=== PATIENT | female | born 1970 | race Caucasian/White ===

== ENCOUNTER → 2016-10-05 | Outpatient (CLI) | payer MEDICARE ==
[~2016-10-05] MED LIST: ADV500INH INH; ALBU83IN INH; ARIP15TAB PO; ASCO500T PO; CALC1TAB9 PO; CALCD50TA PO; CLON1TAB PO; COMBAER6 INH; DOCU100T8 PO; DRIS50002 PO; ENOX30IN3 SC; FLUV100T2 PO; GABA-279 PO; HYDR-4274 PO; HYDR25TAB PO; IPRASOL4 INH; LABE10TAB PO; LISI40TAB PO; LOVE1INJ2 SC; NEUR100C PO; OXYC-517 PO; OXYC15TA76 PO; OXYC1TAB56 PO; PRED25TA PO; PRED5TA PO; PROA1AER INH; SENN1TAB4 PO; SERT-138 PO; SULF1TAB72 PO; VITA-122 PO
--- NOTE | 2016-10-05 08:44 | REP ---
Chest x-ray: Two views. History: Essential hypertension. . Comparison study: No comparison chest x-ray . Findings: The lungs are well inflated and free of infiltrate. The pleural angles are sharp. The heart size is normal. Pulmonary vasculature is not increased. No significant bony abnormality is seen. There is mild old wedging of one of the lower thoracic vertebrae. Degenerative disc changes are seen in association with this. There are clips in the right upper quadrant of the abdomen. Impression: Old mild wedging of one of the lower thoracic vertebrae, otherwise negative chest x-ray. Signed by Ivan Jacobson MD 10/05/2016 08:36 A
[2016-10-05 13:59] LABS: INR 0.89
[2016-10-05 14:05] LABS: BASO % 0.4 % (0.0-1.0); EOS # 0.2 K/mm3 (0.0-0.50); EOS % 1.6 % (0.0-3.0); LARGE UNSTAINED CELL # 0.1 K/mm3 (0.0-0.4); LYMPH % 18.2 % (24.0-44.0); MEAN CORPUSCULAR HEMOGLOBIN 28.8 pg (27.0-33.0); MEAN CORPUSCULAR HGB CONC 33.8 g/dl (32.0-36.5); MEAN CORPUSCULAR VOLUME 85.2 fl (80.0-96.0); MONO # 0.6 K/mm3 (0.0-0.8); MONO % 5.3 % (0.0-5.0); NEUTROPHILS # 8.2 K/mm3 (1.8-7.7); NEUTROPHILS % 73.5 % (36.0-66.0); PLATELET COUNT, AUTOMATED 334 k/mm3 (150-450); RED CELL DISTRIBUTION WIDTH 15.5 % (11.5-14.5); WHITE BLOOD COUNT 11.2 K/mm3 (4.0-10.0)
[2016-10-05 14:06] LABS: ANION GAP 9 MEQ/L (8-16); BLOOD UREA NITROGEN 13 MG/DL (7-18); CARBON DIOXIDE LEVEL 31 MEQ/L (21-32); CHLORIDE LEVEL 101 MEQ/L (98-107); CREATININE FOR GFR 0.59 MG/DL (0.55-1.02); GLOMERULAR FILTRATION RATE > 60.0 (>58); GLUCOSE, FASTING 110 MG/DL (70-105); POTASSIUM SERUM 3.8 MEQ/L (3.5-5.1); SODIUM LEVEL 141 MEQ/L (136-145)
== END ==
LOC: M ADAMS 08:02
PROVIDERS: ATTEND Nurse Practitioner Family
DX: Z01.818 Encounter for other preprocedural examination (principal); M16.12 Unilateral primary osteoarthritis, left hip; I10 Essential (primary) hypertension; E78.5 Hyperlipidemia, unspecified; E27.9 Disorder of adrenal gland, unspecified; J44.9 Chronic obstructive pulmonary disease, unspecified

== ENCOUNTER 2016-10-26 06:59 | Emergency (ER) | payer MEDICARE ==
[2016-10-26] MEDS ORDERED: HYDROmorphone HCL 1 MG/ML SYRINGE (J1170) As Ordered ONE (07:26)
--- NOTE | 2016-10-26 08:14 | REP ---
Clinical: Status post arthroplasty. Technique: AP and cross-table lateral views. Findings: The patient is status post left hip replacement with normal positioning and appearance to the femoral and acetabular components. There is evidence for prior fixation involving the left ischium and pubic rami due to trauma. Free fracture fragments/dystrophic calcifications are identified superior to the galena proximal femur. AP view demonstrates a screw extending at the 12 o'clock position with its tip through bone into the adjacent soft tissue. Impression: Status post left hip replacement as described above. Signed by Garth Smiley MD 10/26/2016 08:06 A
--- NOTE | 2016-10-26 09:01 | REP ---
Left lower extremity Duplex Doppler venous ultrasound: Real time compression and duplex Doppler interrogation of the left lower extremity deep venous system is performed. The left common femoral, superficial femoral and popliteal veins are fully compressible with transducer pressure and demonstrate normal spontaneous and phasic flow, without evidence of deep venous thrombosis. Impression: No evidence of deep venous thrombosis of the left lower extremity femoral popliteal venous system. Incidental note is made of left inguinal lymph nodes, the largest measuring 2.0 x 2.3 x 0.6 cm. Signed by Antwon Carranza MD 10/26/2016 08:53 A
--- NOTE | 2016-10-26 09:49 | EDDOCDS ---
Physician Documentation [facility] Name: Maricel Yates Age: 46 yrs Sex: Female : 1970 Arrival Date: 10/26/2016 Time: 06:59 Bed I2 / M2 Private MD: Tomasa Chapa D Disposition: 10/26/16 09:39 Discharged to Home/Self Care. Impression: Pain in left hip - post-op. - Condition is Stable. - Discharge Instructions: Hip Pain. - Prescriptions for oxycodone 5 mg Oral Tablet - take 1 tablet by ORAL route every 4 hours As needed MDD: 6 tabs; 20 tablet. - Medication Reconciliation form. - Follow up: Emergency Department; When: Call to arrange an appointment; Reason: Wound/Symptom Recheck, Recheck today's complaints, Worsening of conditions, Continuance of care. Follow up: Private Physician; When: Call to arrange an appointment; Reason: Wound/Symptom Recheck, Recheck today's complaints, Worsening of conditions, Continuance of care. - Problem is an acute exacerbation. - Symptoms have improved. - Notes: Call your surgeon for follow up and precription refill upon discharge. Historical: - Allergies: Strawberries; TETRACYCLINES; Theophylline; - Home Meds: 1. Abilify 15 mg Oral tab 1 tab once daily 2. albuterol sulfate 2.5 mg /3 mL (0.083 %) Inhl nebu 3 mL every 4 hours 3. Combivent 18-103 mcg/actuation Inhl aero 4 puffs twice a day 4. fluvoxamine 100 mg Oral tab 1 tab 2 times per day 5. gabapentin 100 mg Oral cap 1 caps 3 times per day 6. hydrochlorothiazide 25 mg Oral tab once daily 7. hydroxyzine HCl 50 mg Oral tab nightly 8. Klonopin 2 mg Oral tab 3 times per day 9. labetalol 100 mg Oral tab 1 tab 2 times per day 10. Vitamin D Oral 16054 unit daily 11. Zoloft 50 mg Oral tab 2 tabs once daily - PMHx: agorophobia; Anxiety; Asthma; COPD; Depression; Emphysema; Hypertension; OCD; - PSHx: Hysterectomy; Cholecystectomy; Knee surgery- Right; left hip surgery x3; - Social history: Smoking status: Patient uses tobacco products, heavy tobacco smoker. No barriers to communication noted, The patient speaks fluent Belizean, Speaks appropriately for age. - Family history: Not pertinent. - : The pt / caregiver states he / she is not on anticoagulants. Home medication list is obtained from the patient. - Exposure Risk Screening:: None identified. 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 3 in. (160.02 cm); Pain 10/; 08:15 BP 172 / 94; Pulse 108; Resp 16; Pulse Ox 98% on R/A; jmk 09:44 BP 169 / 88; Pulse 88; Resp 16; Temp 96.8; Pulse Ox 98% on R/A; jmk 07:10 Body Mass Index 31.53 (80.74 kg, 160.02 cm) mlb1 MDM: 07:10 Undress patient appropriately for examination ordered. cc10 07:25 Dilaudid - HYDROmorphone 1 mg IM once ordered. cc10 07:25 Hip, (AP/Lat) Ordered. EDMS 07:43 Financial registration complete. lg 08:05 US Lower Extremity R/O DVT Ordered. EDMS 08:51 Hip, (AP/Lat) Reviewed. cc10 09:35 [facility] Payment Agreement was scanned into [employer] and attached to record. lg Administered Medications: 07:30 Drug: Dilaudid - HYDROmorphone 1 mg [hydromorphone 1 mg/mL injection syringe (1 mL)] natan Route: IM; Site: left gluteus; Signatures: Dispatcher [employer] EDMS Johnnie Perez RN RN Casimiro Abebe, Reg Reg lg Ankit Steel RN RN mlb1 Rogerio Dominguez PA-C PA-C cc10 The chart was reviewed and I authenticate all verbal orders and agree with the evaluation and treatment provided.Attachments: 09:35 [facility] Payment Agreement lg MTDD
--- NOTE | 2016-10-26 09:49 | EDDOCDS ---
Nurse's Notes Name: Maricel Yates Age: 46 yrs Sex: Female : 1970 Arrival Date: 10/26/2016 Time: 06:59 Bed I2 / M2 Private MD: Tomasa Chapa D Diagnosis: Pain in left hip-post-op Presentation: 10/26 07:06 Presenting complaint: Patient states: Total left hip replacement 9 days ago, increased mlb1 pain since therapy last evening "I was on Oxy and I'm out I need to be admitted or something for pain". Adult Sepsis Screening: The patient does not have new or worsening altered mentation. Patient's respiratory rate is less than 22. Systolic blood pressure is greater than 100. Patient has a qSOFA score of 0- Negative Sepsis Screen. Suicide/Homicide risk assessment- the patient denies having any suicidal and/or homicidal ideations and does not present with any other emotional, behavioral or mental health complaints. 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 Transition of care: patient was not received from another setting of care. 07:06 Acuity: NICO Level 4 mlb1 07:06 Method Of Arrival: Walkin/Carried/Asstd mlb1 Triage Assessment: 07:10 General: Appears distressed, Behavior is cooperative. Pain: Location: left hip Pain mlb1 currently is 10 out of 10 on a pain scale. HIV screening NA for this visit Offered previously. 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 Abilify 15 mg Oral tab 1 tab once daily 2. albuterol sulfate 2.5 mg /3 mL (0.083 %) Inhl nebu 3 mL every 4 hours 3. Combivent 18-103 mcg/actuation Inhl aero 4 puffs twice a day 4. fluvoxamine 100 mg Oral tab 1 tab 2 times per day 5. gabapentin 100 mg Oral cap 1 caps 3 times per day 6. hydrochlorothiazide 25 mg Oral tab once daily 7. hydroxyzine HCl 50 mg Oral tab nightly 8. Klonopin 2 mg Oral tab 3 times per day 9. labetalol 100 mg Oral tab 1 tab 2 times per day 10. Vitamin D Oral 54455 unit daily 11. Zoloft 50 mg Oral tab 2 tabs once daily - PMHx: agorophobia; Anxiety; Asthma; COPD; Depression; Emphysema; Hypertension; OCD; - PSHx: Hysterectomy; Cholecystectomy; Knee surgery- Right; left hip surgery x3; - Social history: Smoking status: Patient uses tobacco products, heavy tobacco smoker. No barriers to communication noted, The patient speaks fluent Emirati, Speaks appropriately for age. - Family history: Not pertinent. - : The pt / caregiver states he / she is not on anticoagulants. Home medication list is obtained from the patient. - Exposure Risk Screening:: None identified. Screenin:23 Screening information is obtained from the patient. Fall risk: No risks identified. [facility] Assistance ADL's: requires no assistance with activities of daily living. Abuse/DV Screen: The patient / caregiver reports he/she is: not in a situation that causes fear, pain or injury. Nutritional screening: No deficits noted. Advance Directives: Currently, there is no health care proxy. There is no active DNR order. There is no living will. There is no Power of Plastic Finisher. home support is adequate. Assessment: 07:21 General: Appears skin warm and dry color satisfactory. moist pink oral mucosa. teary. k indicates last dose of narcotic this am without effect. reports one attempt to contact surgeon without success. surgical incision is unremarkable. cal intact and edges approximated without increased warmth, redness or drainage.. 08:13 General: Appears x rays completed. initially reports no change in pain, but later in k conversation reports pain has decreased to 8/10 from 10/10. heat applied for comofort.. 09:44 General: Appears reports pain has decreased to 6/10 and is now receptive to discharge.. [facility] Vital Signs: 07:10 BP 169 / 94; Pulse 110; Resp 18; Temp 98.4(TE); Pulse Ox 95% on R/A; Weight 80.74 kg mlb1 (R); Height 5 ft. 3 in. (160.02 cm); Pain 10/10; 08:15 BP 172 / 94; Pulse 108; Resp 16; Pulse Ox 98% on R/A; jmk 09:44 BP 169 / 88; Pulse 88; Resp 16; Temp 96.8; Pulse Ox 98% on R/A; k 07:10 Body Mass Index 31.53 (80.74 kg, 160.02 cm) [facility] Vitals: 07:10 Log In Time: October 26, 2016 at 06:59. mlb1 ED Course: 07:01 Patient visited by Bassem Watson Reg. pm4 07:01 Tomasa Chapa is Private Physician. pm4 07:01 Patient moved to Waiting pm4 07:06 Patient visited by Ankit Steel RN. mlb1 07:07 Triage Initiated mlb1 07:11 Patient visited by Ankit Steel RN. mlb1 07:12 Rogerio Dominguez PA-C is PHCP. cc10 07:12 Philip Macedo MD is Attending Physician. cc10 07:12 Patient moved to I2 / M2 cc10 07:17 Patient visited by Rogerio Dominguez PA-C. cc10 07:17 Patient visited by Rogerio Dominguez PA-C. cc10 07:23 The patient / caregiver is instructed regarding the plan of care and ED course. jmk 08:16 Patient visited by Johnnie Perez RN. jmk 08:17 Patient moved to Ultrasound eg2 08:18 Hip, (AP/Lat) Returned. EDMS 08:38 Patient moved to I2 / M2 jmk 09:32 US Lower Extremity R/O DVT Returned. EDMS 09:35 [facility] Payment Agreement was scanned into [employer] and attached to record. lg 09:44 No IV's were initiated during this patient's visit. No procedures done that require [facility] assistance. Administered Medications: 07:30 Drug: Dilaudid - HYDROmorphone 1 mg [hydromorphone 1 mg/mL injection syringe (1 mL)] [facility] Route: IM; Site: left gluteus; Order Results: Radiology Order: Hip, (AP/Lat) Test: Hip, (AP/Lat) REASON FOR EXAMINATION: post-op; Clinical: Status post arthroplasty.; ; Technique: AP and cross-table lateral views.; ; Findings: The patient is status post left hip replacement with normal; positioning and appearance to the femoral and acetabular components. There is; evidence for prior fixation involving the left ischium and pubic rami due to; trauma. Free fracture fragments/dystrophic calcifications are identified; superior to the eagle proximal femur. AP view demonstrates a screw extending at; the 12 o'clock position with its tip through bone into the adjacent soft tissue.; ; ; Impression:; Status post left hip replacement as described above.; ; ; Signed by; Garth Smiley MD 10/26/2016 08:06 A; Radiology Order: US Lower Extremity R/O DVT Test: US Lower Extremity R/O DVT REASON FOR EXAMINATION: r/o DVT; Left lower extremity Duplex Doppler venous ultrasound:; ; Real time compression and duplex Doppler interrogation of the left lower; extremity deep venous system is performed. The left common femoral, superficial; femoral and popliteal veins are fully compressible with transducer pressure and; demonstrate normal spontaneous and phasic flow, without evidence of deep venous; thrombosis.; ; Impression:; ; No evidence of deep venous thrombosis of the left lower extremity femoral; popliteal venous system. Incidental note is made of left inguinal lymph nodes,; the largest measuring 2.0 x 2.3 x 0.6 cm.; ; ; Signed by; Antwon Carranza MD 10/26/2016 08:53 A; Outcome: 09:39 Discharge ordered by Provider. cc10 09:44 Discharge Assessment: Patient awake, alert and oriented x 3. No cognitive and/or k functional deficits noted. Patient verbalized understanding of disposition instructions. patient administered narcotics - yes. The following High Risk Discharge criteria are identified: None. Discharged to home with crutches. Condition: good. Discharge instructions given to patient. Ultrasound Study completed. Property :Personal belongings accompany Pt. 09:48 Patient left the ED. natan Signatures: Dispatcher [employer] EDMS Johnnie Perez,RN Casimiro Richter, Reg Reg lg Ankit Steel, RN RN mlYvrose Jin eg2 Rogerio Dominguez, PA-C PA-C cc10 Bassem Watson, Reg Reg pm4 MTDD
--- NOTE | 2016-10-28 10:49 | EDDOCDS ---
Physician Documentation [facility] Name: Maricel Yates Age: 46 yrs Sex: Female : 1970 Arrival Date: 10/26/2016 Time: 06:59 Bed I2 / M2 Private MD: Tomasa Clarke D Disposition: 10/26/16 09:39 Discharged to Home/Self Care. Impression: Pain in left hip - post-op. - Condition is Stable. - Discharge Instructions: Hip Pain. - Prescriptions for oxycodone 5 mg Oral Tablet - take 1 tablet by ORAL route every 4 hours As needed MDD: 6 tabs; 20 tablet. - Medication Reconciliation form. - Follow up: Emergency Department; When: Call to arrange an appointment; Reason: Wound/Symptom Recheck, Recheck today's complaints, Worsening of conditions, Continuance of care. Follow up: Private Physician; When: Call to arrange an appointment; Reason: Wound/Symptom Recheck, Recheck today's complaints, Worsening of conditions, Continuance of care. - Problem is an acute exacerbation. - Symptoms have improved. - Notes: Call your surgeon for follow up and precription refill upon discharge. Historical: - Allergies: Strawberries; TETRACYCLINES; Theophylline; - Home Meds: 1. Abilify 15 mg Oral tab 1 tab once daily 2. albuterol sulfate 2.5 mg /3 mL (0.083 %) Inhl nebu 3 mL every 4 hours 3. Combivent 18-103 mcg/actuation Inhl aero 4 puffs twice a day 4. fluvoxamine 100 mg Oral tab 1 tab 2 times per day 5. gabapentin 100 mg Oral cap 1 caps 3 times per day 6. hydrochlorothiazide 25 mg Oral tab once daily 7. hydroxyzine HCl 50 mg Oral tab nightly 8. Klonopin 2 mg Oral tab 3 times per day 9. labetalol 100 mg Oral tab 1 tab 2 times per day 10. Vitamin D Oral 85414 unit daily 11. Zoloft 50 mg Oral tab 2 tabs once daily - PMHx: agorophobia; Anxiety; Asthma; COPD; Depression; Emphysema; Hypertension; OCD; - PSHx: Hysterectomy; Cholecystectomy; Knee surgery- Right; left hip surgery x3; - Social history: Smoking status: Patient uses tobacco products, heavy tobacco smoker. No barriers to communication noted, The patient speaks fluent Lao, Speaks appropriately for age. - Family history: Not pertinent. - : The pt / caregiver states he / she is not on anticoagulants. Home medication list is obtained from the patient. - Exposure Risk Screening:: None identified. 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 3 in. (160.02 cm); Pain 10/10; 08:15 BP 172 / 94; Pulse 108; Resp 16; Pulse Ox 98% on R/A; jmk 09:44 BP 169 / 88; Pulse 88; Resp 16; Temp 96.8; Pulse Ox 98% on R/A; jmk 07:10 Body Mass Index 31.53 (80.74 kg, 160.02 cm) mlb1 MDM: 07:10 Undress patient appropriately for examination ordered. cc10 07:25 Dilaudid - HYDROmorphone 1 mg IM once ordered. cc10 07:25 Hip, (AP/Lat) Ordered. EDMS 07:43 Financial registration complete. lg 08:05 US Lower Extremity R/O DVT Ordered. EDMS 08:51 Hip, (AP/Lat) Reviewed. cc10 09:35 [facility] Payment Agreement was scanned into [employer] and attached to record. lg 12:51 T-Sheet-- Draft Copy was scanned into [employer] and attached to record. klr 12:59 ED course: trisha lcarke faxed formal report of us extermity for fu mlg. ml Administered Medications: 07:30 Drug: Dilaudid - HYDROmorphone 1 mg [hydromorphone 1 mg/mL injection syringe (1 mL)] natan Route: IM; Site: left gluteus; Signatures: Dispatcher [employer] EDDC Mirna Cramer MD MD ml Johnnie Perez,RN RN Casimiro Calvo, Reg Reg lg Ankit Steel RN RN mlb1 Rogerio Dominguez PA-C PA-Dawson cc10 Libby Evans The chart was reviewed and I authenticate all verbal orders and agree with the evaluation and treatment provided.Attachments: 09:35 [facility] Payment Agreement lg 12:51 T-Sheet-- Draft Copy jaswant Chart Complete MTDD
--- NOTE | 2016-10-28 10:49 | EDDOCDS ---
Physician Documentation [facility] Name: Maricel Yates Age: 46 yrs Sex: Female : 1970 Arrival Date: 10/26/2016 Time: 06:59 Bed I2 / M2 Private MD: Tomasa Clarke D Disposition: 10/26/16 09:39 Discharged to Home/Self Care. Impression: Pain in left hip - post-op. - Condition is Stable. - Discharge Instructions: Hip Pain. - Prescriptions for oxycodone 5 mg Oral Tablet - take 1 tablet by ORAL route every 4 hours As needed MDD: 6 tabs; 20 tablet. - Medication Reconciliation form. - Follow up: Emergency Department; When: Call to arrange an appointment; Reason: Wound/Symptom Recheck, Recheck today's complaints, Worsening of conditions, Continuance of care. Follow up: Private Physician; When: Call to arrange an appointment; Reason: Wound/Symptom Recheck, Recheck today's complaints, Worsening of conditions, Continuance of care. - Problem is an acute exacerbation. - Symptoms have improved. - Notes: Call your surgeon for follow up and precription refill upon discharge. Historical: - Allergies: Strawberries; TETRACYCLINES; Theophylline; - Home Meds: 1. Abilify 15 mg Oral tab 1 tab once daily 2. albuterol sulfate 2.5 mg /3 mL (0.083 %) Inhl nebu 3 mL every 4 hours 3. Combivent 18-103 mcg/actuation Inhl aero 4 puffs twice a day 4. fluvoxamine 100 mg Oral tab 1 tab 2 times per day 5. gabapentin 100 mg Oral cap 1 caps 3 times per day 6. hydrochlorothiazide 25 mg Oral tab once daily 7. hydroxyzine HCl 50 mg Oral tab nightly 8. Klonopin 2 mg Oral tab 3 times per day 9. labetalol 100 mg Oral tab 1 tab 2 times per day 10. Vitamin D Oral 89383 unit daily 11. Zoloft 50 mg Oral tab 2 tabs once daily - PMHx: agorophobia; Anxiety; Asthma; COPD; Depression; Emphysema; Hypertension; OCD; - PSHx: Hysterectomy; Cholecystectomy; Knee surgery- Right; left hip surgery x3; - Social history: Smoking status: Patient uses tobacco products, heavy tobacco smoker. No barriers to communication noted, The patient speaks fluent Tristanian, Speaks appropriately for age. - Family history: Not pertinent. - : The pt / caregiver states he / she is not on anticoagulants. Home medication list is obtained from the patient. - Exposure Risk Screening:: None identified. 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 3 in. (160.02 cm); Pain 10/10; 08:15 BP 172 / 94; Pulse 108; Resp 16; Pulse Ox 98% on R/A; jmk 09:44 BP 169 / 88; Pulse 88; Resp 16; Temp 96.8; Pulse Ox 98% on R/A; jmk 07:10 Body Mass Index 31.53 (80.74 kg, 160.02 cm) mlb1 MDM: 07:10 Undress patient appropriately for examination ordered. cc10 07:25 Dilaudid - HYDROmorphone 1 mg IM once ordered. cc10 07:25 Hip, (AP/Lat) Ordered. EDMS 07:43 Financial registration complete. lg 08:05 US Lower Extremity R/O DVT Ordered. EDMS 08:51 Hip, (AP/Lat) Reviewed. cc10 09:35 [facility] Payment Agreement was scanned into [employer] and attached to record. lg 12:51 T-Sheet-- Draft Copy was scanned into [employer] and attached to record. klr 12:59 ED course: trisha clarke faxed formal report of us extermity for fu mlg. ml Administered Medications: 07:30 Drug: Dilaudid - HYDROmorphone 1 mg [hydromorphone 1 mg/mL injection syringe (1 mL)] natan Route: IM; Site: left gluteus; Signatures: Dispatcher [employer] EDOH Mirna Cramer MD MD ml Johnnie Perez,RN RN Casimiro Calvo, Reg Reg lg Ankit Steel RN RN mlb1 Rogerio Dominguez PA-C PA-Dawson cc10 Libby Evans The chart was reviewed and I authenticate all verbal orders and agree with the evaluation and treatment provided.Attachments: 09:35 [facility] Payment Agreement lg 12:51 T-Sheet-- Draft Copy jaswant Chart Complete MTDD
--- NOTE | 2016-10-28 10:49 | EDDOCDS ---
Nurse's Notes [facility] Name: Maricel Yates Age: 46 yrs Sex: Female : 1970 Arrival Date: 10/26/2016 Time: 06:59 Bed I2 / M2 Private MD: Tomasa Chapa D Diagnosis: Pain in left hip-post-op Presentation: 10/26 07:06 Presenting complaint: Patient states: Total left hip replacement 9 days ago, increased mlb1 pain since therapy last evening "I was on Oxy and I'm out I need to be admitted or something for pain". Adult Sepsis Screening: The patient does not have new or worsening altered mentation. Patient's respiratory rate is less than 22. Systolic blood pressure is greater than 100. Patient has a qSOFA score of 0- Negative Sepsis Screen. Suicide/Homicide risk assessment- the patient denies having any suicidal and/or homicidal ideations and does not present with any other emotional, behavioral or mental health complaints. Status: Patient is not a service delivery management consultant or dependent. Transition of care: patient was not received from another setting of care. 07:06 Acuity: NICO Level 4 mlb1 07:06 Method Of Arrival: Walkin/Carried/Asstd mlb1 Triage Assessment: 07:10 General: Appears distressed, Behavior is cooperative. Pain: Location: left hip Pain mlb1 currently is 10 out of 10 on a pain scale. HIV screening NA for this visit Offered previously. 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 Abilify 15 mg Oral tab 1 tab once daily 2. albuterol sulfate 2.5 mg /3 mL (0.083 %) Inhl nebu 3 mL every 4 hours 3. Combivent 18-103 mcg/actuation Inhl aero 4 puffs twice a day 4. fluvoxamine 100 mg Oral tab 1 tab 2 times per day 5. gabapentin 100 mg Oral cap 1 caps 3 times per day 6. hydrochlorothiazide 25 mg Oral tab once daily 7. hydroxyzine HCl 50 mg Oral tab nightly 8. Klonopin 2 mg Oral tab 3 times per day 9. labetalol 100 mg Oral tab 1 tab 2 times per day 10. Vitamin D Oral 85334 unit daily 11. Zoloft 50 mg Oral tab 2 tabs once daily - PMHx: agorophobia; Anxiety; Asthma; COPD; Depression; Emphysema; Hypertension; OCD; - PSHx: Hysterectomy; Cholecystectomy; Knee surgery- Right; left hip surgery x3; - Social history: Smoking status: Patient uses tobacco products, heavy tobacco smoker. No barriers to communication noted, The patient speaks fluent Palestinian, Speaks appropriately for age. - Family history: Not pertinent. - : The pt / caregiver states he / she is not on anticoagulants. Home medication list is obtained from the patient. - Exposure Risk Screening:: None identified. Screenin:23 Screening information is obtained from the patient. Fall risk: No risks identified. [facility] Assistance ADL's: requires no assistance with activities of daily living. Abuse/DV Screen: The patient / caregiver reports he/she is: not in a situation that causes fear, pain or injury. Nutritional screening: No deficits noted. Advance Directives: Currently, there is no health care proxy. There is no active DNR order. There is no living will. There is no Power of Pharmacy Innovation Assistant. home support is adequate. Assessment: 07:21 General: Appears skin warm and dry color satisfactory. moist pink oral mucosa. teary. k indicates last dose of narcotic this am without effect. reports one attempt to contact surgeon without success. surgical incision is unremarkable. cal intact and edges approximated without increased warmth, redness or drainage.. 08:13 General: Appears x rays completed. initially reports no change in pain, but later in k conversation reports pain has decreased to 8/10 from 10/10. heat applied for comofort.. 09:44 General: Appears reports pain has decreased to 6/10 and is now receptive to discharge.. [facility] Vital Signs: 07:10 BP 169 / 94; Pulse 110; Resp 18; Temp 98.4(TE); Pulse Ox 95% on R/A; Weight 80.74 kg mlb1 (R); Height 5 ft. 3 in. (160.02 cm); Pain 10/10; 08:15 BP 172 / 94; Pulse 108; Resp 16; Pulse Ox 98% on R/A; jmk 09:44 BP 169 / 88; Pulse 88; Resp 16; Temp 96.8; Pulse Ox 98% on R/A; k 07:10 Body Mass Index 31.53 (80.74 kg, 160.02 cm) [facility] Vitals: 07:10 Log In Time: October 26, 2016 at 06:59. mlb1 ED Course: 07:01 Patient visited by Bassem Watson Reg. pm4 07:01 Tomasa Chapa is Private Physician. pm4 07:01 Patient moved to Waiting pm4 07:06 Patient visited by Ankit Steel RN. mlb1 07:07 Triage Initiated mlb1 07:11 Patient visited by Ankit Steel RN. mlb1 07:12 Rogerio Dominguez PA-C is PHCP. cc10 07:12 Philip Macedo MD is Attending Physician. cc10 07:12 Patient moved to I2 / M2 cc10 07:17 Patient visited by Rogerio Dominguez PA-C. cc10 07:17 Patient visited by Rogerio Dominguez PA-C. cc10 07:23 The patient / caregiver is instructed regarding the plan of care and ED course. jmk 08:16 Patient visited by Johnnie Perez RN. jmk 08:17 Patient moved to Ultrasound eg2 08:18 Hip, (AP/Lat) Returned. EDMS 08:38 Patient moved to I2 / M2 jmk 09:32 US Lower Extremity R/O DVT Returned. EDMS 09:35 [facility] Payment Agreement was scanned into [employer] and attached to record. lg 09:44 No IV's were initiated during this patient's visit. No procedures done that require k assistance. 12:51 T-Sheet-- Draft Copy was scanned into [employer] and attached to record. klr Administered Medications: 07:30 Drug: Dilaudid - HYDROmorphone 1 mg [hydromorphone 1 mg/mL injection syringe (1 mL)] [facility] Route: IM; Site: left gluteus; Order Results: Radiology Order: Hip, (AP/Lat) Test: Hip, (AP/Lat) REASON FOR EXAMINATION: post-op; Clinical: Status post arthroplasty.; ; Technique: AP and cross-table lateral views.; ; Findings: The patient is status post left hip replacement with normal; positioning and appearance to the femoral and acetabular components. There is; evidence for prior fixation involving the left ischium and pubic rami due to; trauma. Free fracture fragments/dystrophic calcifications are identified; superior to the [place] proximal femur. AP view demonstrates a screw extending at; the 12 o'clock position with its tip through bone into the adjacent soft tissue.; ; ; Impression:; Status post left hip replacement as described above.; ; ; Signed by; Garth Smiley MD 10/26/2016 08:06 A; Radiology Order: US Lower Extremity R/O DVT Test: US Lower Extremity R/O DVT REASON FOR EXAMINATION: r/o DVT; Left lower extremity Duplex Doppler venous ultrasound:; ; Real time compression and duplex Doppler interrogation of the left lower; extremity deep venous system is performed. The left common femoral, superficial; femoral and popliteal veins are fully compressible with transducer pressure and; demonstrate normal spontaneous and phasic flow, without evidence of deep venous; thrombosis.; ; Impression:; ; No evidence of deep venous thrombosis of the left lower extremity femoral; popliteal venous system. Incidental note is made of left inguinal lymph nodes,; the largest measuring 2.0 x 2.3 x 0.6 cm.; ; ; Signed by; Antwon Carranza MD 10/26/2016 08:53 A; Outcome: 09:39 Discharge ordered by Provider. cc10 09:44 Discharge Assessment: Patient awake, alert and oriented x 3. No cognitive and/or k functional deficits noted. Patient verbalized understanding of disposition instructions. patient administered narcotics - yes. The following High Risk Discharge criteria are identified: None. Discharged to home with crutches. Condition: good. Discharge instructions given to patient. Ultrasound Study completed. Property :Personal belongings accompany Pt. 09:48 Patient left the ED. [facility] Signatures: Dispatcher [employer] EDMS Johnnie Perez,RN RN Casimiro Calvo, Reg Reg lg Ankit Steel RN RN Yvrose Seals eg2 Rogerio Dominguez PAFlynnC PA-C cc10 Libby Evans Paul, Reg Reg pm4 Chart Complete MTDD
--- NOTE | 2016-11-03 14:08 | EDDOCDS ---
Nurse's Notes [facility] Name: Maricel Yates Age: 46 yrs Sex: Female : 1970 Arrival Date: 10/26/2016 Time: 06:59 Bed I2 / M2 Private MD: Tomasa Chapa D Diagnosis: Pain in left hip-post-op Presentation: 10/26 07:06 Presenting complaint: Patient states: Total left hip replacement 9 days ago, increased mlb1 pain since therapy last evening "I was on Oxy and I'm out I need to be admitted or something for pain". Adult Sepsis Screening: The patient does not have new or worsening altered mentation. Patient's respiratory rate is less than 22. Systolic blood pressure is greater than 100. Patient has a qSOFA score of 0- Negative Sepsis Screen. Suicide/Homicide risk assessment- the patient denies having any suicidal and/or homicidal ideations and does not present with any other emotional, behavioral or mental health complaints. Status: Patient is not a enrollment services dean or dependent. Transition of care: patient was not received from another setting of care. 07:06 Acuity: NICO Level 4 mlb1 07:06 Method Of Arrival: Walkin/Carried/Asstd mlb1 Triage Assessment: 07:10 General: Appears distressed, Behavior is cooperative. Pain: Location: left hip Pain mlb1 currently is 10 out of 10 on a pain scale. HIV screening NA for this visit Offered previously. 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 Abilify 15 mg Oral tab 1 tab once daily 2. albuterol sulfate 2.5 mg /3 mL (0.083 %) Inhl nebu 3 mL every 4 hours 3. Combivent 18-103 mcg/actuation Inhl aero 4 puffs twice a day 4. fluvoxamine 100 mg Oral tab 1 tab 2 times per day 5. gabapentin 100 mg Oral cap 1 caps 3 times per day 6. hydrochlorothiazide 25 mg Oral tab once daily 7. hydroxyzine HCl 50 mg Oral tab nightly 8. Klonopin 2 mg Oral tab 3 times per day 9. labetalol 100 mg Oral tab 1 tab 2 times per day 10. Vitamin D Oral 93484 unit daily 11. Zoloft 50 mg Oral tab 2 tabs once daily - PMHx: agorophobia; Anxiety; Asthma; COPD; Depression; Emphysema; Hypertension; OCD; - PSHx: Hysterectomy; Cholecystectomy; Knee surgery- Right; left hip surgery x3; - Social history: Smoking status: Patient uses tobacco products, heavy tobacco smoker. No barriers to communication noted, The patient speaks fluent Armenian, Speaks appropriately for age. - Family history: Not pertinent. - : The pt / caregiver states he / she is not on anticoagulants. Home medication list is obtained from the patient. - Exposure Risk Screening:: None identified. Screenin:23 Screening information is obtained from the patient. Fall risk: No risks identified. [facility] Assistance ADL's: requires no assistance with activities of daily living. Abuse/DV Screen: The patient / caregiver reports he/she is: not in a situation that causes fear, pain or injury. Nutritional screening: No deficits noted. Advance Directives: Currently, there is no health care proxy. There is no active DNR order. There is no living will. There is no Power of Cuprous Chloride Operator. home support is adequate. Assessment: 07:21 General: Appears skin warm and dry color satisfactory. moist pink oral mucosa. teary. k indicates last dose of narcotic this am without effect. reports one attempt to contact surgeon without success. surgical incision is unremarkable. cal intact and edges approximated without increased warmth, redness or drainage.. 08:13 General: Appears x rays completed. initially reports no change in pain, but later in k conversation reports pain has decreased to 8/10 from 10/10. heat applied for comofort.. 09:44 General: Appears reports pain has decreased to 6/10 and is now receptive to discharge.. [facility] Vital Signs: 07:10 BP 169 / 94; Pulse 110; Resp 18; Temp 98.4(TE); Pulse Ox 95% on R/A; Weight 80.74 kg mlb1 (R); Height 5 ft. 3 in. (160.02 cm); Pain 10/10; 08:15 BP 172 / 94; Pulse 108; Resp 16; Pulse Ox 98% on R/A; jmk 09:44 BP 169 / 88; Pulse 88; Resp 16; Temp 96.8; Pulse Ox 98% on R/A; k 07:10 Body Mass Index 31.53 (80.74 kg, 160.02 cm) [facility] [place] Vitals: 07:10 Log In Time: October 26, 2016 at 06:59. mlb1 ED Course: 07:01 Patient visited by Bassem Watson Reg. pm4 07:01 Tomasa Chapa is Private Physician. pm4 07:01 Patient moved to Waiting pm4 07:06 Patient visited by Ankit Steel RN. mlb1 07:07 Triage Initiated mlb1 07:11 Patient visited by Ankit Steel RN. mlb1 07:12 Rogerio Dominguez PA-C is PHCP. cc10 07:12 Philip Macedo MD is Attending Physician. cc10 07:12 Patient moved to I2 / M2 cc10 07:17 Patient visited by Rogerio Dominguez PA-C. cc10 07:17 Patient visited by Rogerio Dominguez PA-C. cc10 07:23 The patient / caregiver is instructed regarding the plan of care and ED course. jmk 08:16 Patient visited by Johnnie Perez RN. jmk 08:17 Patient moved to Ultrasound eg2 08:18 Hip, (AP/Lat) Returned. EDMS 08:38 Patient moved to I2 / M2 jmk 09:32 US Lower Extremity R/O DVT Returned. EDMS 09:35 [facility] Payment Agreement was scanned into [employer] and attached to record. lg 09:44 No IV's were initiated during this patient's visit. No procedures done that require k assistance. 12:51 T-Sheet-- Draft Copy was scanned into [employer] and attached to record. klr Administered Medications: 07:30 Drug: Dilaudid - HYDROmorphone 1 mg [hydromorphone 1 mg/mL injection syringe (1 mL)] [facility] Route: IM; Site: left gluteus; Order Results: Radiology Order: Hip, (AP/Lat) Test: Hip, (AP/Lat) REASON FOR EXAMINATION: post-op; Clinical: Status post arthroplasty.; ; Technique: AP and cross-table lateral views.; ; Findings: The patient is status post left hip replacement with normal; positioning and appearance to the femoral and acetabular components. There is; evidence for prior fixation involving the left ischium and pubic rami due to; trauma. Free fracture fragments/dystrophic calcifications are identified; superior to the [place] proximal femur. AP view demonstrates a screw extending at; the 12 o'clock position with its tip through bone into the adjacent soft tissue.; ; ; Impression:; Status post left hip replacement as described above.; ; ; Signed by; Garth Smiley MD 10/26/2016 08:06 A; Radiology Order: US Lower Extremity R/O DVT Test: US Lower Extremity R/O DVT REASON FOR EXAMINATION: r/o DVT; Left lower extremity Duplex Doppler venous ultrasound:; ; Real time compression and duplex Doppler interrogation of the left lower; extremity deep venous system is performed. The left common femoral, superficial; femoral and popliteal veins are fully compressible with transducer pressure and; demonstrate normal spontaneous and phasic flow, without evidence of deep venous; thrombosis.; ; Impression:; ; No evidence of deep venous thrombosis of the left lower extremity femoral; popliteal venous system. Incidental note is made of left inguinal lymph nodes,; the largest measuring 2.0 x 2.3 x 0.6 cm.; ; ; Signed by; Antwon Carranza MD 10/26/2016 08:53 A; Outcome: 09:39 Discharge ordered by Provider. cc10 09:44 Discharge Assessment: Patient awake, alert and oriented x 3. No cognitive and/or k functional deficits noted. Patient verbalized understanding of disposition instructions. patient administered narcotics - yes. The following High Risk Discharge criteria are identified: None. Discharged to home with crutches. Condition: good. Discharge instructions given to patient. Ultrasound Study completed. Property :Personal belongings accompany Pt. 09:48 Patient left the ED. natan Addendum: 11/03/2016 14:06 Narrative: patient called back after receiving certified letter - given results of U/S kcs and instructed to f/u with PMD. Signatures: Dispatcher [employer] EDMS Sandra Weems RN Johnnie Jaramillo RN RN jmk Ganter, LoriLee, Reg Reg lg Ankit Steel RN RN mlb1 Yvrose Arroyo eg2 Rogerio Dominguez, PA-C PA-C cc10 Libby Evans Paul, Reg Reg pm4 MTDD
--- NOTE | 2016-11-03 14:08 | EDDOCDS ---
Physician Documentation [facility] Name: Maricel Yates Age: 46 yrs Sex: Female : 1970 Arrival Date: 10/26/2016 Time: 06:59 Bed I2 / M2 Private MD: Tomasa Clarke D Disposition: 10/26/16 09:39 Discharged to Home/Self Care. Impression: Pain in left hip - post-op. - Condition is Stable. - Discharge Instructions: Hip Pain. - Prescriptions for oxycodone 5 mg Oral Tablet - take 1 tablet by ORAL route every 4 hours As needed MDD: 6 tabs; 20 tablet. - Medication Reconciliation form. - Follow up: Emergency Department; When: Call to arrange an appointment; Reason: Wound/Symptom Recheck, Recheck today's complaints, Worsening of conditions, Continuance of care. Follow up: Private Physician; When: Call to arrange an appointment; Reason: Wound/Symptom Recheck, Recheck today's complaints, Worsening of conditions, Continuance of care. - Problem is an acute exacerbation. - Symptoms have improved. - Notes: Call your surgeon for follow up and precription refill upon discharge. Historical: - Allergies: Strawberries; TETRACYCLINES; Theophylline; - Home Meds: 1. Abilify 15 mg Oral tab 1 tab once daily 2. albuterol sulfate 2.5 mg /3 mL (0.083 %) Inhl nebu 3 mL every 4 hours 3. Combivent 18-103 mcg/actuation Inhl aero 4 puffs twice a day 4. fluvoxamine 100 mg Oral tab 1 tab 2 times per day 5. gabapentin 100 mg Oral cap 1 caps 3 times per day 6. hydrochlorothiazide 25 mg Oral tab once daily 7. hydroxyzine HCl 50 mg Oral tab nightly 8. Klonopin 2 mg Oral tab 3 times per day 9. labetalol 100 mg Oral tab 1 tab 2 times per day 10. Vitamin D Oral 86825 unit daily 11. Zoloft 50 mg Oral tab 2 tabs once daily - PMHx: agorophobia; Anxiety; Asthma; COPD; Depression; Emphysema; Hypertension; OCD; - PSHx: Hysterectomy; Cholecystectomy; Knee surgery- Right; left hip surgery x3; - Social history: Smoking status: Patient uses tobacco products, heavy tobacco smoker. No barriers to communication noted, The patient speaks fluent Welsh, Speaks appropriately for age. - Family history: Not pertinent. - : The pt / caregiver states he / she is not on anticoagulants. Home medication list is obtained from the patient. - Exposure Risk Screening:: None identified. 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 3 in. (160.02 cm); Pain 10/10; 08:15 BP 172 / 94; Pulse 108; Resp 16; Pulse Ox 98% on R/A; jmk 09:44 BP 169 / 88; Pulse 88; Resp 16; Temp 96.8; Pulse Ox 98% on R/A; jmk 07:10 Body Mass Index 31.53 (80.74 kg, 160.02 cm) mlb1 MDM: 07:10 Undress patient appropriately for examination ordered. cc10 07:25 Dilaudid - HYDROmorphone 1 mg IM once ordered. cc10 07:25 Hip, (AP/Lat) Ordered. EDMS 07:43 Financial registration complete. lg 08:05 US Lower Extremity R/O DVT Ordered. EDMS 08:51 Hip, (AP/Lat) Reviewed. cc10 09:35 [facility] Payment Agreement was scanned into [employer] and attached to record. lg 12:51 T-Sheet-- Draft Copy was scanned into [employer] and attached to record. klr 12:59 ED course: trisha clarke faxed formal report of us extermity for fu mlg. ml Administered Medications: 07:30 Drug: Dilaudid - HYDROmorphone 1 mg [hydromorphone 1 mg/mL injection syringe (1 mL)] natan Route: IM; Site: left gluteus; Signatures: Dispatcher [employer] EDMD Mirna Cramer MD MD ml Johnnie Perez,RN RN Casimiro Calvo, Reg Reg lg Ankit Steel RN RN mlb1 Rogerio Dominguez PA-C PA-Dawson cc10 Libby Evans The chart was reviewed and I authenticate all verbal orders and agree with the evaluation and treatment provided.Attachments: 09:35 [facility] Payment Agreement lg 12:51 T-Sheet-- Draft Copy jaswant MTDD
--- NOTE | 2016-11-03 14:08 | EDDOCDS ---
Physician Documentation [facility] Name: Maricel Yates Age: 46 yrs Sex: Female : 1970 Arrival Date: 10/26/2016 Time: 06:59 Bed I2 / M2 Private MD: Tomasa Clarke D Disposition: 10/26/16 09:39 Discharged to Home/Self Care. Impression: Pain in left hip - post-op. - Condition is Stable. - Discharge Instructions: Hip Pain. - Prescriptions for oxycodone 5 mg Oral Tablet - take 1 tablet by ORAL route every 4 hours As needed MDD: 6 tabs; 20 tablet. - Medication Reconciliation form. - Follow up: Emergency Department; When: Call to arrange an appointment; Reason: Wound/Symptom Recheck, Recheck today's complaints, Worsening of conditions, Continuance of care. Follow up: Private Physician; When: Call to arrange an appointment; Reason: Wound/Symptom Recheck, Recheck today's complaints, Worsening of conditions, Continuance of care. - Problem is an acute exacerbation. - Symptoms have improved. - Notes: Call your surgeon for follow up and precription refill upon discharge. Historical: - Allergies: Strawberries; TETRACYCLINES; Theophylline; - Home Meds: 1. Abilify 15 mg Oral tab 1 tab once daily 2. albuterol sulfate 2.5 mg /3 mL (0.083 %) Inhl nebu 3 mL every 4 hours 3. Combivent 18-103 mcg/actuation Inhl aero 4 puffs twice a day 4. fluvoxamine 100 mg Oral tab 1 tab 2 times per day 5. gabapentin 100 mg Oral cap 1 caps 3 times per day 6. hydrochlorothiazide 25 mg Oral tab once daily 7. hydroxyzine HCl 50 mg Oral tab nightly 8. Klonopin 2 mg Oral tab 3 times per day 9. labetalol 100 mg Oral tab 1 tab 2 times per day 10. Vitamin D Oral 35965 unit daily 11. Zoloft 50 mg Oral tab 2 tabs once daily - PMHx: agorophobia; Anxiety; Asthma; COPD; Depression; Emphysema; Hypertension; OCD; - PSHx: Hysterectomy; Cholecystectomy; Knee surgery- Right; left hip surgery x3; - Social history: Smoking status: Patient uses tobacco products, heavy tobacco smoker. No barriers to communication noted, The patient speaks fluent Argentine, Speaks appropriately for age. - Family history: Not pertinent. - : The pt / caregiver states he / she is not on anticoagulants. Home medication list is obtained from the patient. - Exposure Risk Screening:: None identified. 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 3 in. (160.02 cm); Pain 10/10; 08:15 BP 172 / 94; Pulse 108; Resp 16; Pulse Ox 98% on R/A; jmk 09:44 BP 169 / 88; Pulse 88; Resp 16; Temp 96.8; Pulse Ox 98% on R/A; jmk 07:10 Body Mass Index 31.53 (80.74 kg, 160.02 cm) mlb1 MDM: 07:10 Undress patient appropriately for examination ordered. cc10 07:25 Dilaudid - HYDROmorphone 1 mg IM once ordered. cc10 07:25 Hip, (AP/Lat) Ordered. EDMS 07:43 Financial registration complete. lg 08:05 US Lower Extremity R/O DVT Ordered. EDMS 08:51 Hip, (AP/Lat) Reviewed. cc10 09:35 [facility] Payment Agreement was scanned into [employer] and attached to record. lg 12:51 T-Sheet-- Draft Copy was scanned into [employer] and attached to record. klr 12:59 ED course: trisha clarke faxed formal report of us extermity for fu mlg. ml Administered Medications: 07:30 Drug: Dilaudid - HYDROmorphone 1 mg [hydromorphone 1 mg/mL injection syringe (1 mL)] natan Route: IM; Site: left gluteus; Signatures: Dispatcher [employer] EDNJ Mirna Cramer MD MD ml Johnnie Perez,RN RN Casimiro Calvo, Reg Reg lg Ankit Steel RN RN mlb1 Rogerio Dominguez PA-C PA-Dawson cc10 Libby Evans The chart was reviewed and I authenticate all verbal orders and agree with the evaluation and treatment provided.Attachments: 09:35 [facility] Payment Agreement lg 12:51 T-Sheet-- Draft Copy jaswant MTDD
--- NOTE | 2016-11-03 14:09 | EDDOCDS ---
Physician Documentation [facility] Name: Maricel Yates Age: 46 yrs Sex: Female : 1970 Arrival Date: 10/26/2016 Time: 06:59 Bed I2 / M2 Private MD: Tomasa Clarke D Disposition: 10/26/16 09:39 Discharged to Home/Self Care. Impression: Pain in left hip - post-op. - Condition is Stable. - Discharge Instructions: Hip Pain. - Prescriptions for oxycodone 5 mg Oral Tablet - take 1 tablet by ORAL route every 4 hours As needed MDD: 6 tabs; 20 tablet. - Medication Reconciliation form. - Follow up: Emergency Department; When: Call to arrange an appointment; Reason: Wound/Symptom Recheck, Recheck today's complaints, Worsening of conditions, Continuance of care. Follow up: Private Physician; When: Call to arrange an appointment; Reason: Wound/Symptom Recheck, Recheck today's complaints, Worsening of conditions, Continuance of care. - Problem is an acute exacerbation. - Symptoms have improved. - Notes: Call your surgeon for follow up and precription refill upon discharge. Historical: - Allergies: Strawberries; TETRACYCLINES; Theophylline; - Home Meds: 1. Abilify 15 mg Oral tab 1 tab once daily 2. albuterol sulfate 2.5 mg /3 mL (0.083 %) Inhl nebu 3 mL every 4 hours 3. Combivent 18-103 mcg/actuation Inhl aero 4 puffs twice a day 4. fluvoxamine 100 mg Oral tab 1 tab 2 times per day 5. gabapentin 100 mg Oral cap 1 caps 3 times per day 6. hydrochlorothiazide 25 mg Oral tab once daily 7. hydroxyzine HCl 50 mg Oral tab nightly 8. Klonopin 2 mg Oral tab 3 times per day 9. labetalol 100 mg Oral tab 1 tab 2 times per day 10. Vitamin D Oral 24073 unit daily 11. Zoloft 50 mg Oral tab 2 tabs once daily - PMHx: agorophobia; Anxiety; Asthma; COPD; Depression; Emphysema; Hypertension; OCD; - PSHx: Hysterectomy; Cholecystectomy; Knee surgery- Right; left hip surgery x3; - Social history: Smoking status: Patient uses tobacco products, heavy tobacco smoker. No barriers to communication noted, The patient speaks fluent Hong Konger, Speaks appropriately for age. - Family history: Not pertinent. - : The pt / caregiver states he / she is not on anticoagulants. Home medication list is obtained from the patient. - Exposure Risk Screening:: None identified. 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 3 in. (160.02 cm); Pain 10/10; 08:15 BP 172 / 94; Pulse 108; Resp 16; Pulse Ox 98% on R/A; jmk 09:44 BP 169 / 88; Pulse 88; Resp 16; Temp 96.8; Pulse Ox 98% on R/A; jmk 07:10 Body Mass Index 31.53 (80.74 kg, 160.02 cm) mlb1 MDM: 07:10 Undress patient appropriately for examination ordered. cc10 07:25 Dilaudid - HYDROmorphone 1 mg IM once ordered. cc10 07:25 Hip, (AP/Lat) Ordered. EDMS 07:43 Financial registration complete. lg 08:05 US Lower Extremity R/O DVT Ordered. EDMS 08:51 Hip, (AP/Lat) Reviewed. cc10 09:35 [facility] Payment Agreement was scanned into [employer] and attached to record. lg 12:51 T-Sheet-- Draft Copy was scanned into [employer] and attached to record. klr 12:59 ED course: trisha clarke faxed formal report of us extermity for fu mlg. ml Administered Medications: 07:30 Drug: Dilaudid - HYDROmorphone 1 mg [hydromorphone 1 mg/mL injection syringe (1 mL)] natan Route: IM; Site: left gluteus; Signatures: Dispatcher [employer] EDAL Mirna Cramer MD MD ml Johnnie Perez,RN RN Casimiro Calvo, Reg Reg lg Ankit Steel RN RN mlb1 Rogerio Dominguez PA-C PA-Dawson cc10 Libby Evans The chart was reviewed and I authenticate all verbal orders and agree with the evaluation and treatment provided.Attachments: 09:35 [facility] Payment Agreement lg 12:51 T-Sheet-- Draft Copy jaswant Chart Complete MTDD
--- NOTE | 2016-11-03 14:09 | EDDOCDS ---
Nurse's Notes [facility] Name: Maricel Yates Age: 46 yrs Sex: Female : 1970 Arrival Date: 10/26/2016 Time: 06:59 Bed I2 / M2 Private MD: Tomasa Chapa D Diagnosis: Pain in left hip-post-op Presentation: 10/26 07:06 Presenting complaint: Patient states: Total left hip replacement 9 days ago, increased mlb1 pain since therapy last evening "I was on Oxy and I'm out I need to be admitted or something for pain". Adult Sepsis Screening: The patient does not have new or worsening altered mentation. Patient's respiratory rate is less than 22. Systolic blood pressure is greater than 100. Patient has a qSOFA score of 0- Negative Sepsis Screen. Suicide/Homicide risk assessment- the patient denies having any suicidal and/or homicidal ideations and does not present with any other emotional, behavioral or mental health complaints. Status: Patient is not a service superintendent or dependent. Transition of care: patient was not received from another setting of care. 07:06 Acuity: NICO Level 4 mlb1 07:06 Method Of Arrival: Walkin/Carried/Asstd mlb1 Triage Assessment: 07:10 General: Appears distressed, Behavior is cooperative. Pain: Location: left hip Pain mlb1 currently is 10 out of 10 on a pain scale. HIV screening NA for this visit Offered previously. 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 Abilify 15 mg Oral tab 1 tab once daily 2. albuterol sulfate 2.5 mg /3 mL (0.083 %) Inhl nebu 3 mL every 4 hours 3. Combivent 18-103 mcg/actuation Inhl aero 4 puffs twice a day 4. fluvoxamine 100 mg Oral tab 1 tab 2 times per day 5. gabapentin 100 mg Oral cap 1 caps 3 times per day 6. hydrochlorothiazide 25 mg Oral tab once daily 7. hydroxyzine HCl 50 mg Oral tab nightly 8. Klonopin 2 mg Oral tab 3 times per day 9. labetalol 100 mg Oral tab 1 tab 2 times per day 10. Vitamin D Oral 22842 unit daily 11. Zoloft 50 mg Oral tab 2 tabs once daily - PMHx: agorophobia; Anxiety; Asthma; COPD; Depression; Emphysema; Hypertension; OCD; - PSHx: Hysterectomy; Cholecystectomy; Knee surgery- Right; left hip surgery x3; - Social history: Smoking status: Patient uses tobacco products, heavy tobacco smoker. No barriers to communication noted, The patient speaks fluent Uzbek, Speaks appropriately for age. - Family history: Not pertinent. - : The pt / caregiver states he / she is not on anticoagulants. Home medication list is obtained from the patient. - Exposure Risk Screening:: None identified. Screenin:23 Screening information is obtained from the patient. Fall risk: No risks identified. [facility] Assistance ADL's: requires no assistance with activities of daily living. Abuse/DV Screen: The patient / caregiver reports he/she is: not in a situation that causes fear, pain or injury. Nutritional screening: No deficits noted. Advance Directives: Currently, there is no health care proxy. There is no active DNR order. There is no living will. There is no Power of Bagging Machine Operator. home support is adequate. Assessment: 07:21 General: Appears skin warm and dry color satisfactory. moist pink oral mucosa. teary. k indicates last dose of narcotic this am without effect. reports one attempt to contact surgeon without success. surgical incision is unremarkable. cal intact and edges approximated without increased warmth, redness or drainage.. 08:13 General: Appears x rays completed. initially reports no change in pain, but later in k conversation reports pain has decreased to 8/10 from 10/10. heat applied for comofort.. 09:44 General: Appears reports pain has decreased to 6/10 and is now receptive to discharge.. [facility] Vital Signs: 07:10 BP 169 / 94; Pulse 110; Resp 18; Temp 98.4(TE); Pulse Ox 95% on R/A; Weight 80.74 kg mlb1 (R); Height 5 ft. 3 in. (160.02 cm); Pain 10/10; 08:15 BP 172 / 94; Pulse 108; Resp 16; Pulse Ox 98% on R/A; jmk 09:44 BP 169 / 88; Pulse 88; Resp 16; Temp 96.8; Pulse Ox 98% on R/A; k 07:10 Body Mass Index 31.53 (80.74 kg, 160.02 cm) [facility] Vitals: 07:10 Log In Time: October 26, 2016 at 06:59. mlb1 ED Course: 07:01 Patient visited by Bassem Watson Reg. pm4 07:01 Tomasa Chapa is Private Physician. pm4 07:01 Patient moved to Waiting pm4 07:06 Patient visited by Ankit Steel RN. mlb1 07:07 Triage Initiated mlb1 07:11 Patient visited by Ankit Steel RN. mlb1 07:12 Rogerio Dominguez PA-C is PHCP. cc10 07:12 Philip Macedo MD is Attending Physician. cc10 07:12 Patient moved to I2 / M2 cc10 07:17 Patient visited by Rogerio Dominguez PA-C. cc10 07:17 Patient visited by Rogerio Dominguez PA-C. cc10 07:23 The patient / caregiver is instructed regarding the plan of care and ED course. jmk 08:16 Patient visited by Johnnie Perez RN. jmk 08:17 Patient moved to Ultrasound eg2 08:18 Hip, (AP/Lat) Returned. EDMS 08:38 Patient moved to I2 / M2 jmk 09:32 US Lower Extremity R/O DVT Returned. EDMS 09:35 [facility] Payment Agreement was scanned into [employer] and attached to record. lg 09:44 No IV's were initiated during this patient's visit. No procedures done that require k assistance. 12:51 T-Sheet-- Draft Copy was scanned into [employer] and attached to record. klr Administered Medications: 07:30 Drug: Dilaudid - HYDROmorphone 1 mg [hydromorphone 1 mg/mL injection syringe (1 mL)] [facility] Route: IM; Site: left gluteus; Order Results: Radiology Order: Hip, (AP/Lat) Test: Hip, (AP/Lat) REASON FOR EXAMINATION: post-op; Clinical: Status post arthroplasty.; ; Technique: AP and cross-table lateral views.; ; Findings: The patient is status post left hip replacement with normal; positioning and appearance to the femoral and acetabular components. There is; evidence for prior fixation involving the left ischium and pubic rami due to; trauma. Free fracture fragments/dystrophic calcifications are identified; superior to the [place] proximal femur. AP view demonstrates a screw extending at; the 12 o'clock position with its tip through bone into the adjacent soft tissue.; ; ; Impression:; Status post left hip replacement as described above.; ; ; Signed by; Garth Smiley MD 10/26/2016 08:06 A; Radiology Order: US Lower Extremity R/O DVT Test: US Lower Extremity R/O DVT REASON FOR EXAMINATION: r/o DVT; Left lower extremity Duplex Doppler venous ultrasound:; ; Real time compression and duplex Doppler interrogation of the left lower; extremity deep venous system is performed. The left common femoral, superficial; femoral and popliteal veins are fully compressible with transducer pressure and; demonstrate normal spontaneous and phasic flow, without evidence of deep venous; thrombosis.; ; Impression:; ; No evidence of deep venous thrombosis of the left lower extremity femoral; popliteal venous system. Incidental note is made of left inguinal lymph nodes,; the largest measuring 2.0 x 2.3 x 0.6 cm.; ; ; Signed by; Antwon Carranza MD 10/26/2016 08:53 A; Outcome: 09:39 Discharge ordered by Provider. cc10 09:44 Discharge Assessment: Patient awake, alert and oriented x 3. No cognitive and/or k functional deficits noted. Patient verbalized understanding of disposition instructions. patient administered narcotics - yes. The following High Risk Discharge criteria are identified: None. Discharged to home with crutches. Condition: good. Discharge instructions given to patient. Ultrasound Study completed. Property :Personal belongings accompany Pt. 09:48 Patient left the ED. natan Addendum: 11/03/2016 14:06 Narrative: patient called back after receiving certified letter - given results of U/S kcs and instructed to f/u with PMD. Signatures: Dispatcher [employer] EDMS Sandra Weems RN Johnnie Jaramillo RN RN jmk Ganter, LoriLee, Reg Reg lg Ankit Steel RN RN mlb1 Yvrose Arroyo eg2 Rogerio Dominguez, PA-C PA-C cc10 Libby Evans Paul, Reg Reg pm4 Chart Complete MTDD
--- NOTE | 2016-11-03 14:09 | EDDOCDS ---
Physician Documentation [facility] Name: Maricel Yates Age: 46 yrs Sex: Female : 1970 Arrival Date: 10/26/2016 Time: 06:59 Bed I2 / M2 Private MD: Tomasa Clarke D Disposition: 10/26/16 09:39 Discharged to Home/Self Care. Impression: Pain in left hip - post-op. - Condition is Stable. - Discharge Instructions: Hip Pain. - Prescriptions for oxycodone 5 mg Oral Tablet - take 1 tablet by ORAL route every 4 hours As needed MDD: 6 tabs; 20 tablet. - Medication Reconciliation form. - Follow up: Emergency Department; When: Call to arrange an appointment; Reason: Wound/Symptom Recheck, Recheck today's complaints, Worsening of conditions, Continuance of care. Follow up: Private Physician; When: Call to arrange an appointment; Reason: Wound/Symptom Recheck, Recheck today's complaints, Worsening of conditions, Continuance of care. - Problem is an acute exacerbation. - Symptoms have improved. - Notes: Call your surgeon for follow up and precription refill upon discharge. Historical: - Allergies: Strawberries; TETRACYCLINES; Theophylline; - Home Meds: 1. Abilify 15 mg Oral tab 1 tab once daily 2. albuterol sulfate 2.5 mg /3 mL (0.083 %) Inhl nebu 3 mL every 4 hours 3. Combivent 18-103 mcg/actuation Inhl aero 4 puffs twice a day 4. fluvoxamine 100 mg Oral tab 1 tab 2 times per day 5. gabapentin 100 mg Oral cap 1 caps 3 times per day 6. hydrochlorothiazide 25 mg Oral tab once daily 7. hydroxyzine HCl 50 mg Oral tab nightly 8. Klonopin 2 mg Oral tab 3 times per day 9. labetalol 100 mg Oral tab 1 tab 2 times per day 10. Vitamin D Oral 60464 unit daily 11. Zoloft 50 mg Oral tab 2 tabs once daily - PMHx: agorophobia; Anxiety; Asthma; COPD; Depression; Emphysema; Hypertension; OCD; - PSHx: Hysterectomy; Cholecystectomy; Knee surgery- Right; left hip surgery x3; - Social history: Smoking status: Patient uses tobacco products, heavy tobacco smoker. No barriers to communication noted, The patient speaks fluent Tristanian, Speaks appropriately for age. - Family history: Not pertinent. - : The pt / caregiver states he / she is not on anticoagulants. Home medication list is obtained from the patient. - Exposure Risk Screening:: None identified. 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 3 in. (160.02 cm); Pain 10/10; 08:15 BP 172 / 94; Pulse 108; Resp 16; Pulse Ox 98% on R/A; jmk 09:44 BP 169 / 88; Pulse 88; Resp 16; Temp 96.8; Pulse Ox 98% on R/A; jmk 07:10 Body Mass Index 31.53 (80.74 kg, 160.02 cm) mlb1 MDM: 07:10 Undress patient appropriately for examination ordered. cc10 07:25 Dilaudid - HYDROmorphone 1 mg IM once ordered. cc10 07:25 Hip, (AP/Lat) Ordered. EDMS 07:43 Financial registration complete. lg 08:05 US Lower Extremity R/O DVT Ordered. EDMS 08:51 Hip, (AP/Lat) Reviewed. cc10 09:35 [facility] Payment Agreement was scanned into [employer] and attached to record. lg 12:51 T-Sheet-- Draft Copy was scanned into [employer] and attached to record. klr 12:59 ED course: trisha clarke faxed formal report of us extermity for fu mlg. ml Administered Medications: 07:30 Drug: Dilaudid - HYDROmorphone 1 mg [hydromorphone 1 mg/mL injection syringe (1 mL)] natan Route: IM; Site: left gluteus; Signatures: Dispatcher [employer] EDTX Mirna Cramer MD MD ml Johnnie Perez,RN RN Casimiro Calvo, Reg Reg lg Ankit Steel RN RN mlb1 Rogerio Dominguez PA-C PA-Dawson cc10 Libby Evans The chart was reviewed and I authenticate all verbal orders and agree with the evaluation and treatment provided.Attachments: 09:35 [facility] Payment Agreement lg 12:51 T-Sheet-- Draft Copy jaswant Chart Complete MTDD
--- NOTE | 2016-11-03 14:10 | EDDOCDS ---
Physician Documentation [facility] Name: Maricel Yates Age: 46 yrs Sex: Female : 1970 Arrival Date: 10/26/2016 Time: 06:59 Bed I2 / M2 Private MD: Tomasa Clarke D Disposition: 10/26/16 09:39 Discharged to Home/Self Care. Impression: Pain in left hip - post-op. - Condition is Stable. - Discharge Instructions: Hip Pain. - Prescriptions for oxycodone 5 mg Oral Tablet - take 1 tablet by ORAL route every 4 hours As needed MDD: 6 tabs; 20 tablet. - Medication Reconciliation form. - Follow up: Emergency Department; When: Call to arrange an appointment; Reason: Wound/Symptom Recheck, Recheck today's complaints, Worsening of conditions, Continuance of care. Follow up: Private Physician; When: Call to arrange an appointment; Reason: Wound/Symptom Recheck, Recheck today's complaints, Worsening of conditions, Continuance of care. - Problem is an acute exacerbation. - Symptoms have improved. - Notes: Call your surgeon for follow up and precription refill upon discharge. Historical: - Allergies: Strawberries; TETRACYCLINES; Theophylline; - Home Meds: 1. Abilify 15 mg Oral tab 1 tab once daily 2. albuterol sulfate 2.5 mg /3 mL (0.083 %) Inhl nebu 3 mL every 4 hours 3. Combivent 18-103 mcg/actuation Inhl aero 4 puffs twice a day 4. fluvoxamine 100 mg Oral tab 1 tab 2 times per day 5. gabapentin 100 mg Oral cap 1 caps 3 times per day 6. hydrochlorothiazide 25 mg Oral tab once daily 7. hydroxyzine HCl 50 mg Oral tab nightly 8. Klonopin 2 mg Oral tab 3 times per day 9. labetalol 100 mg Oral tab 1 tab 2 times per day 10. Vitamin D Oral 53401 unit daily 11. Zoloft 50 mg Oral tab 2 tabs once daily - PMHx: agorophobia; Anxiety; Asthma; COPD; Depression; Emphysema; Hypertension; OCD; - PSHx: Hysterectomy; Cholecystectomy; Knee surgery- Right; left hip surgery x3; - Social history: Smoking status: Patient uses tobacco products, heavy tobacco smoker. No barriers to communication noted, The patient speaks fluent Equ[place] Guinean, Speaks appropriately for age. - Family history: Not pertinent. - : The pt / caregiver states he / she is not on anticoagulants. Home medication list is obtained from the patient. - Exposure Risk Screening:: None identified. 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 3 in. (160.02 cm); Pain 10/10; 08:15 BP 172 / 94; Pulse 108; Resp 16; Pulse Ox 98% on R/A; jmk 09:44 BP 169 / 88; Pulse 88; Resp 16; Temp 96.8; Pulse Ox 98% on R/A; jmk 07:10 Body Mass Index 31.53 (80.74 kg, 160.02 cm) mlb1 MDM: 07:10 Undress patient appropriately for examination ordered. cc10 07:25 Dilaudid - HYDROmorphone 1 mg IM once ordered. cc10 07:25 Hip, (AP/Lat) Ordered. EDMS 07:43 Financial registration complete. lg 08:05 US Lower Extremity R/O DVT Ordered. EDMS 08:51 Hip, (AP/Lat) Reviewed. cc10 09:35 [facility] Payment Agreement was scanned into [employer] and attached to record. lg 12:51 T-Sheet-- Draft Copy was scanned into [employer] and attached to record. klr 12:59 ED course: trisha clarke faxed formal report of us extermity for fu mlg. ml Administered Medications: 07:30 Drug: Dilaudid - HYDROmorphone 1 mg [hydromorphone 1 mg/mL injection syringe (1 mL)] natan Route: IM; Site: left gluteus; Signatures: Dispatcher [employer] EDMI Mirna Cramer MD MD ml Johnnie Perez,RN RN Casimiro Calvo, Reg Reg lg Ankit Steel RN RN mlb1 Rogerio Dominguez PA-C PA-Dawson cc10 Libby Evans The chart was reviewed and I authenticate all verbal orders and agree with the evaluation and treatment provided.Attachments: 09:35 [facility] Payment Agreement lg 12:51 T-Sheet-- Draft Copy jaswant Chart Complete MTDD
--- NOTE | 2016-11-03 14:10 | EDDOCDS ---
Nurse's Notes [facility] Name: Maricel Yates Age: 46 yrs Sex: Female : 1970 Arrival Date: 10/26/2016 Time: 06:59 Bed I2 / M2 Private MD: Tomasa Chapa D Diagnosis: Pain in left hip-post-op Presentation: 10/26 07:06 Presenting complaint: Patient states: Total left hip replacement 9 days ago, increased mlb1 pain since therapy last evening "I was on Oxy and I'm out I need to be admitted or something for pain". Adult Sepsis Screening: The patient does not have new or worsening altered mentation. Patient's respiratory rate is less than 22. Systolic blood pressure is greater than 100. Patient has a qSOFA score of 0- Negative Sepsis Screen. Suicide/Homicide risk assessment- the patient denies having any suicidal and/or homicidal ideations and does not present with any other emotional, behavioral or mental health complaints. 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 Transition of care: patient was not received from another setting of care. 07:06 Acuity: NICO Level 4 mlb1 07:06 Method Of Arrival: Walkin/Carried/Asstd mlb1 Triage Assessment: 07:10 General: Appears distressed, Behavior is cooperative. Pain: Location: left hip Pain mlb1 currently is 10 out of 10 on a pain scale. HIV screening NA for this visit Offered previously. 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 Abilify 15 mg Oral tab 1 tab once daily 2. albuterol sulfate 2.5 mg /3 mL (0.083 %) Inhl nebu 3 mL every 4 hours 3. Combivent 18-103 mcg/actuation Inhl aero 4 puffs twice a day 4. fluvoxamine 100 mg Oral tab 1 tab 2 times per day 5. gabapentin 100 mg Oral cap 1 caps 3 times per day 6. hydrochlorothiazide 25 mg Oral tab once daily 7. hydroxyzine HCl 50 mg Oral tab nightly 8. Klonopin 2 mg Oral tab 3 times per day 9. labetalol 100 mg Oral tab 1 tab 2 times per day 10. Vitamin D Oral 35908 unit daily 11. Zoloft 50 mg Oral tab 2 tabs once daily - PMHx: agorophobia; Anxiety; Asthma; COPD; Depression; Emphysema; Hypertension; OCD; - PSHx: Hysterectomy; Cholecystectomy; Knee surgery- Right; left hip surgery x3; - Social history: Smoking status: Patient uses tobacco products, heavy tobacco smoker. No barriers to communication noted, The patient speaks fluent Panamanian, Speaks appropriately for age. - Family history: Not pertinent. - : The pt / caregiver states he / she is not on anticoagulants. Home medication list is obtained from the patient. - Exposure Risk Screening:: None identified. Screenin:23 Screening information is obtained from the patient. Fall risk: No risks identified. [facility] Assistance ADL's: requires no assistance with activities of daily living. Abuse/DV Screen: The patient / caregiver reports he/she is: not in a situation that causes fear, pain or injury. Nutritional screening: No deficits noted. Advance Directives: Currently, there is no health care proxy. There is no active DNR order. There is no living will. There is no Power of Ripening Room Hand. home support is adequate. Assessment: 07:21 General: Appears skin warm and dry color satisfactory. moist pink oral mucosa. teary. k indicates last dose of narcotic this am without effect. reports one attempt to contact surgeon without success. surgical incision is unremarkable. cal intact and edges approximated without increased warmth, redness or drainage.. 08:13 General: Appears x rays completed. initially reports no change in pain, but later in k conversation reports pain has decreased to 8/10 from 10/10. heat applied for comofort.. 09:44 General: Appears reports pain has decreased to 6/10 and is now receptive to discharge.. [facility] Vital Signs: 07:10 BP 169 / 94; Pulse 110; Resp 18; Temp 98.4(TE); Pulse Ox 95% on R/A; Weight 80.74 kg mlb1 (R); Height 5 ft. 3 in. (160.02 cm); Pain 10/10; 08:15 BP 172 / 94; Pulse 108; Resp 16; Pulse Ox 98% on R/A; jmk 09:44 BP 169 / 88; Pulse 88; Resp 16; Temp 96.8; Pulse Ox 98% on R/A; k 07:10 Body Mass Index 31.53 (80.74 kg, 160.02 cm) [facility] Vitals: 07:10 Log In Time: October 26, 2016 at 06:59. mlb1 ED Course: 07:01 Patient visited by Bassem Watson Reg. pm4 07:01 Tomasa Chapa is Private Physician. pm4 07:01 Patient moved to Waiting pm4 07:06 Patient visited by Ankit Steel RN. mlb1 07:07 Triage Initiated mlb1 07:11 Patient visited by Ankit Steel RN. mlb1 07:12 Rogerio Dominguez PA-C is PHCP. cc10 07:12 Philip Macedo MD is Attending Physician. cc10 07:12 Patient moved to I2 / M2 cc10 07:17 Patient visited by Rogerio Dominguez PA-C. cc10 07:17 Patient visited by Rogerio Dominguez PA-C. cc10 07:23 The patient / caregiver is instructed regarding the plan of care and ED course. jmk 08:16 Patient visited by Johnnie Perez RN. jmk 08:17 Patient moved to Ultrasound eg2 08:18 Hip, (AP/Lat) Returned. EDMS 08:38 Patient moved to I2 / M2 jmk 09:32 US Lower Extremity R/O DVT Returned. EDMS 09:35 [facility] Payment Agreement was scanned into [employer] and attached to record. lg 09:44 No IV's were initiated during this patient's visit. No procedures done that require k assistance. 12:51 T-Sheet-- Draft Copy was scanned into [employer] and attached to record. klr Administered Medications: 07:30 Drug: Dilaudid - HYDROmorphone 1 mg [hydromorphone 1 mg/mL injection syringe (1 mL)] [facility] Route: IM; Site: left gluteus; Order Results: Radiology Order: Hip, (AP/Lat) Test: Hip, (AP/Lat) REASON FOR EXAMINATION: post-op; Clinical: Status post arthroplasty.; ; Technique: AP and cross-table lateral views.; ; Findings: The patient is status post left hip replacement with normal; positioning and appearance to the femoral and acetabular components. There is; evidence for prior fixation involving the left ischium and pubic rami due to; trauma. Free fracture fragments/dystrophic calcifications are identified; superior to the [place] proximal femur. AP view demonstrates a screw extending at; the 12 o'clock position with its tip through bone into the adjacent soft tissue.; ; ; Impression:; Status post left hip replacement as described above.; ; ; Signed by; Garth Smiley MD 10/26/2016 08:06 A; Radiology Order: US Lower Extremity R/O DVT Test: US Lower Extremity R/O DVT REASON FOR EXAMINATION: r/o DVT; Left lower extremity Duplex Doppler venous ultrasound:; ; Real time compression and duplex Doppler interrogation of the left lower; extremity deep venous system is performed. The left common femoral, superficial; femoral and popliteal veins are fully compressible with transducer pressure and; demonstrate normal spontaneous and phasic flow, without evidence of deep venous; thrombosis.; ; Impression:; ; No evidence of deep venous thrombosis of the left lower extremity femoral; popliteal venous system. Incidental note is made of left inguinal lymph nodes,; the largest measuring 2.0 x 2.3 x 0.6 cm.; ; ; Signed by; Antwon Carranza MD 10/26/2016 08:53 A; Outcome: 09:39 Discharge ordered by Provider. cc10 09:44 Discharge Assessment: Patient awake, alert and oriented x 3. No cognitive and/or k functional deficits noted. Patient verbalized understanding of disposition instructions. patient administered narcotics - yes. The following High Risk Discharge criteria are identified: None. Discharged to home with crutches. Condition: good. Discharge instructions given to patient. Ultrasound Study completed. Property :Personal belongings accompany Pt. 09:48 Patient left the ED. natan Addendum: 11/03/2016 14:06 Narrative: patient called back after receiving certified letter - given results of U/S kcs and instructed to f/u with PMD. Signatures: Dispatcher [employer] EDMS Sandra Weems RN Johnnie Jaramillo RN RN jmk Ganter, LoriLee, Reg Reg lg Ankit Steel RN RN mlb1 Yvrose Arroyo eg2 Rogerio Dominguez, PA-C PA-C cc10 Libby Evans Paul, Reg Reg pm4 Chart Complete MTDD
--- NOTE | 2016-11-03 14:10 | EDDOCDS ---
Physician Documentation [facility] Name: Maricel Yates Age: 46 yrs Sex: Female : 1970 Arrival Date: 10/26/2016 Time: 06:59 Bed I2 / M2 Private MD: Tomasa Clarke D Disposition: 10/26/16 09:39 Discharged to Home/Self Care. Impression: Pain in left hip - post-op. - Condition is Stable. - Discharge Instructions: Hip Pain. - Prescriptions for oxycodone 5 mg Oral Tablet - take 1 tablet by ORAL route every 4 hours As needed MDD: 6 tabs; 20 tablet. - Medication Reconciliation form. - Follow up: Emergency Department; When: Call to arrange an appointment; Reason: Wound/Symptom Recheck, Recheck today's complaints, Worsening of conditions, Continuance of care. Follow up: Private Physician; When: Call to arrange an appointment; Reason: Wound/Symptom Recheck, Recheck today's complaints, Worsening of conditions, Continuance of care. - Problem is an acute exacerbation. - Symptoms have improved. - Notes: Call your surgeon for follow up and precription refill upon discharge. Historical: - Allergies: Strawberries; TETRACYCLINES; Theophylline; - Home Meds: 1. Abilify 15 mg Oral tab 1 tab once daily 2. albuterol sulfate 2.5 mg /3 mL (0.083 %) Inhl nebu 3 mL every 4 hours 3. Combivent 18-103 mcg/actuation Inhl aero 4 puffs twice a day 4. fluvoxamine 100 mg Oral tab 1 tab 2 times per day 5. gabapentin 100 mg Oral cap 1 caps 3 times per day 6. hydrochlorothiazide 25 mg Oral tab once daily 7. hydroxyzine HCl 50 mg Oral tab nightly 8. Klonopin 2 mg Oral tab 3 times per day 9. labetalol 100 mg Oral tab 1 tab 2 times per day 10. Vitamin D Oral 17040 unit daily 11. Zoloft 50 mg Oral tab 2 tabs once daily - PMHx: agorophobia; Anxiety; Asthma; COPD; Depression; Emphysema; Hypertension; OCD; - PSHx: Hysterectomy; Cholecystectomy; Knee surgery- Right; left hip surgery x3; - Social history: Smoking status: Patient uses tobacco products, heavy tobacco smoker. No barriers to communication noted, The patient speaks fluent [place], Speaks appropriately for age. - Family history: Not pertinent. - : The pt / caregiver states he / she is not on anticoagulants. Home medication list is obtained from the patient. - Exposure Risk Screening:: None identified. PECAN HULLER: 10/26 07:10 LMP N/A - Hysterectomy mlb1 Vital Signs: 07:10 BP 169 / 94; Pulse 110; Resp 18; Temp 98.4(TE); Pulse Ox 95% on R/A; Weight 80.74 kg / mlb1 178 lbs (R); Height 5 ft. 3 in. (160.02 cm); Pain 10/10; 08:15 BP 172 / 94; Pulse 108; Resp 16; Pulse Ox 98% on R/A; jmk 09:44 BP 169 / 88; Pulse 88; Resp 16; Temp 96.8; Pulse Ox 98% on R/A; jmk 07:10 Body Mass Index 31.53 (80.74 kg, 160.02 cm) mlb1 MDM: 07:10 Undress patient appropriately for examination ordered. cc10 07:25 Dilaudid - HYDROmorphone 1 mg IM once ordered. cc10 07:25 Hip, (AP/Lat) Ordered. EDMS 07:43 Financial registration complete. lg 08:05 US Lower Extremity R/O DVT Ordered. EDMS 08:51 Hip, (AP/Lat) Reviewed. cc10 09:35 [facility] Payment Agreement was scanned into [employer] and attached to record. lg 12:51 T-Sheet-- Draft Copy was scanned into [employer] and attached to record. klr 12:59 ED course: trisha clarke faxed formal report of us extermity for fu mlg. ml Administered Medications: 07:30 Drug: Dilaudid - HYDROmorphone 1 mg [hydromorphone 1 mg/mL injection syringe (1 mL)] natan Route: IM; Site: left gluteus; Signatures: Dispatcher [employer] EDRI Mirna Cramer MD MD ml Johnnie Perez,RN RN Casimiro Calvo, Reg Reg lg Ankit Steel RN RN mlb1 Rogerio Dominguez PA-C PA-Dawson cc10 Libby Evans The chart was reviewed and I authenticate all verbal orders and agree with the evaluation and treatment provided.Attachments: 09:35 [facility] Payment Agreement lg 12:51 T-Sheet-- Draft Copy jaswant Chart Complete MTDD
== END 2016-10-26 09:48 | disposition home or self-care (01) ==
LOC: M ED 06:59
DX: G89.18 Other acute postprocedural pain (principal); M25.552 Pain in left hip; F41.9 Anxiety disorder, unspecified; J45.909 Unspecified asthma, uncomplicated; J44.9 Chronic obstructive pulmonary disease, unspecified; F32.9 Major depressive disorder, single episode, unspecified; I10 Essential (primary) hypertension; F42.9 Obsessive-compulsive disorder, unspecified; F40.00 Agoraphobia, unspecified; Z72.0 Tobacco use; Z79.899 Other long term (current) drug therapy; Z91.018 Allergy to other foods; Z88.1 Allergy status to other antibiotic agents; Z88.8 Allergy status to other drugs, medicaments and biological substances
CPT/HCPCS: 73502; 93971; 96372; 99284; J1170

== ENCOUNTER 2016-10-29 18:13 | Emergency (ER) | payer MEDICARE ==
[2016-10-29] MEDS ORDERED: MORPHINE 4 MG/ML 1ML SYRINGE As Ordered ONE ×2 (19:41→20:42)
[2016-10-29] MEDS ORDERED: ONDANSETRON 4MG/2ML VIAL (J2405) As Ordered ONE (19:41)
--- NOTE | 2016-10-29 20:38 | REP ---
Clinical: Trauma. Technique: AP and frog lateral views of the left hip. Comparison: 10/26/2016. Findings: Status post hip replacement and underlying pelvic fracture repair. Orthopedic hardware, osseous structures, and dystrophic calcifications in the adjacent soft tissue appears stable. Impression: Stable examination compared to 10/26/2016. Signed by Garth Smiley MD 10/29/2016 08:29 P
--- NOTE | 2016-10-29 22:19 | EDDOCDS ---
Nurse's Notes [facility] Name: Maricel Yates Age: 46 yrs Sex: Female : 1970 Arrival Date: 10/29/2016 Time: 18:13 Bed 12 Private MD: Tomasa Chapa D Diagnosis: Pain in left hip Presentation: 10/29 18:18 Presenting complaint: Patient states: felt a pop while sat up in bed to left hip. right srm hip replacement 2 weeks ago. Adult Sepsis Screening: The patient does not have new or worsening altered mentation. Patient's respiratory rate is less than 22. Systolic blood pressure is greater than 100. Patient has a qSOFA score of 0- Negative Sepsis Screen. Suicide/Homicide risk assessment- the patient denies having any suicidal and/or homicidal ideations and does not present with any other emotional, behavioral or mental health complaints. 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 Transition of care: patient was not received from another setting of care. 18:18 Acuity: NICO Level 4 srm 18:18 Method Of Arrival: Wheelchair srm 19:01 Acuity level changed due to complexity of care. srm 19:01 Acuity: NICO Level 3 srm Triage Assessment: 18:22 General: Appears uncomfortable, Behavior is appropriate for age, cooperative. Pain: srm Pain currently is 8 out of 10 on a pain scale. HIV screening NA for this visit Offered previously. 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 Abilify 15 mg Oral tab 1 tab once daily 2. albuterol sulfate 2.5 mg /3 mL (0.083 %) Inhl nebu 3 mL every 4 hours 3. Combivent 18-103 mcg/actuation Inhl aero 4 puffs twice a day 4. gabapentin 100 mg Oral cap 1 caps 3 times per day 5. fluvoxamine 100 mg Oral tab 1 tab 2 times per day 6. hydrochlorothiazide 25 mg Oral tab once daily 7. hydroxyzine HCl 50 mg Oral tab nightly 8. Klonopin 2 mg Oral tab 3 times per day 9. labetalol 100 mg Oral tab 1 tab 2 times per day 10. Zoloft 50 mg Oral tab 1 tab once daily 11. OxyContin 5 mg Oral 2 tabs q4 hrs prn MDD 8/24 hr 1pill at 530 (Last dose: 10/29/2016 17:30) - PMHx: agorophobia; Anxiety; Asthma; COPD; Depression; Emphysema; Hypertension; OCD; - PSHx: Hysterectomy; Cholecystectomy; Knee surgery- Right; left hip surgery x3; - Social history: Smoking status: Patient uses tobacco products, current every day smoker. No barriers to communication noted, The patient speaks fluent Tajik, Speaks appropriately for age. - Family history: Not pertinent. - : The pt / caregiver states he / she is not on anticoagulants. Home medication list is obtained from the patient. - Exposure Risk Screening:: None identified. Screenin:08 Screening information is obtained from the patient. Fall risk: At risk due to injury. mlc Assistance ADL's: requires no assistance with activities of daily living. Abuse/DV Screen: The patient / caregiver reports he/she is: not in a situation that causes fear, pain or injury. Nutritional screening: No deficits noted. Advance Directives: Currently, there is no health care proxy. There is no Power of Special Services Agent. home support is adequate. Assessment: 19:06 General: Appears uncomfortable, Behavior is appropriate for age, cooperative, pedal srm pulses palpable to left foot. left leg slightly swollen. cal to left hip[ surgical site clean without redness or drainage. . moves toes well. 19:08 General: Appears uncomfortable, Behavior is cooperative. Pain: Location: left hip Pain mlc currently is 10 out of 10 on a pain scale. Neurological: Level of Consciousness is awake, alert, obeys commands, Oriented to person, place, time. Cardiovascular: Capillary refill < 3 seconds in bilateral toes Pulses are all present. Respiratory: Airway is patent Respiratory effort is even, unlabored, Respiratory pattern is regular. Derm: Skin 31 cal counted to left hip, incision well approximated, no drainage noted. Skin is normal. 19:53 Reassessment: Patient states symptoms have not improved. pt medicated per order. mlc 20:41 Reassessment: Patient appears in no apparent distress at this time. pain decreased to mlc 6/10. 20:47 Reassessment: pt medicated per order. mlc 21:07 General: pt able to ambulate to bathroom with staff using crutches. . mlc 21:26 Reassessment: Patient appears in no apparent distress at this time. Patient states mlc feeling better. Patient states symptoms have improved. pain decreased to 2/10. pt sitting at bedside. resp easy/unlabored. . 22:17 General: Appears in no apparent distress, comfortable, Behavior is cooperative. Pain: mlc Pain currently is 2 out of 10 on a pain scale. 22:17 Neurological: Level of Consciousness is awake, alert, Oriented to person, place, time. mlc Respiratory: Airway is patent Respiratory effort is even, unlabored, Respiratory pattern is regular. Vital Signs: 18:15 BP 198 / 106; Pulse 109; Resp 18 S; Temp 99.6(O); Pulse Ox 100% on R/A; Weight 85.73 kg gr2 (R); Height 5 ft. 3 in. (160.02 cm) (R); Pain 8/10; 18:41 Pulse 68 MON; mlc 19:47 BP 178 / 85 (auto/); mlc 19:50 Pulse Ox 96% ; mlc 20:40 BP 181 / 88; Pulse 104; Pulse Ox 96% ; Pain 6/10; mlc 21:25 Pain 2/10; mlc 22:17 BP 183 / 88; Pulse 109; Resp 20; Temp 98.3; Pulse Ox 96% ; Pain 2/10; mlc 18:15 Body Mass Index 33.48 (85.73 kg, 160.02 cm) 2 Vitals: 18:15 Log In Time: October 29, 2016 at 18:15. gr2 ED Course: 18:15 Patient visited by Henry Suarez. gr2 18:15 Tomasa Chapa is Private Physician. gr2 18:15 Patient moved to Waiting gr2 18:17 Patient visited by Henry Suarez. gr2 18:18 Patient moved to Pre RCE gr2 18:19 Triage Initiated srm 19:01 Greg Patel, RN is Primary Nurse. srm 19:01 Kathleen Obrien,TATIANA is Primary Nurse. srm 19:01 Patient moved to 12 srm 19:06 The patient / caregiver is instructed regarding the plan of care and ED course. srm Accompanied by Family Member, Patient has correct armband on for positive identification. 19:06 Inserted saline lock: 20 gauge in right antecubital area. srm 19:08 Patient visited by Marie Perales RN. srm 19:10 Patient visited by Kathleen Obrien RN. mlc 19:24 Greg Shelley DO is Attending Physician. mm11 19:24 Patient visited by Greg Shelley DO. mm11 19:29 Primary Nurse role handed off by Greg Patel RN justyna 19:54 Patient visited by Kathleen Obrien RN. mlc 20:41 Patient visited by Kathleen Obrien RN. mlc 20:47 Patient visited by Kathleen Obrien RN. mlc 20:52 Patient visited by Greg Shelley DO. mm11 21:06 Hip, (AP/Lat) Returned. EDMS 21:08 Patient visited by Kathleen Obrien RN. mlc 21:17 [facility] Payment Agreement was scanned into [email or web address] and attached to record. gb 21:26 Patient visited by Kathleen Obrien RN. mlc 21:59 Patient visited by Greg Shelley DO. mm11 21:59 Tomasa Chapa is Referral Physician. mm11 22:17 Discontinued IV lock intact, bleeding controlled, pressure dressing applied, No mlc redness/swelling at site. No procedures done that require assistance. Administered Medications: 19:49 Drug: Ondansetron 4 mg [ondansetron HCl 2 mg/mL intravenous solution (2 mL)] Route: mlc IVP; Site: right antecubital; 20:40 Follow up: Response: Nausea is decreased mlc 19:50 Drug: morphine 4 mg [morphine 4 mg/mL intravenous cartridge (1 mL)] Route: IVP; Site: mlc right antecubital; 20:40 Follow up: BP 181 / 88; Pulse 104 bpm; Pulse Ox 96% ; Pain 6/10 Adult; Response: Pain mlc is decreased 20:46 Drug: morphine 4 mg [morphine 4 mg/mL intravenous cartridge (1 mL)] Route: IVP; Site: mlc right antecubital; 21:25 Follow up: Pain 2/10 Adult; Response: Pain is decreased mlc Order Results: Radiology Order: Hip, (AP/Lat) Test: Hip, (AP/Lat) REASON FOR EXAMINATION: recent hip replacement felt a pop; Clinical: Trauma.; ; Technique: AP and frog lateral views of the left hip.; ; Comparison: 10/26/2016.; ; Findings:; Status post hip replacement and underlying pelvic fracture repair. Orthopedic; hardware, osseous structures, and dystrophic calcifications in the adjacent soft; tissue appears stable.; ; Impression:; Stable examination compared to 10/26/2016.; ; ; Signed by; Garth Smiley MD 10/29/2016 08:29 P; Outcome: 22:00 Discharge ordered by Provider. mm11 22:17 Discharge Assessment: Patient awake, alert and oriented x 3. No cognitive and/or mlc functional deficits noted. Patient verbalized understanding of disposition instructions. patient administered narcotics - yes. Pt provided with safe discharge. The following High Risk Discharge criteria are identified: None. Discharged to home ambulatory, with crutches. Condition: good Condition: stable Condition: improved. Discharge instructions given to patient, Instructed on discharge instructions, follow up and referral plans. Demonstrated understanding of instructions, Pt was receptive of discharge instructions/ teaching. No special radiology studies were completed. Property sent home with patient. 22:18 [place] the [place] [facility] [place] Signatures: Dispatcher [employer] EDMS Marie Perales, RN RN [facility] Yulisa Aleman, Reg Reg Greg Shelley, DO mm11 Christine Mendiola, MASH GRINDER MASH GRINDER Henry Olvera gr2 Kathleen Obrien RN RN mlc MTDD
--- NOTE | 2016-10-29 22:19 | EDDOCDS ---
Physician Documentation [facility] Name: Maricel Yates Age: 46 yrs Sex: Female : 1970 Arrival Date: 10/29/2016 Time: 18:13 Bed 12 Private MD: Tomasa Chapa D Disposition: 10/29/16 22:00 Discharged to Home/Self Care. Impression: Pain in left hip. - Condition is Stable. - Discharge Instructions: Musculoskeletal Pain, Pain Without a Known Cause, Hip Pain. - Medication Reconciliation, Local Pharmacy Hours form. - Follow up: Tomasa Chapa; When: Call to arrange an appointment; Reason: Continuance of care. Follow up: Private Physician; When: As previously arranged; Reason: Continuance of care. - Problem is an acute exacerbation. - Symptoms have improved. - Notes: YOUR XRAYS SHOW THAT YOUR HIP REPLACEMENT IS IN GOOD POSITION WITHOUT FRACTURE. FOLLOW UP WITH YOUR PRIMARY CARE PROVIDER AND YOUR ORTHOPEDIC SURGEON PREVIOUSLY ARRANGED. Historical: - Allergies: Strawberries; TETRACYCLINES; Theophylline; - Home Meds: 1. Abilify 15 mg Oral tab 1 tab once daily 2. albuterol sulfate 2.5 mg /3 mL (0.083 %) Inhl nebu 3 mL every 4 hours 3. Combivent 18-103 mcg/actuation Inhl aero 4 puffs twice a day 4. gabapentin 100 mg Oral cap 1 caps 3 times per day 5. fluvoxamine 100 mg Oral tab 1 tab 2 times per day 6. hydrochlorothiazide 25 mg Oral tab once daily 7. hydroxyzine HCl 50 mg Oral tab nightly 8. Klonopin 2 mg Oral tab 3 times per day 9. labetalol 100 mg Oral tab 1 tab 2 times per day 10. Zoloft 50 mg Oral tab 1 tab once daily 11. OxyContin 5 mg Oral 2 tabs q4 hrs prn MDD 8/24 hr 1pill at 530 (Last dose: 10/29/2016 17:30) - PMHx: agorophobia; Anxiety; Asthma; COPD; Depression; Emphysema; Hypertension; OCD; - PSHx: Hysterectomy; Cholecystectomy; Knee surgery- Right; left hip surgery x3; - Social history: Smoking status: Patient uses tobacco products, current every day smoker. No barriers to communication noted, The patient speaks fluent Macedonian, Speaks appropriately for age. - Family history: Not pertinent. - : The pt / caregiver states he / she is not on anticoagulants. Home medication list is obtained from the patient. - Exposure Risk Screening:: None identified. 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 3 in. (160.02 cm) (R); Pain 8/10; 18:41 Pulse 68 MON; mlc 19:47 BP 178 / 85 (auto/); mlc 19:50 Pulse Ox 96% ; mlc 20:40 BP 181 / 88; Pulse 104; Pulse Ox 96% ; Pain 6/10; mlc 21:25 Pain 2/10; mlc 22:17 BP 183 / 88; Pulse 109; Resp 20; Temp 98.3; Pulse Ox 96% ; Pain 2/10; mlc 18:15 Body Mass Index 33.48 (85.73 kg, 160.02 cm) gr2 MDM: 18:25 Hip, (AP/Lat) Ordered. EDMS 19:40 IV Saline Lock ordered. mm11 19:40 morphine 4 mg IVP every 30 minutes; Document pain score/vitals after each dose (Hold if mm11 SBP < 90mmHg) x2 ordered. 19:40 Ondansetron 4 mg IVP once ordered. mm11 20:52 Ambulate patient to assess pain tolerance ordered. mm11 21:03 Financial registration complete. gb 21:17 [facility] Payment Agreement was scanned into [employer] and attached to record. gb Administered Medications: 19:49 Drug: Ondansetron 4 mg [ondansetron HCl 2 mg/mL intravenous solution (2 mL)] Route: mlc IVP; Site: right antecubital; 20:40 Follow up: Response: Nausea is decreased mlc 19:50 Drug: morphine 4 mg [morphine 4 mg/mL intravenous cartridge (1 mL)] Route: IVP; Site: mlc right antecubital; 20:40 Follow up: BP 181 / 88; Pulse 104 bpm; Pulse Ox 96% ; Pain 6/10 Adult; Response: Pain mlc is decreased 20:46 Drug: morphine 4 mg [morphine 4 mg/mL intravenous cartridge (1 mL)] Route: IVP; Site: mlc right antecubital; 21:25 Follow up: Pain 2/10 Adult; Response: Pain is decreased mlc Signatures: Dispatcher [employer] Marie Rae RN RN [facility] Yulisa, Reg Reg gb Greg Shelley, DO mm11 Kathleen Obrien RN RN mlc The chart was reviewed and I authenticate all verbal orders and agree with the evaluation and treatment provided.Attachments: 21:17 [facility] Payment Agreement gb MTDD
--- NOTE | 2016-10-31 23:19 | EDDOCDS ---
Physician Documentation [facility] Name: Maricel Yates Age: 46 yrs Sex: Female : 1970 Arrival Date: 10/29/2016 Time: 18:13 Bed 12 Private MD: Tomasa Chapa D Disposition: 10/29/16 22:00 Discharged to Home/Self Care. Impression: Pain in left hip. - Condition is Stable. - Discharge Instructions: Musculoskeletal Pain, Pain Without a Known Cause, Hip Pain. - Medication Reconciliation, Local Pharmacy Hours form. - Follow up: Tomasa Chapa; When: Call to arrange an appointment; Reason: Continuance of care. Follow up: Private Physician; When: As previously arranged; Reason: Continuance of care. - Problem is an acute exacerbation. - Symptoms have improved. - Notes: YOUR XRAYS SHOW THAT YOUR HIP REPLACEMENT IS IN GOOD POSITION WITHOUT FRACTURE. FOLLOW UP WITH YOUR PRIMARY CARE PROVIDER AND YOUR ORTHOPEDIC SURGEON PREVIOUSLY ARRANGED. Historical: - Allergies: Strawberries; TETRACYCLINES; Theophylline; - Home Meds: 1. Abilify 15 mg Oral tab 1 tab once daily 2. albuterol sulfate 2.5 mg /3 mL (0.083 %) Inhl nebu 3 mL every 4 hours 3. Combivent 18-103 mcg/actuation Inhl aero 4 puffs twice a day 4. gabapentin 100 mg Oral cap 1 caps 3 times per day 5. fluvoxamine 100 mg Oral tab 1 tab 2 times per day 6. hydrochlorothiazide 25 mg Oral tab once daily 7. hydroxyzine HCl 50 mg Oral tab nightly 8. Klonopin 2 mg Oral tab 3 times per day 9. labetalol 100 mg Oral tab 1 tab 2 times per day 10. Zoloft 50 mg Oral tab 1 tab once daily 11. OxyContin 5 mg Oral 2 tabs q4 hrs prn MDD 8/24 hr 1pill at 530 (Last dose: 10/29/2016 17:30) - PMHx: agorophobia; Anxiety; Asthma; COPD; Depression; Emphysema; Hypertension; OCD; - PSHx: Hysterectomy; Cholecystectomy; Knee surgery- Right; left hip surgery x3; - Social history: Smoking status: Patient uses tobacco products, current every day smoker. No barriers to communication noted, The patient speaks fluent Belarusian, Speaks appropriately for age. - Family history: Not pertinent. - : The pt / caregiver states he / she is not on anticoagulants. Home medication list is obtained from the patient. - Exposure Risk Screening:: None identified. 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 3 in. (160.02 cm) (R); Pain 8/10; 18:41 Pulse 68 MON; mlc 19:47 BP 178 / 85 (auto/); mlc 19:50 Pulse Ox 96% ; mlc 20:40 BP 181 / 88; Pulse 104; Pulse Ox 96% ; Pain 6/10; mlc 21:25 Pain 2/10; mlc 22:17 BP 183 / 88; Pulse 109; Resp 20; Temp 98.3; Pulse Ox 96% ; Pain 2/10; mlc 18:15 Body Mass Index 33.48 (85.73 kg, 160.02 cm) gr2 MDM: 18:25 Hip, (AP/Lat) Ordered. EDMS 19:40 IV Saline Lock ordered. mm11 19:40 morphine 4 mg IVP every 30 minutes; Document pain score/vitals after each dose (Hold if mm11 SBP < 90mmHg) x2 ordered. 19:40 Ondansetron 4 mg IVP once ordered. mm11 20:52 Ambulate patient to assess pain tolerance ordered. mm11 21:03 Financial registration complete. gb 21:17 [facility] Payment Agreement was scanned into [email or web address] and attached to record. gb 10/30 09:47 T-Sheet-- Draft Copy was scanned into [email or web address] and attached to record. jp5 Administered Medications: 10/29 19:49 Drug: Ondansetron 4 mg [ondansetron HCl 2 mg/mL intravenous solution (2 mL)] Route: mlc IVP; Site: right antecubital; 20:40 Follow up: Response: Nausea is decreased [facility] [place] 19:50 Drug: morphine 4 mg [morphine 4 mg/mL intravenous cartridge (1 mL)] Route: IVP; Site: mlc right antecubital; 20:40 Follow up: BP 181 / 88; Pulse 104 bpm; Pulse Ox 96% ; Pain 6/10 Adult; Response: Pain mlc is decreased 20:46 Drug: morphine 4 mg [morphine 4 mg/mL intravenous cartridge (1 mL)] Route: IVP; Site: mlc right antecubital; 21:25 Follow up: Pain 2/10 Adult; Response: Pain is decreased mlc Signatures: Dispatcher [employer] EDMarie Chapin RN RN [facility] Yulisa Aleman, Reg Reg Greg Shelley, DO mm11 Kathleen Obrien RN RN [facility] [place] Aranza Tran jp5 The chart was reviewed and I authenticate all verbal orders and agree with the evaluation and treatment provided.Attachments: 21:17 [facility] Payment Agreement gb 10/30 09:47 T-Sheet-- Draft Copy jp5 Chart Complete MTDD
--- NOTE | 2016-10-31 23:19 | EDDOCDS ---
Nurse's Notes [facility] Name: Maricel Yates Age: 46 yrs Sex: Female : 1970 Arrival Date: 10/29/2016 Time: 18:13 Bed 12 Private MD: Tomasa Chapa D Diagnosis: Pain in left hip Presentation: 10/29 18:18 Presenting complaint: Patient states: felt a pop while sat up in bed to left hip. right srm hip replacement 2 weeks ago. Adult Sepsis Screening: The patient does not have new or worsening altered mentation. Patient's respiratory rate is less than 22. Systolic blood pressure is greater than 100. Patient has a qSOFA score of 0- Negative Sepsis Screen. Suicide/Homicide risk assessment- the patient denies having any suicidal and/or homicidal ideations and does not present with any other emotional, behavioral or mental health complaints. 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 Transition of care: patient was not received from another setting of care. 18:18 Acuity: NICO Level 4 srm 18:18 Method Of Arrival: Wheelchair srm 19:01 Acuity level changed due to complexity of care. srm 19:01 Acuity: NICO Level 3 srm Triage Assessment: 18:22 General: Appears uncomfortable, Behavior is appropriate for age, cooperative. Pain: srm Pain currently is 8 out of 10 on a pain scale. HIV screening NA for this visit Offered previously. 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 Abilify 15 mg Oral tab 1 tab once daily 2. albuterol sulfate 2.5 mg /3 mL (0.083 %) Inhl nebu 3 mL every 4 hours 3. Combivent 18-103 mcg/actuation Inhl aero 4 puffs twice a day 4. gabapentin 100 mg Oral cap 1 caps 3 times per day 5. fluvoxamine 100 mg Oral tab 1 tab 2 times per day 6. hydrochlorothiazide 25 mg Oral tab once daily 7. hydroxyzine HCl 50 mg Oral tab nightly 8. Klonopin 2 mg Oral tab 3 times per day 9. labetalol 100 mg Oral tab 1 tab 2 times per day 10. Zoloft 50 mg Oral tab 1 tab once daily 11. OxyContin 5 mg Oral 2 tabs q4 hrs prn MDD 8/24 hr 1pill at 530 (Last dose: 10/29/2016 17:30) - PMHx: agorophobia; Anxiety; Asthma; COPD; Depression; Emphysema; Hypertension; OCD; - PSHx: Hysterectomy; Cholecystectomy; Knee surgery- Right; left hip surgery x3; - Social history: Smoking status: Patient uses tobacco products, current every day smoker. No barriers to communication noted, The patient speaks fluent [place], Speaks appropriately for age. - Family history: Not pertinent. - : The pt / caregiver states he / she is not on anticoagulants. Home medication list is obtained from the patient. - Exposure Risk Screening:: None identified. Screenin:08 Screening information is obtained from the patient. Fall risk: At risk due to injury. mlc Assistance ADL's: requires no assistance with activities of daily living. Abuse/DV Screen: The patient / caregiver reports he/she is: not in a situation that causes fear, pain or injury. Nutritional screening: No deficits noted. Advance Directives: Currently, there is no health care proxy. There is no Power of Engineer Specialist. home support is adequate. Assessment: 19:06 General: Appears uncomfortable, Behavior is appropriate for age, cooperative, pedal srm pulses palpable to left foot. left leg slightly swollen. cal to left hip[ surgical site clean without redness or drainage. . moves toes well. 19:08 General: Appears uncomfortable, Behavior is cooperative. Pain: Location: left hip Pain mlc currently is 10 out of 10 on a pain scale. Neurological: Level of Consciousness is awake, alert, obeys commands, Oriented to person, place, time. Cardiovascular: Capillary refill < 3 seconds in bilateral toes Pulses are all present. Respiratory: Airway is patent Respiratory effort is even, unlabored, Respiratory pattern is regular. Derm: Skin 31 cal counted to left hip, incision well approximated, no drainage noted. Skin is normal. 19:53 Reassessment: Patient states symptoms have not improved. pt medicated per order. mlc 20:41 Reassessment: Patient appears in no apparent distress at this time. pain decreased to mlc 6/10. 20:47 Reassessment: pt medicated per order. mlc 21:07 General: pt able to ambulate to bathroom with staff using crutches. . mlc 21:26 Reassessment: Patient appears in no apparent distress at this time. Patient states mlc feeling better. Patient states symptoms have improved. pain decreased to 2/10. pt sitting at bedside. resp easy/unlabored. . 22:17 General: Appears in no apparent distress, comfortable, Behavior is cooperative. Pain: mlc Pain currently is 2 out of 10 on a pain scale. 22:17 Neurological: Level of Consciousness is awake, alert, Oriented to person, place, time. mlc Respiratory: Airway is patent Respiratory effort is even, unlabored, Respiratory pattern is regular. Vital Signs: 18:15 BP 198 / 106; Pulse 109; Resp 18 S; Temp 99.6(O); Pulse Ox 100% on R/A; Weight 85.73 kg gr2 (R); Height 5 ft. 3 in. (160.02 cm) (R); Pain 8/10; 18:41 Pulse 68 MON; mlc 19:47 BP 178 / 85 (auto/); mlc 19:50 Pulse Ox 96% ; mlc 20:40 BP 181 / 88; Pulse 104; Pulse Ox 96% ; Pain 6/10; mlc 21:25 Pain 2/10; mlc 22:17 BP 183 / 88; Pulse 109; Resp 20; Temp 98.3; Pulse Ox 96% ; Pain 2/10; mlc 18:15 Body Mass Index 33.48 (85.73 kg, 160.02 cm) 2 Vitals: 18:15 Log In Time: October 29, 2016 at 18:15. gr2 ED Course: 18:15 Patient visited by Henry Suarez. gr2 18:15 Tomasa Chapa is Private Physician. gr2 18:15 Patient moved to Waiting gr2 18:17 Patient visited by Henry Suarez. gr2 18:18 Patient moved to Pre RCE gr2 18:19 Triage Initiated srm 19:01 Greg Patel, RN is Primary Nurse. srm 19:01 Kathleen Obrien,ATTIANA is Primary Nurse. srm 19:01 Patient moved to 12 srm 19:06 The patient / caregiver is instructed regarding the plan of care and ED course. srm Accompanied by Family Member, Patient has correct armband on for positive identification. 19:06 Inserted saline lock: 20 gauge in right antecubital area. srm 19:08 Patient visited by Marie Perales RN. srm 19:10 Patient visited by Kathleen Obrien RN. mlc 19:24 Greg Shelley DO is Attending Physician. mm11 19:24 Patient visited by Greg Shelley DO. mm11 19:29 Primary Nurse role handed off by Greg Patel RN justyna 19:54 Patient visited by Kathleen Obrien RN. mlc 20:41 Patient visited by Kathleen Obrien RN. mlc 20:47 Patient visited by Kathleen Obrien RN. mlc 20:52 Patient visited by Greg Shelley DO. mm11 21:06 Hip, (AP/Lat) Returned. EDMS 21:08 Patient visited by Kathleen Obrien RN. mlc 21:17 [facility] Payment Agreement was scanned into [employer] and attached to record. gb 21:26 Patient visited by Kathleen Obrien RN. mlc 21:59 Patient visited by Greg Shelley DO. mm11 21:59 Tomasa Chapa is Referral Physician. mm11 22:17 Discontinued IV lock intact, bleeding controlled, pressure dressing applied, No mlc redness/swelling at site. No procedures done that require assistance. 10/30 09:47 T-Sheet-- Draft Copy was scanned into [employer] and attached to record. jp5 Administered Medications: 10/29 19:49 Drug: Ondansetron 4 mg [ondansetron HCl 2 mg/mL intravenous solution (2 mL)] Route: mlc IVP; Site: right antecubital; 20:40 Follow up: Response: Nausea is decreased mlc 19:50 Drug: morphine 4 mg [morphine 4 mg/mL intravenous cartridge (1 mL)] Route: IVP; Site: mlc right antecubital; 20:40 Follow up: BP 181 / 88; Pulse 104 bpm; Pulse Ox 96% ; Pain 6/10 Adult; Response: Pain mlc is decreased 20:46 Drug: morphine 4 mg [morphine 4 mg/mL intravenous cartridge (1 mL)] Route: IVP; Site: mlc right antecubital; 21:25 Follow up: Pain 2/10 Adult; Response: Pain is decreased mlc Order Results: Radiology Order: Hip, (AP/Lat) Test: Hip, (AP/Lat) REASON FOR EXAMINATION: recent hip replacement felt a pop; Clinical: Trauma.; ; Technique: AP and frog lateral views of the left hip.; ; Comparison: 10/26/2016.; ; Findings:; Status post hip replacement and underlying pelvic fracture repair. Orthopedic; hardware, osseous structures, and dystrophic calcifications in the adjacent soft; tissue appears stable.; ; Impression:; Stable examination compared to 10/26/2016.; ; ; Signed by; Garth Smiley MD 10/29/2016 08:29 P; Outcome: 22:00 Discharge ordered by Provider. mm11 22:17 Discharge Assessment: Patient awake, alert and oriented x 3. No cognitive and/or mlc functional deficits noted. Patient verbalized understanding of disposition instructions. patient administered narcotics - yes. Pt provided with safe discharge. The following High Risk Discharge criteria are identified: None. Discharged to home ambulatory, with crutches. Condition: good Condition: stable Condition: improved. Discharge instructions given to patient, Instructed on discharge instructions, follow up and referral plans. Demonstrated understanding of instructions, Pt was receptive of discharge instructions/ teaching. No special radiology studies were completed. Property sent home with patient. 22:18 Patient left the ED. mlc Signatures: Dispatcher [employer] EDMS Marie Perales, RN RN [facility] Yulisa Aleman, Reg Reg gb Greg Shelley, DO mm11 Christine Mendiola, MAUDE EXPANDED DUTY DENTAL ASSISTANT Henry Olvera gr2 Kathleen ObrienRN RN Aranza Jean 5 Chart Complete MTDD
--- NOTE | 2016-10-31 23:19 | EDDOCDS ---
Physician Documentation [facility] Name: Maricel Yates Age: 46 yrs Sex: Female : 1970 Arrival Date: 10/29/2016 Time: 18:13 Bed 12 Private MD: Tomasa Chapa D Disposition: 10/29/16 22:00 Discharged to Home/Self Care. Impression: Pain in left hip. - Condition is Stable. - Discharge Instructions: Musculoskeletal Pain, Pain Without a Known Cause, Hip Pain. - Medication Reconciliation, Local Pharmacy Hours form. - Follow up: Tomasa Chapa; When: Call to arrange an appointment; Reason: Continuance of care. Follow up: Private Physician; When: As previously arranged; Reason: Continuance of care. - Problem is an acute exacerbation. - Symptoms have improved. - Notes: YOUR XRAYS SHOW THAT YOUR HIP REPLACEMENT IS IN GOOD POSITION WITHOUT FRACTURE. FOLLOW UP WITH YOUR PRIMARY CARE PROVIDER AND YOUR ORTHOPEDIC SURGEON PREVIOUSLY ARRANGED. Historical: - Allergies: Strawberries; TETRACYCLINES; Theophylline; - Home Meds: 1. Abilify 15 mg Oral tab 1 tab once daily 2. albuterol sulfate 2.5 mg /3 mL (0.083 %) Inhl nebu 3 mL every 4 hours 3. Combivent 18-103 mcg/actuation Inhl aero 4 puffs twice a day 4. gabapentin 100 mg Oral cap 1 caps 3 times per day 5. fluvoxamine 100 mg Oral tab 1 tab 2 times per day 6. hydrochlorothiazide 25 mg Oral tab once daily 7. hydroxyzine HCl 50 mg Oral tab nightly 8. Klonopin 2 mg Oral tab 3 times per day 9. labetalol 100 mg Oral tab 1 tab 2 times per day 10. Zoloft 50 mg Oral tab 1 tab once daily 11. OxyContin 5 mg Oral 2 tabs q4 hrs prn MDD 8/24 hr 1pill at 530 (Last dose: 10/29/2016 17:30) - PMHx: agorophobia; Anxiety; Asthma; COPD; Depression; Emphysema; Hypertension; OCD; - PSHx: Hysterectomy; Cholecystectomy; Knee surgery- Right; left hip surgery x3; - Social history: Smoking status: Patient uses tobacco products, current every day smoker. No barriers to communication noted, The patient speaks fluent Maltese, Speaks appropriately for age. - Family history: Not pertinent. - : The pt / caregiver states he / she is not on anticoagulants. Home medication list is obtained from the patient. - Exposure Risk Screening:: None identified. 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 3 in. (160.02 cm) (R); Pain 8/10; 18:41 Pulse 68 MON; mlc 19:47 BP 178 / 85 (auto/); mlc 19:50 Pulse Ox 96% ; mlc 20:40 BP 181 / 88; Pulse 104; Pulse Ox 96% ; Pain 6/10; mlc 21:25 Pain 2/10; mlc 22:17 BP 183 / 88; Pulse 109; Resp 20; Temp 98.3; Pulse Ox 96% ; Pain 2/10; mlc 18:15 Body Mass Index 33.48 (85.73 kg, 160.02 cm) gr2 MDM: 18:25 Hip, (AP/Lat) Ordered. EDMS 19:40 IV Saline Lock ordered. mm11 19:40 morphine 4 mg IVP every 30 minutes; Document pain score/vitals after each dose (Hold if mm11 SBP < 90mmHg) x2 ordered. 19:40 Ondansetron 4 mg IVP once ordered. mm11 20:52 Ambulate patient to assess pain tolerance ordered. mm11 21:03 Financial registration complete. gb 21:17 [facility] Payment Agreement was scanned into [employer] and attached to record. gb 10/30 09:47 T-Sheet-- Draft Copy was scanned into [employer] and attached to record. jp5 Administered Medications: 10/29 19:49 Drug: Ondansetron 4 mg [ondansetron HCl 2 mg/mL intravenous solution (2 mL)] Route: mlc IVP; Site: right antecubital; 20:40 Follow up: Response: Nausea is decreased [facility] 19:50 Drug: morphine 4 mg [morphine 4 mg/mL intravenous cartridge (1 mL)] Route: IVP; Site: mlc right antecubital; 20:40 Follow up: BP 181 / 88; Pulse 104 bpm; Pulse Ox 96% ; Pain 6/10 Adult; Response: Pain mlc is decreased 20:46 Drug: morphine 4 mg [morphine 4 mg/mL intravenous cartridge (1 mL)] Route: IVP; Site: mlc right antecubital; 21:25 Follow up: Pain 2/10 Adult; Response: Pain is decreased mlc Signatures: Dispatcher [employer] EDMarie Chapin RN RN [facility] Yulisa Aleman, Reg Reg Greg Shelley, DO mm11 Kathleen Obrien RN RN [facility] Aranza Tran jp5 The chart was reviewed and I authenticate all verbal orders and agree with the evaluation and treatment provided.Attachments: 21:17 [facility] Payment Agreement gb 10/30 09:47 T-Sheet-- Draft Copy jp5 Chart Complete MTDD
== END 2016-10-29 22:18 | disposition home or self-care (01) ==
LOC: M ED 18:13
DX: M25.552 Pain in left hip (principal); Z98.890 Other specified postprocedural states; I10 Essential (primary) hypertension; J44.9 Chronic obstructive pulmonary disease, unspecified; J45.909 Unspecified asthma, uncomplicated; F41.9 Anxiety disorder, unspecified; F32.9 Major depressive disorder, single episode, unspecified; F42.9 Obsessive-compulsive disorder, unspecified; F40.00 Agoraphobia, unspecified; Z79.899 Other long term (current) drug therapy; Z88.1 Allergy status to other antibiotic agents; Z88.8 Allergy status to other drugs, medicaments and biological substances; Z91.018 Allergy to other foods; F17.210 Nicotine dependence, cigarettes, uncomplicated
CPT/HCPCS: 73502; 96374; 96375; 96376; 99284; J2405

== ENCOUNTER → 2016-12-12 | Outpatient (CLI) | payer MEDICARE ==
--- NOTE | 2016-12-19 16:21 | REP ---
MRI ABDOMEN WITHOUT AND WITH CONTRAST: 12/12/2016: Comparison: CT abdomen pelvis with contrast 06/06/[address] [place] [address]. Clinical history: Nodule is for follow-up. See noncontrast CT. Use dedicated adrenal protocol. Technique: True fist, axial and out of phase, T1, fat suppressed T1 and T2 sequences, coronal P1 and T2 sequences and following infusion of 15 ml as of ProHance, fat suppressed T1 axial and coronal sequences were performed. Findings: Liver and spleen on these image sets show no focal lesion. There is no biliary dilatation. Neither organ is completely imaged in the field of view for the study. The segments visualized were intact. No biliary dilatation. Visualized pancreas shows no mass, ductal dilatation or inflammatory change in the adjacent fat. No pseudocyst. Kidneys are without mass, hydronephrosis or cyst. No perinephric fluid adjacent. Aorta unremarkable. There is a 2.2 cm nodule the left adrenal gland and a 1.1 cm nodule in the medial limb of the right adrenal gland. Is there both noted to V isointense to the surrounding adrenal on the in phase and out of phase show significant signal drop off which is definitive evidence for a benign adrenal adenoma. After contrast administration, there is no abnormal enhancing mass in the liver, spleen, pancreas, visualized portions of the kidneys nor in either adrenal gland. The nodule enhances less than the remainder of the adrenal gland on each side. Impression: 1. The in and out of phase images confirm significant signal drop off for both adrenal nodules, larger on the left and smaller on the right. This is evidence for adrenal adenoma. There is no other significant finding. No follow-up is necessary with this scan providing definitive evidence for benign adenoma. Signed by Ciaran Tejeda MD 12/19/2016 05:24 P
== END ==
LOC: M RAD 12:10
PROVIDERS: ATTEND Nurse Practitioner Family
DX: E27.9 Disorder of adrenal gland, unspecified (principal)
CPT/HCPCS: 74183; A9576

== ENCOUNTER → 2017-04-20 | Outpatient (CLI) | payer MEDICARE, MEDICAID ==
[~2017-04-20] MED LIST changes: +BYST20TA2 PO; +CHLO100T9 PO; +COPA1INJ SC; -HYDR-4274 PO; +HYDR50TA70 PO; +OXYC-404 PO; -OXYC1TAB56 PO; -PROA1AER INH; +PROAAER10 INH; +SENN18TA PO; -SENN1TAB4 PO; +VALS1TAB49 PO
--- NOTE | 2017-04-20 10:53 | REP ---
MRI BRAIN WITHOUT CONTRAST: HISTORY: Rule out demyelination. CONTRAST: ProHance 15 mL. Several areas of increased signal intensity on T2-weighted images are present in the periventricular and subcortical white matter. An additional area of increased signal intensity is present in the corpus callosum. There are no areas of abnormal signal intensity in the brain stem or cerebellum. There is no intraparenchymal hemorrhage, infarct, mass or midline shift. There is no abnormal enhancement. The ventricular system is normal in appearance. There is no extracerebral collection. The sinuses are clear. IMPRESSION: There are several areas of increased signal intensity in the periventricular and subcortical white matter and corpus callosum. This is suspicious for demyelinating disease. Signed by Misha Vargas MD 04/20/2017 11:07 A
== END ==
LOC: M RAD 09:41
PROVIDERS: ATTEND Nurse Practitioner Family
DX: R93.7 Abnormal findings on diagnostic imaging of other parts of musculoskeletal system (principal)
CPT/HCPCS: 70553; A9576

== ENCOUNTER 2017-05-04 13:02 | Outpatient (CLI) | payer MEDICARE, MEDICAID ==
[~2017-05-04 13:02] MED LIST changes: -BYST20TA2 PO; -CHLO100T9 PO; -COPA1INJ SC; -VALS1TAB49 PO
[2017-05-04 13:25] VITALS: BP 178/108
[2017-05-04] MEDS ORDERED: CHLO100T9 PO (13:44)
[2017-05-04] MEDS ORDERED: VALS1TAB49 PO (13:44)
[2017-05-04] MEDS ORDERED: BYST20TA2 PO (13:44)
[2017-05-04] MEDS ORDERED: COPA1INJ SC (13:45)
[2017-05-04] MEDS ORDERED: methylPREDNISolone 1,000 MG, VIAL MATE ADAPTER 1 EACH in D5W 250 ML IV ONE (14:00)
== END 2017-05-04 15:35 | disposition home or self-care (01) ==
LOC: M OPCLIPED 13:02 → M PED 13:05 → M OPCLIPED 15:35
PROVIDERS: ATTEND Psychiatry & Neurology Neurology
DX: G35 Multiple sclerosis (principal)
CPT/HCPCS: 96365; J2930

== ENCOUNTER 2017-05-05 11:59 | Outpatient (CLI) | payer MEDICARE, MEDICAID ==
[~2017-05-05] VITALS: Ht 160 cm; Wt 83.6 kg
[~2017-05-05 11:59] MED LIST changes: +BYST20TA2 PO; +CHLO100T9 PO; +COPA1INJ SC; +VALS1TAB49 PO
[2017-05-05] MEDS ORDERED: methylPREDNISolone 1,000 MG, VIAL MATE ADAPTER 1 EACH in D5W 250 ML IV ONE (12:45)
== END 2017-05-05 14:00 | disposition home or self-care (01) ==
LOC: M INFU 11:59
PROVIDERS: ATTEND Psychiatry & Neurology Neurology
DX: G35 Multiple sclerosis (principal); Z79.899 Other long term (current) drug therapy; Z91.018 Allergy to other foods
CPT/HCPCS: 96365; J2930

== ENCOUNTER 2017-05-06 10:47 | Outpatient (CLI) | payer MEDICARE, MEDICAID ==
[~2017-05-06] VITALS: Ht 157.5 cm; Wt 82.7 kg
[2017-05-06 11:05] VITALS: BP 168/98
[2017-05-06] MEDS ORDERED: methylPREDNISolone 1,000 MG, VIAL MATE ADAPTER 1 EACH in D5W 250 ML IV ONE (11:30)
== END 2017-05-06 12:45 | disposition home or self-care (01) ==
LOC: M OPCLI4PR 10:47 → M PED 10:49 → M OPCLI4PR 12:45
PROVIDERS: ATTEND Psychiatry & Neurology Neurology
DX: G35 Multiple sclerosis (principal); Z79.899 Other long term (current) drug therapy; Z91.018 Allergy to other foods
CPT/HCPCS: 96365; J2930

== ENCOUNTER 2017-05-07 08:48 | Outpatient (CLI) | payer MEDICARE, MEDICAID ==
[~2017-05-07] VITALS: Ht 160 cm; Wt 83.8 kg
[2017-05-07 09:50] VITALS: BP 210/100
[2017-05-07 10:00] LABS: BASO % 0.2 % (0.0-1.0); EOS % 0.1 % (0.0-3.0); LARGE UNSTAINED CELL # 0.1 K/mm3 (0.0-0.4); LARGE UNSTAINED CELL % 0.5 % (0.0-4.0); LYMPH # 1.3 K/mm3 (1.5-4.5); LYMPH % 8.9 % (24.0-44.0); MEAN CORPUSCULAR HEMOGLOBIN 30.9 pg (27.0-33.0); MEAN CORPUSCULAR HGB CONC 33.1 g/dl (32.0-36.5); MEAN CORPUSCULAR VOLUME 93.6 fl (80.0-96.0); MONO # 0.8 K/mm3 (0.0-0.8); MONO % 5.6 % (0.0-5.0); NEUTROPHILS # 11.5 K/mm3 (1.8-7.7); NEUTROPHILS % 84.8 % (36.0-66.0); PLATELET COUNT, AUTOMATED 349 k/mm3 (150-450); RED CELL DISTRIBUTION WIDTH 13.8 % (11.5-14.5); WHITE BLOOD COUNT 13.5 K/mm3 (4.0-10.0)
[2017-05-07] MEDS ORDERED: methylPREDNISolone 1,000 MG, VIAL MATE ADAPTER 1 EACH in D5W 250 ML IV ONE (10:00)
[2017-05-07 10:22] LABS: ERYTHROCYTE SEDIMENTATION RATE 5 mm/hr (0-20)
[2017-05-07 10:33] LABS: ALBUMIN 3.5 GM/DL (3.2-5.2); ALKALINE PHOSPHATASE 83 U/L (45-117); ALT/SGPT 23 U/L (12-78); ANION GAP 11 MEQ/L (8-16); AST/SGOT 10 U/L (15-37); BILIRUBIN,TOTAL 0.6 MG/DL (0.2-1.0); BLOOD UREA NITROGEN 19 MG/DL (7-18); CALCIUM LEVEL 8.6 MG/DL (8.5-10.1); CARBON DIOXIDE LEVEL 26 MEQ/L (21-32); CHLORIDE LEVEL 105 MEQ/L (98-107); CREATININE FOR GFR 0.68 MG/DL (0.55-1.02); GLOMERULAR FILTRATION RATE > 60.0 (>58); GLUCOSE, FASTING 157 MG/DL (70-105); POTASSIUM SERUM 3.9 MEQ/L (3.5-5.1); SODIUM LEVEL 142 MEQ/L (136-145)
[2017-05-07] MEDS ORDERED: LISINOPRIL 10 MG TAB PO ONE (11:00)
[2017-05-07 11:13] VITALS: BP 186/102
[2017-05-07 11:46] VITALS: BP 178/96
[2017-05-07 13:28] VITALS: BP 172/92
[2017-05-08 10:05] LABS: T UPTAKE 37 % (30-39); THYROXINE (T4) 7.3 UG/DL (4.5-12.0)
[2017-05-08 13:03] LABS: FOLATE 16.1 NG/ML; THYROID PEROXIDASE ANTIBODY 32.1 U/ML (<60.0); VITAMIN B12 LEVEL 359 PG/ML
[2017-05-12 00:07] LABS: Lyme Disease IgG/IgM Antibodie <0.91 ISR (0.00-0.90); Lyme Disease IgM Ab Quantitati <0.80 index (0.00-0.79); SJOGREN'S ANTI SS-A <0.2 AI (0.0-0.9); SJOGREN'S ANTI SS-B <0.2 AI (0.0-0.9); VITAMIN E LEVEL 9.7 mg/L (5.3-16.8)
== END 2017-05-07 13:29 | disposition home or self-care (01) ==
LOC: M MSPAV 08:48 → M LAB 08:48 → M OPCLI4PV 13:29
PROVIDERS: ATTEND Psychiatry & Neurology Neurology
DX: G35 Multiple sclerosis (principal); Z79.899 Other long term (current) drug therapy; Z91.018 Allergy to other foods
CPT/HCPCS: 36415; 80053; 82164; 82306; 82607; 82746; 83036; 83520; 84207; 84425; 84436; 84443; 84446; 84479; 85025; 85652; 86038; 86225; 86235; 86255; 86376; 86431; 86617; 96374; J2930

== ENCOUNTER 2017-05-08 09:24 | Outpatient (CLI) | payer MEDICARE, MEDICAID ==
[~2017-05-08] VITALS: Ht 160 cm; Wt 83.6 kg
[2017-05-08] MEDS ORDERED: methylPREDNISolone 1,000 MG, VIAL MATE ADAPTER 1 EACH in D5W 250 ML IV ONE (10:00)
== END 2017-05-08 11:25 | disposition home or self-care (01) ==
LOC: M INFU 09:24
PROVIDERS: ATTEND Psychiatry & Neurology Neurology
DX: G35 Multiple sclerosis (principal); Z79.899 Other long term (current) drug therapy; Z91.018 Allergy to other foods

== ENCOUNTER 2017-05-08 17:17 | Emergency (ER) | payer MEDICARE, MEDICAID ==
[~2017-05-08] VITALS: Ht 160 cm; Wt 77.2 kg
[2017-05-08 19:22] LABS: BASO % 0.4 % (0.0-1.0); EOS % 0.4 % (0.0-3.0); LARGE UNSTAINED CELL % 0.3 % (0.0-4.0); LYMPH # 0.6 K/mm3 (1.5-4.5); LYMPH % 5.2 % (24.0-44.0); MEAN CORPUSCULAR HEMOGLOBIN 31.5 pg (27.0-33.0); MEAN CORPUSCULAR HGB CONC 34.1 g/dl (32.0-36.5); MEAN CORPUSCULAR VOLUME 92.3 fl (80.0-96.0); MONO # 0.2 K/mm3 (0.0-0.8); MONO % 1.9 % (0.0-5.0); NEUTROPHILS % 91.8 % (36.0-66.0); PLATELET COUNT, AUTOMATED 370 k/mm3 (150-450); RED CELL DISTRIBUTION WIDTH 13.5 % (11.5-14.5); WHITE BLOOD COUNT 10.9 K/mm3 (4.0-10.0)
--- NOTE | 2017-05-08 19:27 | REP ---
Portable chest x-ray: Single view: History: Chest pain. Comparison study: 07/08/2016. Findings: EKG electrodes are seen. Cardiomediastinal silhouette is unremarkable. Pulmonary vasculature is not increased. The pleural angles are sharp. Lung murphy are well inflated and clear. Impression: Negative portable chest x-ray. Signed by Ivan Jacobson MD 05/08/2017 08:04 P
[2017-05-08 19:29] LABS: ALBUMIN 3.8 GM/DL (3.2-5.2); ALBUMIN/GLOBULIN RATIO 1.03 (1.00-1.93); ALKALINE PHOSPHATASE 92 U/L (45-117); ALT/SGPT 32 U/L (12-78); ANION GAP 13 MEQ/L (8-16); AST/SGOT 15 U/L (15-37); BILIRUBIN,DIRECT 0.2 MG/DL (0.0-0.2); BILIRUBIN,TOTAL 1.1 MG/DL (0.2-1.0); BLOOD UREA NITROGEN 28 MG/DL (7-18); CALCIUM LEVEL 9.2 MG/DL (8.5-10.1); CARBON DIOXIDE LEVEL 27 MEQ/L (21-32); CHLORIDE LEVEL 98 MEQ/L (98-107); CREATININE FOR GFR 1.39 MG/DL (0.55-1.02); FREE T4 0.83 NG/DL (0.76-1.46); GLOMERULAR FILTRATION RATE 43.5 (>58); GLUCOSE, FASTING 278 MG/DL (70-105); POTASSIUM SERUM 3.8 MEQ/L (3.5-5.1); SODIUM LEVEL 138 MEQ/L (136-145); TOTAL PROTEIN 7.5 GM/DL (6.4-8.2)
[2017-05-08] MEDS ORDERED: cloNIDine 0.2 MG TAB PO ONE ×2 (20:00→21:00)
[2017-05-08 20:23] VITALS: BP 197/103
[2017-05-08 22:43] VITALS: BP 144/74
--- NOTE | 2017-05-09 09:42 | ECGEPIP ---
Stationary ECG Study [facility] - ED Test Date: 2017-05-08 Pat Name: GUILLERMO BEARDEN Department: Room: - Gender: F Smog Technician: shaneka : 1970 Requested By: Mirna Cramer Order Number: [id number] Reading MD: Emely Scherer Measurements Intervals [place] Rate: 99 P: 74 KS: 143 QRS: 58 QRSD: 90 T: 50 QT: 358 QTc: 459 Interpretive Statements SINUS RHYTHM LEFT ATRIAL ENLARGEMENT MINIMAL ST DEPRESSION Electronically Signed On 05-09-2017 9:41:54 EDT by Emely Scherer
== END 2017-05-08 22:51 | disposition left against medical advice (07) ==
LOC: M ED 17:17
DX: I10 Essential (primary) hypertension (principal); J42 Unspecified chronic bronchitis; R06.2 Wheezing; G35 Multiple sclerosis; Z72.0 Tobacco use; Z79.899 Other long term (current) drug therapy; Z91.018 Allergy to other foods
CPT/HCPCS: 71010; 80048; 80076; 82550; 82553; 83880; 84439; 84443; 84484; 85025; 93005; 93041; 94760; 96365; 99285; J2930

== ENCOUNTER → 2017-06-15 | Outpatient (REF) | payer MEDICARE, MEDICAID ==
[2017-06-15 18:35] LABS: BLOOD UREA NITROGEN 13 MG/DL (7-18); CREATININE FOR GFR 0.57 MG/DL (0.55-1.02); GLOMERULAR FILTRATION RATE > 60.0 (>58)
[2017-06-15 18:46] LABS: BASO # 0.1 10^3/uL (0.0-0.2); BASO % 0.5 % (0.0-1.0); EOS # 0.2 10^3/uL (0.0-0.50); EOS % 1.7 % (0.0-3.0); IMMATURE GRANULOCYTE % 0.4 % (0-0); LYMPH # 2.2 10^3/uL (1.5-4.5); LYMPH % 20.7 % (24.0-44.0); MEAN CORPUSCULAR HEMOGLOBIN 30.8 pg (27.0-33.0); MEAN CORPUSCULAR HGB CONC 33.5 g/dl (32.0-36.5); MEAN CORPUSCULAR VOLUME 91.9 fl (80.0-96.0); MONO # 0.6 10^3/uL (0.0-0.8); MONO % 5.8 % (0.0-5.0); NEUTROPHILS # 7.4 10^3/uL (1.8-7.7); NEUTROPHILS % 70.9 % (36.0-66.0); PLATELET COUNT, AUTOMATED 290 10^3/uL (150-450); RED CELL DISTRIBUTION WIDTH 13.5 % (11.5-14.5); WHITE BLOOD COUNT 10.5 10^3/uL (4.0-10.0)
[2017-06-15 18:51] LABS: CALCIUM OXALATE CRYSTALS LARGE
[2017-06-15 18:53] LABS: ADD MORPHOLOGY? NO
== END ==
LOC: M LABNEURO 15:22
PROVIDERS: ATTEND Psychiatry & Neurology Neurology
DX: N39.0 Urinary tract infection, site not specified (principal); I10 Essential (primary) hypertension

== ENCOUNTER → 2017-12-11 | Outpatient (REF) | payer MEDICARE, MEDICAID ==
[2017-12-11 13:09] LABS: BASO # 0.1 10^3/uL (0.0-0.2); BASO % 0.7 % (0.0-1.0); EOS # 0.3 10^3/uL (0.0-0.50); EOS % 2.5 % (0.0-3.0); HEMATOCRIT 48.8 % (36.0-47.0); HEMOGLOBIN 16.1 g/dl (12.0-15.5); IMMATURE GRANULOCYTE % 0.3 % (0-3.0); LYMPH # 2.5 10^3/uL (1.5-4.5); LYMPH % 23.3 % (24.0-44.0); MEAN CORPUSCULAR HEMOGLOBIN 30.8 pg (27.0-33.0); MEAN CORPUSCULAR VOLUME 93.3 fl (80.0-96.0); MONO # 0.7 10^3/uL (0.0-0.8); MONO % 6.2 % (0.0-5.0); NEUTROPHILS # 7.2 10^3/uL (1.8-7.7); PLATELET COUNT, AUTOMATED 337 10^3/uL (150-450); RED BLOOD COUNT 5.23 10^6/uL (4.00-5.40); RED CELL DISTRIBUTION WIDTH 13.6 % (11.5-14.5); WHITE BLOOD COUNT 10.7 10^3/uL (4.0-10.0)
[2017-12-11 13:32] LABS: ALBUMIN 3.9 GM/DL (3.2-5.2); ALBUMIN/GLOBULIN RATIO 1.08 (1.00-1.93); ALKALINE PHOSPHATASE 96 U/L (45-117); ALT/SGPT 32 U/L (12-78); ANION GAP 4 MEQ/L (8-16); AST/SGOT 15 U/L (7-37); BILIRUBIN,TOTAL 0.6 MG/DL (0.2-1.0); BLOOD UREA NITROGEN 10 MG/DL (7-18); CALCIUM LEVEL 9.4 MG/DL (8.5-10.1); CARBON DIOXIDE LEVEL 31 MEQ/L (21-32); CHLORIDE LEVEL 105 MEQ/L (98-107); CHOLESTEROL LEVEL 236 MG/DL (<200); CHOLESTEROL RISK RATIO 5.244 (<5); CREATININE FOR GFR 0.55 MG/DL (0.55-1.30); FREE T4 0.96 NG/DL (0.76-1.46); GLOMERULAR FILTRATION RATE > 60.0 (>58); GLUCOSE, FASTING 109 MG/DL (70-100); HDL CHOLESTEROL 45 MG/DL (>40); LDL CHOLESTEROL 160.8 MG/DL (<100); NON-HDL-C 191 MG/DL; POTASSIUM SERUM 4.7 MEQ/L (3.5-5.1); SODIUM LEVEL 140 MEQ/L (136-145); THYROID STIMULATING HORMONE 0.966 uIU/ML (0.358-3.740); TOTAL PROTEIN 7.5 GM/DL (6.4-8.2); TRIGLYCERIDES LEVEL 151 MG/DL (<150)
[2017-12-11 13:33] LABS: ESTIMATED AVERAGE GLUCOSE 137 MG/DL (60-110); HEMOGLOBIN A1c 6.4 %
== END ==
LOC: M LABDRWAD 12:28
DX: I10 Essential (primary) hypertension (principal); R73.9 Hyperglycemia, unspecified; M54.9 Dorsalgia, unspecified
CPT/HCPCS: 84443

== ENCOUNTER → 2018-02-13 | Outpatient (REF) | payer MEDICARE, MEDICAID ==
[2018-02-13 14:29] LABS: BASO % 0.3 % (0.0-1.0); EOS % 0.3 % (0.0-3.0); HEMATOCRIT 44.7 % (36.0-47.0); HEMOGLOBIN 15.2 g/dl (12.0-15.5); IMMATURE GRANULOCYTE % 0.6 % (0-3.0); LYMPH # 1.1 10^3/uL (1.5-4.5); LYMPH % 7.3 % (24.0-44.0); MEAN CORPUSCULAR HEMOGLOBIN 30.9 pg (27.0-33.0); MEAN CORPUSCULAR VOLUME 90.9 fl (80.0-96.0); MONO # 0.5 10^3/uL (0.0-0.8); MONO % 3.4 % (0.0-5.0); NEUTROPHILS # 13.7 10^3/uL (1.8-7.7); NEUTROPHILS % 88.1 % (36.0-66.0); PLATELET COUNT, AUTOMATED 328 10^3/uL (150-450); RED BLOOD COUNT 4.92 10^6/uL (4.00-5.40); RED CELL DISTRIBUTION WIDTH 13.1 % (11.5-14.5); WHITE BLOOD COUNT 15.6 10^3/uL (4.0-10.0)
[2018-02-13 14:32] LABS: APPEARANCE, URINE CLEAR (CLEAR); BACTERIA, URINE AUTO NEGATIVE (NEGATIVE); BILIRUBIN, URINE AUTO NEGATIVE (NEGATIVE); BLOOD, URINE BLOOD NEGATIVE (NEGATIVE); COLOR, URINE YELLOW (YELLOW); GLUCOSE, URINE (UA) AUTO NEGATIVE (NEGATIVE); KETONE, URINE AUTO NEGATIVE (NEGATIVE); LEUKOCYTE ESTERASE, URINE AUTO NEGATIVE (NEGATIVE); NITRITE, URINE AUTO NEGATIVE (NEGATIVE); PROTEIN, URINE AUTO NEGATIVE (NEGATIVE); RBC, URINE AUTO 4 /HPF (0-3); SPECIFIC GRAVITY URINE AUTO 1.021 (1.002-1.035); SQUAMOUS EPITHELIAL CELL UR AU 0 /HPF (0-6); UROBILINOGEN, URINE AUTO 0.2 mg/dL (0.0-2.0); WBC, URINE AUTO 0 /HPF (0-3)
[2018-02-13 14:58] LABS: ALBUMIN 3.8 GM/DL (3.2-5.2); ALBUMIN/GLOBULIN RATIO 1.03 (1.00-1.93); ALKALINE PHOSPHATASE 99 U/L (45-117); ALT/SGPT 46 U/L (12-78); ANION GAP 8 MEQ/L (8-16); AST/SGOT 26 U/L (7-37); BILIRUBIN,TOTAL 0.6 MG/DL (0.2-1.0); BLOOD UREA NITROGEN 12 MG/DL (7-18); CALCIUM LEVEL 8.7 MG/DL (8.5-10.1); CARBON DIOXIDE LEVEL 28 MEQ/L (21-32); CHLORIDE LEVEL 104 MEQ/L (98-107); CREATININE FOR GFR 0.69 MG/DL (0.55-1.30); FERRITIN 106 NG/ML (8-252); FREE T4 1.01 NG/DL (0.76-1.46); GLOMERULAR FILTRATION RATE > 60.0 (>58); GLUCOSE, FASTING 122 MG/DL (70-100); IRON (FE) 83 UG/DL (50-170); PERCENT SATURATION 24.3 % (13.2-45.0); SODIUM LEVEL 140 MEQ/L (136-145); THYROID STIMULATING HORMONE 0.466 uIU/ML (0.358-3.740); TOTAL IRON BINDING CAPACITY 341 UG/DL (250-450); TOTAL PROTEIN 7.5 GM/DL (6.4-8.2)
[2018-02-13 15:05] LABS: FOLATE 13.8 NG/ML; VITAMIN B12 LEVEL 300 PG/ML
[2018-02-13 15:47] LABS: TOTAL 25(OH) VITAMIN D 7.2 NG/ML (30.0-100.0)
[2018-02-16 10:19] LABS: VITAMIN B1 LEVEL WHOLE BLOOD 171.1 nmol/L (66.5-200.0); VITAMIN B6,PYRIDOXAL PHOSPHATE 3.9 ug/L (2.0-32.8)
[2018-02-16 14:16] LABS: VITAMIN E(ALPHA TOCOPHEROL) 11.9 mg/L (7.0-25.1); VITAMIN E(GAMMA TOCOPHEROL) 1.7 mg/L (0.5-5.5)
== END ==
LOC: M LABNEURO 13:15
DX: G35 Multiple sclerosis (principal); E07.9 Disorder of thyroid, unspecified; D50.9 Iron deficiency anemia, unspecified
CPT/HCPCS: 82746

== ENCOUNTER 2018-03-11 04:03 | Emergency (ER) | payer MEDICARE, MEDICAID ==
[2018-03-11] MEDS: IPRATROPIUM 0.5MG/ALBUTEROL 2.5MG INH SOL UD 3ML (DUONEB)(J7620) NEB ×3 (06:26→06:27)
[2018-03-11] MEDS: dexameTHASONE 20 MG/5 ML VIAL (J1100) IV (06:38)
[2018-03-11] MEDS: MORPHINE 4 MG/ML 1ML VIAL/SYRINGE (J2270) IV (06:38)
== END 2018-03-11 07:31 | disposition home or self-care (01) ==
LOC: M ED 04:03
DX: S22.32XA Fracture of one rib, left side, initial encounter for closed fracture (principal); W18.2XXA Fall in (into) shower or empty bathtub, initial encounter; Y92.002 Bathroom of unspecified non-institutional (private) residence as the place of occurrence of the external cause; R07.1 Chest pain on breathing; J44.9 Chronic obstructive pulmonary disease, unspecified; R06.02 Shortness of breath; F32.9 Major depressive disorder, single episode, unspecified; K21.9 Gastro-esophageal reflux disease without esophagitis; Z87.891 Personal history of nicotine dependence; Z91.030 Bee allergy status; Z91.018 Allergy to other foods; Z96.642 Presence of left artificial hip joint; Z79.899 Other long term (current) drug therapy; Z79.51 Long term (current) use of inhaled steroids
CPT/HCPCS: J2270

== ENCOUNTER 2018-08-01 10:53 | Outpatient (CLI) | payer MEDICARE, MEDICAID ==
[2018-08-01] MEDS: methylPREDNISolone 1,000 MG, VIAL MATE ADAPTER 1 EACH in D5W 250 ML IV (12:34)
[2018-08-01] MEDS: **hydrALAZINE** 10 MG TAB PO (15:00)
== END 2018-08-01 17:01 | disposition home or self-care (01) ==
LOC: M OPCLI4PV 10:53 → M MSPAV 11:05 → M OPCLI4PV 17:01
DX: G35 Multiple sclerosis (principal)
CPT/HCPCS: J2930

== ENCOUNTER 2018-08-02 10:10 | Outpatient (CLI) | payer MEDICARE, MEDICAID ==
[2018-08-02] MEDS: methylPREDNISolone 1,000 MG, VIAL MATE ADAPTER 1 EACH in D5W 250 ML IV (12:01)
== END 2018-08-02 14:03 | disposition home or self-care (01) ==
LOC: M OPCLI4PV 10:10 → M MSPAV 10:29 → M OPCLI4PV 14:03
DX: G35 Multiple sclerosis (principal)
CPT/HCPCS: J2930

== ENCOUNTER 2018-08-03 09:15 | Outpatient (CLI) | payer MEDICARE, MEDICAID ==
[2018-08-03] MEDS: methylPREDNISolone 1,000 MG, VIAL MATE ADAPTER 1 EACH in D5W 250 ML IV (10:02)
== END 2018-08-03 11:35 | disposition home or self-care (01) ==
LOC: M OPCLI4PV 09:15 → M PED 09:30 → M OPCLI4PV 11:35
DX: G35 Multiple sclerosis (principal)
CPT/HCPCS: J2930

== ENCOUNTER 2018-08-04 09:32 | Outpatient (CLI) | payer MEDICARE, MEDICAID ==
[2018-08-04] MEDS: methylPREDNISolone 1,000 MG, VIAL MATE ADAPTER 1 EACH in D5W 250 ML IV (11:02)
== END 2018-08-04 12:20 | disposition home or self-care (01) ==
LOC: M OPCLI4PV 09:32 → M PED 09:50 → M OPCLI4PV 12:20
DX: G35 Multiple sclerosis (principal)
CPT/HCPCS: J2930

== ENCOUNTER 2018-08-05 09:03 | Outpatient (CLI) | payer MEDICARE, MEDICAID ==
[2018-08-05] MEDS: methylPREDNISolone 1,000 MG, VIAL MATE ADAPTER 1 EACH in D5W 250 ML IV (10:12)
== END 2018-08-05 11:15 | disposition home or self-care (01) ==
LOC: M OPCLI4PV 09:03 → M PED 09:22 → M OPCLI4PV 11:15
DX: G35 Multiple sclerosis (principal)
CPT/HCPCS: J2930

== ENCOUNTER 2019-05-02 12:25 | Emergency (ER) | payer MEDICAID, MEDICARE ==
[~2019-05-02] VITALS: Ht 160 cm; Wt 90.9 kg
[~2019-05-02 12:25] MED LIST changes: -ARIP15TAB PO; +ARIP1TAB10 PO; -CLON1TAB PO; +CLON1TAB8 PO; -DRIS50002 PO; +DRIS50003 PO; +GABA-1171 PO; -GABA-279 PO; +HYDR-2541 PO; +IPRA0.00 INH; -IPRASOL4 INH; +KETO10TAB PO; +LISI40TA52 PO; -LISI40TAB PO; +PRED20TA PO
[2019-05-02] MEDS ORDERED: BACL1TAB9 PO (12:36)
[2019-05-02] MEDS ORDERED: GLAT1INJ SC (12:36)
[2019-05-02 13:27] LABS: BASO % 0.4 % (0.0-1.0); EOS # 0.2 10^3/uL (0.0-0.50); EOS % 2.5 % (0.0-3.0); HEMATOCRIT 49.2 % (36.0-47.0); HEMOGLOBIN 16.8 g/dl (12.0-15.5); LYMPH # 2.1 10^3/uL (1.5-4.5); LYMPH % 23.1 % (24.0-44.0); MEAN CORPUSCULAR HEMOGLOBIN 31.8 pg (27.0-33.0); MEAN CORPUSCULAR HGB CONC 34.1 g/dl (32.0-36.5); MONO # 0.7 10^3/uL (0.0-0.8); MONO % 7.8 % (0.0-5.0); NEUTROPHILS # 5.9 10^3/uL (1.8-7.7); NEUTROPHILS % 65.9 % (36.0-66.0); PLATELET COUNT, AUTOMATED 315 10^3/uL (150-450); RED BLOOD COUNT 5.29 10^6/uL (4.00-5.40); WHITE BLOOD COUNT 8.9 10^3/uL (4.0-10.0)
[2019-05-02 13:44] LABS: BLOOD UREA NITROGEN 11 MG/DL (7-18); CALCIUM LEVEL 9.1 MG/DL (8.5-10.1); CARBON DIOXIDE LEVEL 28 MEQ/L (21-32); CHLORIDE LEVEL 106 MEQ/L (98-107); GLOMERULAR FILTRATION RATE > 60.0 (>58); GLUCOSE, FASTING 107 MG/DL (70-100); POTASSIUM SERUM 3.9 MEQ/L (3.5-5.1); SODIUM LEVEL 139 MEQ/L (136-145)
--- NOTE | 2019-05-02 14:09 | REP ---
PA and lateral chest: Comparison is 08/13/2015. The lung murphy are clear. The cardiac size is normal. The ba, mediastinum, and skeletal structures are unremarkable. Impression: Negative PA and lateral chest. There is no interval change. Electronically Signed by Antwon Armendariz MD 05/02/2019 02:01 P
[2019-05-02] MEDS ORDERED: VALSARTAN 40MG TABLET (DIOVAN) PO ONE (14:15)
[2019-05-02] MEDS ORDERED: CHLORTHALIDONE 25 MG TAB PO ONE ×2 (14:15→14:45)
[2019-05-02] MEDS ORDERED: methylPREDNISolone 1,000 MG, VIAL MATE ADAPTER 1 EACH in D5W 250 ML IV ONE (14:15)
[2019-05-02] MEDS ORDERED: IRBE300T10 PO (14:44)
[2019-05-02] MEDS ORDERED: CHLO125TA PO (14:44)
[2019-05-02] MEDS ORDERED: ALBU83IN INH (14:44)
[2019-05-02] MEDS ORDERED: INCR1INH INH (14:44)
[2019-05-02] MEDS ORDERED: NEBIVOLOL 5 MG TAB (BYSTOLIC) PO ONE (14:45)
[2019-05-02] MEDS ORDERED: IRBESARTAN 150 MG TAB PO ONE (14:45)
[2019-05-02] MEDS ORDERED: BYST10TA2 PO (14:46)
[2019-05-02] MEDS ORDERED: NIFEdipine 10 MG CAP PO ONE (16:30)
[2019-05-02 16:34] VITALS: BP 206/119
[2019-05-02 17:09] VITALS: BP 144/80
== END 2019-05-02 17:34 | disposition home or self-care (01) ==
LOC: M ED 12:25
DX: I10 Essential (primary) hypertension (principal); G35 Multiple sclerosis; F33.9 Major depressive disorder, recurrent, unspecified; F40.00 Agoraphobia, unspecified; Z79.899 Other long term (current) drug therapy; Z91.018 Allergy to other foods; Z91.030 Bee allergy status; F17.210 Nicotine dependence, cigarettes, uncomplicated
CPT/HCPCS: 71046; 80048; 81001; 82306; 85025; 96365; 99284; J2930

== ENCOUNTER 2019-05-03 15:29 | Outpatient (CLI) | payer MEDICARE, MEDICAID ==
[~2019-05-03] VITALS: Ht 160 cm; Wt 86.3 kg
[2019-05-03] MEDS ORDERED: methylPREDNISolone 1,000 MG, VIAL MATE ADAPTER 1 EACH in D5W 250 ML IV ONE (16:00)
[2019-05-03 16:10] VITALS: BP 164/92
[2019-05-03 18:00] VITALS: BP 198/100
== END 2019-05-03 18:00 | disposition home or self-care (01) ==
LOC: M INFU 15:29
PROVIDERS: ATTEND Psychiatry & Neurology Neurology
DX: G35 Multiple sclerosis (principal); G25.81 Restless legs syndrome; I10 Essential (primary) hypertension; J44.9 Chronic obstructive pulmonary disease, unspecified; F32.1 Major depressive disorder, single episode, moderate; E78.5 Hyperlipidemia, unspecified
CPT/HCPCS: 36415; 80053; 83735; 84439; 84443; 85025; 96365; J2930

== ENCOUNTER → 2019-05-03 | Outpatient (CLI) | payer MEDICARE ==
[~2019-05-03] MED LIST changes: +BACL1TAB9 PO; +BYST10TA2 PO; +CHLO125TA PO; +GLAT1INJ SC; +INCR1INH INH; +IRBE300T10 PO
[2019-05-03 17:00] LABS: BASO % 0.1 % (0.0-1.0); HEMATOCRIT 47.4 % (36.0-47.0); HEMOGLOBIN 16.3 g/dl (12.0-15.5); LYMPH % 4.3 % (24.0-44.0); MEAN CORPUSCULAR HEMOGLOBIN 31.9 pg (27.0-33.0); MEAN CORPUSCULAR HGB CONC 34.4 g/dl (32.0-36.5); MEAN CORPUSCULAR VOLUME 92.8 fl (80.0-96.0); MONO # 1.3 10^3/uL (0.0-0.8); MONO % 5.6 % (0.0-5.0); NEUTROPHILS # 21.1 10^3/uL (1.8-7.7); NEUTROPHILS % 89.3 % (36.0-66.0); PLATELET COUNT, AUTOMATED 354 10^3/uL (150-450); RED BLOOD COUNT 5.11 10^6/uL (4.00-5.40); WHITE BLOOD COUNT 23.7 10^3/uL (4.0-10.0)
[2019-05-03 18:08] LABS: ALBUMIN 3.9 GM/DL (3.2-5.2); ALT/SGPT 30 U/L (12-78); BILIRUBIN,TOTAL 0.6 MG/DL (0.2-1.0); BLOOD UREA NITROGEN 22 MG/DL (7-18); CALCIUM LEVEL 9.8 MG/DL (8.5-10.1); CARBON DIOXIDE LEVEL 30 MEQ/L (21-32); CHLORIDE LEVEL 101 MEQ/L (98-107); FREE T4 0.97 NG/DL (0.76-1.46); GLOMERULAR FILTRATION RATE > 60.0 (>58); GLUCOSE, FASTING 126 MG/DL (70-100); MAGNESIUM LEVEL 2.1 MG/DL (1.8-2.4); POTASSIUM SERUM 3.8 MEQ/L (3.5-5.1); SODIUM LEVEL 139 MEQ/L (136-145); THYROID STIMULATING HORMONE 0.161 uIU/ML (0.358-3.740); TOTAL PROTEIN 7.5 GM/DL (6.4-8.2)
== END ==
LOC: M LAB 15:39
PROVIDERS: ATTEND Nurse Practitioner Family
DX: G25.81 Restless legs syndrome (principal); G35 Multiple sclerosis; I10 Essential (primary) hypertension; J44.9 Chronic obstructive pulmonary disease, unspecified; F32.1 Major depressive disorder, single episode, moderate; E78.5 Hyperlipidemia, unspecified

== ENCOUNTER 2019-05-04 09:40 | Outpatient (CLI) | payer MEDICARE ==
[~2019-05-04] VITALS: Ht 160 cm; Wt 85.0 kg
[2019-05-04 09:56] VITALS: BP 194/91
[2019-05-04] MEDS ORDERED: methylPREDNISolone 1,000 MG, VIAL MATE ADAPTER 1 EACH in D5W 250 ML IV ONE (11:00)
[2019-05-04 12:05] VITALS: BP 184/87
== END 2019-05-04 12:10 | disposition home or self-care (01) ==
LOC: M OPCLIPED 09:40 → M PED 09:55 → M OPCLIPED 12:10
PROVIDERS: ATTEND Psychiatry & Neurology Neurology
DX: G35 Multiple sclerosis (principal)
CPT/HCPCS: 96374; J2930

== ENCOUNTER 2019-05-05 10:30 | Outpatient (CLI) | payer MEDICARE ==
[~2019-05-05] VITALS: Ht 160 cm; Wt 85.0 kg
[~2019-05-05 10:30] MED LIST changes: -SULF1TAB72 PO; +SULF400T14 PO; -VALS1TAB49 PO; +VALS40TA9 PO
[2019-05-05 10:46] VITALS: BP 141/101
[2019-05-05] MEDS ORDERED: methylPREDNISolone 1,000 MG, VIAL MATE ADAPTER 1 EACH in D5W 250 ML IV ONE (11:00)
[2019-05-05 12:34] VITALS: BP 190/100
[2019-05-05 13:20] VITALS: BP 182/100
[2019-05-05 14:15] VITALS: BP 162/88
== END 2019-05-05 14:20 | disposition home or self-care (01) ==
LOC: M OPCLI4PV 10:30 → M MSPAV 10:32 → M OPCLI4PV 14:20
PROVIDERS: ATTEND Psychiatry & Neurology Neurology
DX: G35 Multiple sclerosis (principal)
CPT/HCPCS: 96374; J2930

== ENCOUNTER 2019-05-06 15:24 | Outpatient (CLI) | payer MEDICARE ==
[~2019-05-06] VITALS: Ht 160 cm; Wt 83.6 kg
[~2019-05-06 15:24] MED LIST changes: +SULF1TAB72 PO; -SULF400T14 PO; +VALS1TAB49 PO; -VALS40TA9 PO
[2019-05-06 15:40] VITALS: BP 170/102
[2019-05-06] MEDS ORDERED: methylPREDNISolone 1,000 MG, VIAL MATE ADAPTER 1 EACH in D5W 250 ML IV ONE (16:30)
[2019-05-06 17:30] VITALS: BP 170/98
== END 2019-05-06 17:40 | disposition home or self-care (01) ==
LOC: M INFU 15:24
PROVIDERS: ATTEND Psychiatry & Neurology Neurology
DX: G35 Multiple sclerosis (principal)
CPT/HCPCS: 96365; J2930

== ENCOUNTER → 2019-06-20 | Outpatient (REF) | payer MEDICARE ==
[2019-06-20 13:33] LABS: BLOOD UREA NITROGEN 18 MG/DL (7-18); CALCIUM LEVEL 9.5 MG/DL (8.5-10.1); CARBON DIOXIDE LEVEL 34 MEQ/L (21-32); CHLORIDE LEVEL 103 MEQ/L (98-107); CREATININE FOR GFR 0.81 MG/DL (0.55-1.30); GLOMERULAR FILTRATION RATE > 60.0 (>58); GLUCOSE, FASTING 114 MG/DL (70-100); POTASSIUM SERUM 4.4 MEQ/L (3.5-5.1); SODIUM LEVEL 142 MEQ/L (136-145)
== END ==
LOC: M LABDRWAD 12:42
PROVIDERS: ATTEND Physician Assistant
DX: I10 Essential (primary) hypertension (principal)

== ENCOUNTER → 2019-07-09 | Outpatient (CLI) | payer MEDICARE ==
[2019-07-09 09:29] LABS: BLOOD UREA NITROGEN 21 MG/DL (7-18); CALCIUM LEVEL 9.1 MG/DL (8.5-10.1); CARBON DIOXIDE LEVEL 30 MEQ/L (21-32); CHLORIDE LEVEL 105 MEQ/L (98-107); CREATININE FOR GFR 0.69 MG/DL (0.55-1.30); GLOMERULAR FILTRATION RATE > 60.0 (>58); GLUCOSE, FASTING 129 MG/DL (70-100); POTASSIUM SERUM 4.2 MEQ/L (3.5-5.1); SODIUM LEVEL 140 MEQ/L (136-145)
== END ==
LOC: M LAB 08:34
PROVIDERS: ATTEND Orthopaedic Surgery Hand Surgery
DX: Z51.81 Encounter for therapeutic drug level monitoring (principal); Z79.899 Other long term (current) drug therapy

== ENCOUNTER → 2019-09-20 | Outpatient (CLI) | payer MEDICARE ==
[~2019-09-20] MED LIST changes: -IRBE300T10 PO; +IRBE300T7 PO; -SULF1TAB72 PO; +SULF400T14 PO; -VALS1TAB49 PO; +VALS40TA9 PO
--- NOTE | 2019-09-20 14:23 | REP ---
CHEST, TWO VIEWS: COMPARISON: 05/02/2019 There is no evidence of acute infiltrate. No pleural effusion is seen. The heart is normal in size. The mediastinal silhouette is unremarkable. The visualized osseous structures are intact. There are mild degenerative changes of the spine with a stable, mild compression deformity of L1. IMPRESSION: No acute pulmonary disease. Electronically Signed by Antwon Carranza MD 09/21/2019 03:21 P
== END ==
LOC: M CLY 11:12
PROVIDERS: ATTEND Nurse Practitioner Family
DX: J40 Bronchitis, not specified as acute or chronic (principal)
CPT/HCPCS: 71046; 94640; G0463

== ENCOUNTER → 2020-04-01 | Outpatient (REF) | payer MEDICARE ==
[~2020-04-01] MED LIST changes: +OXYC-1 PO; -OXYC15TA76 PO
[2020-04-01 19:35] LABS: BLOOD UREA NITROGEN 19 MG/DL (7-18); CREATININE FOR GFR 0.88 MG/DL (0.55-1.30); GLOMERULAR FILTRATION RATE > 60.0 (>58)
== END ==
LOC: M LABDRWAD 17:06
PROVIDERS: ATTEND Psychiatry & Neurology Neurology
DX: I10 Essential (primary) hypertension (principal)

== ENCOUNTER → 2020-07-01 | Outpatient (CLI) | payer SELFPAY | LOC: M LABSMTC 11:09 | PROVIDERS: ATTEND Pediatrics | DX: Z20.828 Contact with and (suspected) exposure to other viral communicable diseases (principal) ==

== ENCOUNTER → 2021-01-12 | Outpatient (REF) | payer MEDICARE, MEDICAID ==
[~2021-01-12] MED LIST changes: +HYDR-3490 PO; -HYDR25TAB PO; +LABE100T4 PO; -LABE10TAB PO
[2021-01-12 13:43] LABS: BASO # 0.1 10^3/uL (0.0-0.2); BASO % 0.5 % (0.0-1.0); EOS # 0.3 10^3/uL (0.0-0.5); EOS % 2.6 % (0.0-3.0); HEMATOCRIT 49.3 % (36.0-47.0); HEMOGLOBIN 16.4 g/dl (12.0-15.5); LYMPH # 2.3 10^3/uL (1.5-5.0); LYMPH % 18.6 % (24.0-44.0); MEAN CORPUSCULAR HEMOGLOBIN 31.5 pg (27.0-33.0); MEAN CORPUSCULAR HGB CONC 33.3 g/dl (32.0-36.5); MEAN CORPUSCULAR VOLUME 94.6 fl (80.0-96.0); MONO # 0.8 10^3/uL (0.0-0.8); MONO % 6.2 % (2.0-8.0); NEUTROPHILS # 8.7 10^3/uL (1.5-8.5); NEUTROPHILS % 71.7 % (36.0-66.0); PLATELET COUNT, AUTOMATED 320 10^3/uL (150-450); RED BLOOD COUNT 5.21 10^6/uL (4.00-5.40); WHITE BLOOD COUNT 12.2 10^3/uL (4.0-10.0)
[2021-01-12 14:31] LABS: ALT/SGPT 26 U/L (12-78); BILIRUBIN,TOTAL 1.2 MG/DL (0.2-1.0); BLOOD UREA NITROGEN 14 MG/DL (7-18); CARBON DIOXIDE LEVEL 34 MEQ/L (21-32); CHLORIDE LEVEL 103 MEQ/L (98-107); CHOLESTEROL LEVEL 249 MG/DL (<200); CHOLESTEROL RISK RATIO 4.882 (<5); CREATININE FOR GFR 0.53 MG/DL (0.55-1.30); GLOMERULAR FILTRATION RATE > 60.0 (>51); GLUCOSE, FASTING 128 MG/DL (70-100); HDL CHOLESTEROL 51 MG/DL (>40); LDL CHOLESTEROL 154 MG/DL (<100); NON-HDL-C 198 MG/DL; POTASSIUM SERUM 4.4 MEQ/L (3.5-5.1); SODIUM LEVEL 141 MEQ/L (136-145); THYROID STIMULATING HORMONE 0.573 uIU/ML (0.358-3.740); TOTAL PROTEIN 7.3 GM/DL (6.4-8.2); TRIGLYCERIDES LEVEL 218 MG/DL (<150)
== END ==
LOC: M SFHCCLAY 07:53
PROVIDERS: ATTEND Nurse Practitioner Family
DX: J44.9 Chronic obstructive pulmonary disease, unspecified (principal); I10 Essential (primary) hypertension; F17.210 Nicotine dependence, cigarettes, uncomplicated; E66.9 Obesity, unspecified; G35 Multiple sclerosis
CPT/HCPCS: 80053; 80061; 84439; 84443; 85025; G0463

== ENCOUNTER → 2021-03-23 | Outpatient (CLI) | payer MEDICARE, MEDICAID ==
--- NOTE | 2021-03-23 09:44 | REP ---
INDICATION: PERSONAL H/O NICOTINE DEPEND. COMPARISON: Lung base images obtained during abdominal and pelvic CT scanning from an outside institution dated 06/06/2016 TECHNIQUE: Axial noncontrast images from the thoracic inlet to the upper abdomen using low-dose lung screening technique (LDCT). As per the protocol only lung window images were sent to the read station for interpretation. FINDINGS: There are no abnormal nodules, masses, or opacities. Grossly, the mediastinum and pulmonary ba are within normal limits. Grossly, the imaged upper abdomen and imaged osseous structures are within normal limits. IMPRESSION: Lung rads category 1 low-dose screening CT examination of the lungs. According to the revised Fleischner society criteria yearly lung CT screening is recommended if clinically relevant. <Electronically signed by Sumit Sagastume > 03/23/21 0071
== END ==
LOC: M RAD 08:29
PROVIDERS: ATTEND Physician Assistant
DX: Z87.891 Personal history of nicotine dependence (principal); Z12.2 Encounter for screening for malignant neoplasm of respiratory organs

== ENCOUNTER → 2021-03-26 | Outpatient (REF) | payer MEDICARE, MEDICAID | LOC: M LAB REF 12:57 | PROVIDERS: ATTEND Physician Assistant | DX: J44.1 Chronic obstructive pulmonary disease with (acute) exacerbation (principal) ==

== ENCOUNTER → 2021-08-12 | Outpatient (REF) | payer MEDICARE, MEDICAID ==
[2021-08-12 16:02] LABS: BASO # 0.1 10^3/uL (0.0-0.2); BASO % 0.5 % (0.0-1.0); EOS # 0.3 10^3/uL (0.0-0.5); EOS % 2.6 % (0.0-3.0); HEMATOCRIT 46.7 % (36.0-47.0); HEMOGLOBIN 15.5 g/dl (12.0-15.5); LYMPH # 2.3 10^3/uL (1.5-5.0); LYMPH % 24.5 % (24.0-44.0); MEAN CORPUSCULAR HEMOGLOBIN 31.4 pg (27.0-33.0); MEAN CORPUSCULAR HGB CONC 33.2 g/dl (32.0-36.5); MEAN CORPUSCULAR VOLUME 94.5 fl (80.0-96.0); MONO # 0.7 10^3/uL (0.0-0.8); MONO % 7.2 % (2.0-8.0); NEUTROPHILS # 6.1 10^3/uL (1.5-8.5); NEUTROPHILS % 64.9 % (36.0-66.0); PLATELET COUNT, AUTOMATED 313 10^3/uL (150-450); RED BLOOD COUNT 4.94 10^6/uL (4.00-5.40); WHITE BLOOD COUNT 9.5 10^3/uL (4.0-10.0)
[2021-08-12 16:33] LABS: ALBUMIN 3.9 GM/DL (3.2-5.2); ALT/SGPT 26 U/L (12-78); BILIRUBIN,TOTAL 1.6 MG/DL (0.2-1.0); BLOOD UREA NITROGEN 12 MG/DL (7-18); CALCIUM LEVEL 9.8 MG/DL (8.5-10.1); CARBON DIOXIDE LEVEL 32 MEQ/L (21-32); CHLORIDE LEVEL 104 MEQ/L (98-107); CHOLESTEROL LEVEL 260 MG/DL (<200); CHOLESTEROL RISK RATIO 5.416 (<5); GLOMERULAR FILTRATION RATE > 60.0 (>51); GLUCOSE, FASTING 114 MG/DL (70-100); HDL CHOLESTEROL 48 MG/DL (>40); LDL CHOLESTEROL 176 MG/DL (<100); NON-HDL-C 212 MG/DL; POTASSIUM SERUM 4.6 MEQ/L (3.5-5.1); SODIUM LEVEL 140 MEQ/L (136-145); TOTAL PROTEIN 7.5 GM/DL (6.4-8.2); TRIGLYCERIDES LEVEL 180 MG/DL (<150)
[2021-08-12 19:26] LABS: HEMOGLOBIN A1c 5.9 %
== END ==
LOC: M SFHCCLAY 07:06
PROVIDERS: ATTEND Nurse Practitioner Family
DX: R73.01 Impaired fasting glucose (principal); I10 Essential (primary) hypertension; F17.210 Nicotine dependence, cigarettes, uncomplicated
CPT/HCPCS: 80053; 80061; 83036; 85025; 90682; G0008; G0463

== ENCOUNTER 2022-01-29 09:26 | Emergency (ER) | payer MEDICARE, MEDICAID ==
[~2022-01-29] VITALS: Ht 157.5 cm; Wt 76.2 kg
[~2022-01-29 09:26] MED LIST changes: -FLUV100T2 PO; +FLUV100T25 PO
[2022-01-29] MEDS ORDERED: CARV25TA (09:38)
[2022-01-29] MEDS ORDERED: ATOR40TA75 (09:38)
[2022-01-29] MEDS ORDERED: AMLO1TAB25 (09:38)
[2022-01-29] MEDS ORDERED: VALS1TAB67 (09:38)
[2022-01-29 10:15] LABS: BASO # 0.1 10^3/uL (0.0-0.2); BASO % 0.5 % (0.0-1.0); EOS # 0.3 10^3/uL (0.0-0.5); EOS % 2.5 % (0.0-3.0); HEMATOCRIT 46.4 % (36.0-47.0); LYMPH # 2.2 10^3/uL (1.5-5.0); LYMPH % 18.1 % (24.0-44.0); MEAN CORPUSCULAR HEMOGLOBIN 31.6 pg (27.0-33.0); MEAN CORPUSCULAR HGB CONC 34.5 g/dl (32.0-36.5); MEAN CORPUSCULAR VOLUME 91.7 fl (80.0-96.0); MONO # 0.8 10^3/uL (0.0-0.8); MONO % 6.4 % (2.0-8.0); NEUTROPHILS # 8.8 10^3/uL (1.5-8.5); NEUTROPHILS % 72.3 % (36.0-66.0); PLATELET COUNT, AUTOMATED 303 10^3/uL (150-450); RED BLOOD COUNT 5.06 10^6/uL (4.00-5.40); WHITE BLOOD COUNT 12.1 10^3/uL (4.0-10.0)
[2022-01-29 10:27] LABS: INR 0.96; PROTHROMBIN TIME 13.2 SECONDS (12.7-14.5)
[2022-01-29 10:28] LABS: PARTIAL THROMBOPLASTIN TIME 35.3 SECONDS (25.9-37.0)
[2022-01-29 10:45] LABS: BLOOD UREA NITROGEN 8 MG/DL (7-18); CALCIUM LEVEL 9.2 MG/DL (8.5-10.1); CARBON DIOXIDE LEVEL 30 MEQ/L (21-32); CHLORIDE LEVEL 106 MEQ/L (98-107); CREATININE FOR GFR 0.59 MG/DL (0.55-1.30); GLOMERULAR FILTRATION RATE > 60.0 (>51); GLUCOSE, FASTING 106 MG/DL (70-100); POTASSIUM SERUM 3.8 MEQ/L (3.5-5.1); SODIUM LEVEL 140 MEQ/L (136-145)
[2022-01-29 15:31] VITALS: BP 160/77
== END 2022-01-29 15:36 | disposition home or self-care (01) ==
LOC: M ED 09:26
DX: G58.8 Other specified mononeuropathies (principal); G35 Multiple sclerosis; Z91.018 Allergy to other foods; Z91.030 Bee allergy status; Z79.899 Other long term (current) drug therapy; F17.210 Nicotine dependence, cigarettes, uncomplicated; F12.20 Cannabis dependence, uncomplicated

== ENCOUNTER → 2022-06-01 | Outpatient (CLI) | payer MEDICARE, MEDICAID ==
[~2022-06-01] MED LIST changes: +ALBU2.5V10 INH; -ALBU83IN INH; +AMLO1TAB25; +ATOR40TA75; +CARV25TA; -LABE100T4 PO; +LABE100T6 PO; +VALS1TAB67
== END ==
LOC: M RAD 09:49
PROVIDERS: ATTEND Internal Medicine Pulmonary Disease
DX: Z12.2 Encounter for screening for malignant neoplasm of respiratory organs (principal); Z87.891 Personal history of nicotine dependence

== ENCOUNTER → 2022-07-01 | Outpatient (CLI) | payer MEDICARE, MEDICAID ==
[2022-07-01 10:21] LABS: BASO % 0.5 % (0.0-1.0); EOS # 0.2 10^3/uL (0.0-0.5); EOS % 2.7 % (0.0-3.0); HEMATOCRIT 46.5 % (36.0-47.0); HEMOGLOBIN 15.9 g/dl (12.0-15.5); LYMPH # 1.2 10^3/uL (1.5-5.0); LYMPH % 15.2 % (24.0-44.0); MEAN CORPUSCULAR HEMOGLOBIN 31.7 pg (27.0-33.0); MEAN CORPUSCULAR HGB CONC 34.2 g/dl (32.0-36.5); MEAN CORPUSCULAR VOLUME 92.8 fl (80.0-96.0); MONO # 0.6 10^3/uL (0.0-0.8); MONO % 7.5 % (2.0-8.0); NEUTROPHILS % 73.7 % (36.0-66.0); PLATELET COUNT, AUTOMATED 285 10^3/uL (150-450); RED BLOOD COUNT 5.01 10^6/uL (4.00-5.40); WHITE BLOOD COUNT 8.1 10^3/uL (4.0-10.0)
[2022-07-01 11:15] LABS: ALBUMIN 3.9 GM/DL (3.2-5.2); ALT/SGPT 27 U/L (12-78); BILIRUBIN,TOTAL 2.4 MG/DL (0.2-1.0); BLOOD UREA NITROGEN 7 MG/DL (7-18); CALCIUM LEVEL 9.4 MG/DL (8.5-10.1); CARBON DIOXIDE LEVEL 29 MEQ/L (21-32); CHLORIDE LEVEL 105 MEQ/L (98-107); GLOMERULAR FILTRATION RATE > 60.0 (>51); GLUCOSE, FASTING 108 MG/DL (70-100); SODIUM LEVEL 140 MEQ/L (136-145)
[2022-07-01 12:07] LABS: HEPATITIS B SURFACE ANTIBODY NEGATIVE (POSITIVE); TOTAL 25(OH) VITAMIN D 17.7 NG/ML (30.0-100.0)
[2022-07-01 12:17] LABS: HEPATITIS B SURFACE ANTIGEN NEGATIVE (NEGATIVE)
[2022-07-01 12:46] LABS: HEPATITIS C VIRUS ABY INDEX < 0.0 INDEX (<0.8)
== END ==
LOC: M RAD 09:14
PROVIDERS: ATTEND Psychiatry & Neurology Neurology
DX: G35 Multiple sclerosis (principal); E55.9 Vitamin D deficiency, unspecified; Z79.899 Other long term (current) drug therapy

== ENCOUNTER → 2022-07-06 | Outpatient (CLI) | payer MEDICARE, MEDICAID | LOC: M WHC 08:17 | PROVIDERS: ATTEND Nurse Practitioner Family | DX: Z12.31 Encounter for screening mammogram for malignant neoplasm of breast (principal) ==

== ENCOUNTER 2022-07-18 16:06 | Outpatient (CLI) | payer MEDICARE, MEDICAID ==
[~2022-07-18] VITALS: Ht 157.5 cm; Wt 68.2 kg
[2022-07-18 16:15] VITALS: BP 146/71
[2022-07-18] MEDS ORDERED: methylPREDNISolone 1,000 MG, VIAL MATE ADAPTER 1 EACH in NS 250 ML IV ONE (16:30)
[2022-07-18 17:45] VITALS: BP 140/75
== END 2022-07-18 17:45 | disposition home or self-care (01) ==
LOC: M INFU 16:06
PROVIDERS: ATTEND Psychiatry & Neurology Neurology
DX: G35 Multiple sclerosis (principal); Z91.030 Bee allergy status; Z91.018 Allergy to other foods
CPT/HCPCS: 96365; J2930

== ENCOUNTER 2022-07-19 15:51 | Outpatient (CLI) | payer MEDICARE, MEDICAID ==
[~2022-07-19] VITALS: Ht 157.5 cm; Wt 68.0 kg
[2022-07-19 16:00] VITALS: BP 168/87
[2022-07-19] MEDS ORDERED: methylPREDNISolone 1,000 MG, VIAL MATE ADAPTER 1 EACH in NS 250 ML IV ONE (16:30)
== END 2022-07-19 17:05 | disposition home or self-care (01) ==
LOC: M INFU 15:51
PROVIDERS: ATTEND Psychiatry & Neurology Neurology
DX: G35 Multiple sclerosis (principal); Z91.030 Bee allergy status; Z91.02 Food additives allergy status
CPT/HCPCS: 96365; J2930

== ENCOUNTER 2022-07-20 15:39 | Outpatient (CLI) | payer MEDICARE, MEDICAID ==
[~2022-07-20] VITALS: Ht 157.5 cm; Wt 67.2 kg
[2022-07-20 15:50] VITALS: BP 162/81
[2022-07-20] MEDS ORDERED: methylPREDNISolone 1,000 MG, VIAL MATE ADAPTER 1 EACH in NS 250 ML IV ONE (16:30)
[2022-07-20 17:10] VITALS: BP 118/60
== END 2022-07-20 17:00 | disposition home or self-care (01) ==
LOC: M INFU 15:39
PROVIDERS: ATTEND Psychiatry & Neurology Neurology
DX: G35 Multiple sclerosis (principal); Z91.030 Bee allergy status; Z91.02 Food additives allergy status
CPT/HCPCS: 96365; J2930

== ENCOUNTER 2022-07-21 15:50 | Outpatient (CLI) | payer MEDICARE, MEDICAID ==
[~2022-07-21] VITALS: Ht 157.5 cm; Wt 67.0 kg
[2022-07-21] MEDS ORDERED: methylPREDNISolone 1,000 MG, VIAL MATE ADAPTER 1 EACH in NS 250 ML IV ONE (16:00)
[2022-07-21 16:12] VITALS: BP 149/70
[2022-07-21 17:24] VITALS: BP 134/68
== END 2022-07-21 17:25 ==
LOC: M INFU 15:50
PROVIDERS: ATTEND Psychiatry & Neurology Neurology
DX: G35 Multiple sclerosis (principal); Z91.030 Bee allergy status; Z91.018 Allergy to other foods
CPT/HCPCS: 96365; J2930

== ENCOUNTER 2022-07-22 15:30 | Outpatient (CLI) | payer MEDICARE, MEDICAID ==
[~2022-07-22] VITALS: Ht 157.5 cm; Wt 67.0 kg
[2022-07-22 15:40] VITALS: BP 151/75
[2022-07-22] MEDS ORDERED: methylPREDNISolone 1,000 MG, VIAL MATE ADAPTER 1 EACH in NS 250 ML IV ONE (16:00)
[2022-07-22 16:58] VITALS: BP 139/68
== END 2022-07-22 17:00 | disposition home or self-care (01) ==
LOC: M INFU 15:30
PROVIDERS: ATTEND Psychiatry & Neurology Neurology
DX: G35 Multiple sclerosis (principal)
CPT/HCPCS: 96365; J2930

== ENCOUNTER 2022-07-29 08:40 | Outpatient (CLI) | payer MEDICARE, MEDICAID ==
[~2022-07-29] VITALS: Ht 157.5 cm; Wt 67.0 kg
[2022-07-29 08:40] VITALS: BP 120/67
[2022-07-29] MEDS ORDERED: OCRELIZUMAB 600 MG in NS 500 ML IV ONE (09:00)
[2022-07-29] MEDS ORDERED: diphenhydrAMINE 25MG CAP PO ONE (09:00)
[2022-07-29] MEDS ORDERED: methylPREDNISolone 125MG 2ML VIAL IV ONE (09:00)
[2022-07-29] MEDS ORDERED: OCRELIZUMAB 300 MG in NS 250 ML IV ONE (09:00)
[2022-07-29] MEDS ORDERED: ACETAMINOPHEN TAB 650MG DOSE (2X325MG) PO ONE (09:00)
[2022-07-29] MEDS ORDERED: OCRELIZUMAB 300MG 10ML (OCREVUS) ONE (09:19)
[2022-07-29 10:00] VITALS: BP 125/62
[2022-07-29 10:30] VITALS: BP 128/60
[2022-07-29 11:00] VITALS: BP 112/88
[2022-07-29 12:00] VITALS: BP 120/94
[2022-07-29 12:46] VITALS: BP 158/78
== END 2022-07-29 12:45 ==
LOC: M INFU 08:40
PROVIDERS: ATTEND Psychiatry & Neurology Neurology
DX: G35 Multiple sclerosis (principal)
CPT/HCPCS: 96365; 96366; 96375; J2350; J2930

== ENCOUNTER 2022-08-12 10:30 | Outpatient (CLI) | payer MEDICARE, MEDICAID ==
[2022-08-12] VITALS (7 sets, daily range): BP systolic 128–163; BP diastolic 76–85
[~2022-08-12] VITALS: Ht 157.5 cm; Wt 69.0 kg
[~2022-08-12 10:30] MED LIST changes: +ACETAMINOPHEN TAB 650MG DOSE (2X325MG) PO ONE; +OCRELIZUMAB 300 MG in NS 250 ML IV ONE; +diphenhydrAMINE 25MG CAP PO ONE; +methylPREDNISolone 125MG 2ML VIAL IV ONE
[2022-08-12] MEDS ORDERED: OCRELIZUMAB 300MG 10ML (OCREVUS) ONE (11:02)
== END 2022-08-12 14:00 | disposition home or self-care (01) ==
LOC: M INFU 10:30
PROVIDERS: ATTEND Psychiatry & Neurology Neurology
DX: G35 Multiple sclerosis (principal)
CPT/HCPCS: 96365; 96366; 96375; J2350; J2930

== ENCOUNTER → 2022-09-08 | Outpatient (CLI) | payer MEDICARE, MEDICAID ==
[~2022-09-08] MED LIST changes: -ACETAMINOPHEN TAB 650MG DOSE (2X325MG) PO ONE; -OCRELIZUMAB 300 MG in NS 250 ML IV ONE; -diphenhydrAMINE 25MG CAP PO ONE; -methylPREDNISolone 125MG 2ML VIAL IV ONE
[2022-09-08 11:43] LABS: HEMATOCRIT 45.4 % (36.0-47.0); HEMOGLOBIN 14.9 g/dl (12.0-15.5); MEAN CORPUSCULAR HEMOGLOBIN 30.5 pg (27.0-33.0); MEAN CORPUSCULAR HGB CONC 32.8 g/dl (32.0-36.5); PLATELET COUNT, AUTOMATED 309 10^3/uL (150-450); RED BLOOD COUNT 4.88 10^6/uL (4.00-5.40); WHITE BLOOD COUNT 9.7 10^3/uL (4.0-10.0)
[2022-09-08 12:02] LABS: INR 0.94; PROTHROMBIN TIME 12.8 SECONDS (12.5-14.5)
[2022-09-08 12:14] LABS: ALBUMIN 3.6 G/DL (3.2-5.2); ALKALINE PHOSPHATASE 74 U/L (46-116); ALT/SGPT 21 U/L (7.0-40); AST/SGOT 19 U/L (<34); BILIRUBIN,TOTAL 1.2 MG/DL (0.3-1.2); BLOOD UREA NITROGEN 14 MG/DL (9-23); CALCIUM LEVEL 9.1 MG/DL (8.5-10.1); CARBON DIOXIDE LEVEL 28 MMOL/L (20-31); CHLORIDE LEVEL 107 MMOL/L (98-107); GLOMERULAR FILTRATION RATE > 60.0 (>51); GLUCOSE, FASTING 91 MG/DL (60-100); POTASSIUM SERUM 3.9 MMOL/L (3.5-5.1); SODIUM LEVEL 143 MMOL/L (136-145); TOTAL PROTEIN 6.3 G/DL (5.7-8.2)
[2022-09-08 12:21] LABS: ERYTHROCYTE SEDIMENTATION RATE 19 mm/hr (0-30)
== END ==
LOC: M LAB 10:36
PROVIDERS: ATTEND Orthopaedic Surgery
DX: Z01.818 Encounter for other preprocedural examination (principal); M17.11 Unilateral primary osteoarthritis, right knee

== ENCOUNTER → 2022-09-08 | Outpatient (CLI) | payer MEDICARE, MEDICAID | LOC: M RAD 10:34 | PROVIDERS: ATTEND Internal Medicine Pulmonary Disease | DX: J44.9 Chronic obstructive pulmonary disease, unspecified (principal) ==

== ENCOUNTER → 2023-02-02 | Outpatient (CLI) | payer MEDICARE, MEDICAID ==
[~2023-02-02] MED LIST changes: -OXYC-404 PO; +OXYC20TA64 PO
== END ==
LOC: M WHC 07:24
PROVIDERS: ATTEND Nurse Practitioner Family
DX: Z12.31 Encounter for screening mammogram for malignant neoplasm of breast (principal); Z91.89 Other specified personal risk factors, not elsewhere classified; R92.1 Mammographic calcification found on diagnostic imaging of breast

== ENCOUNTER → 2023-02-10 | Outpatient (CLI) | payer MEDICARE, MEDICAID ==
[~2023-02-10] VITALS: Ht 157.5 cm; Wt 58.2 kg
[~2023-02-10] MED LIST changes: +ACETAMINOPHEN TAB 650MG DOSE (2X325MG) PO ONE; +OCRELIZUMAB 600 MG in NS 500 ML IV ONE; +diphenhydrAMINE 25MG CAP PO ONE; +methylPREDNISolone 125MG 2ML VIAL IV ONE
[2023-02-10 09:15] VITALS: BP 134/76
[2023-02-10 10:30] VITALS: BP 135/71
[2023-02-10 11:00] VITALS: BP 112/59
[2023-02-10 11:30] VITALS: BP 110/60
[2023-02-10 12:56] VITALS: BP 126/74
[2023-02-10 13:45] VITALS: BP 140/70
== END ==
LOC: M INFU 08:55
PROVIDERS: ATTEND Psychiatry & Neurology Neurology
DX: G35 Multiple sclerosis (principal)
CPT/HCPCS: 96365; 96366; J2350; J2930

== ENCOUNTER → 2023-02-20 | Outpatient (CLI) | payer MEDICARE, MEDICAID ==
[~2023-02-20] MED LIST changes: -ACETAMINOPHEN TAB 650MG DOSE (2X325MG) PO ONE; -OCRELIZUMAB 600 MG in NS 500 ML IV ONE; +SENN-111 PO; -SENN18TA PO; -diphenhydrAMINE 25MG CAP PO ONE; -methylPREDNISolone 125MG 2ML VIAL IV ONE
== END ==
LOC: M WHC 12:58
PROVIDERS: ATTEND Nurse Practitioner Family
DX: Z12.31 Encounter for screening mammogram for malignant neoplasm of breast (principal)

== ENCOUNTER → 2023-03-07 | Outpatient (CLI) | payer MEDICARE, MEDICAID ==
[~2023-03-07] MED LIST changes: +**SFHN** LIDOCAINE 1% MDV 20ML VIAL ONE; +**SFHN** SODIUM BICARBONATE 8.4% 50MEQ 50ML VIAL ONE; +AMIT-253 PO; +OCRE300I IV
[2023-03-07 07:49] VITALS: TEMP 98.5
[2023-03-07 09:07] VITALS: BP 122/84; O2SAT 98
== END ==
LOC: M WHCPRO 07:19
PROVIDERS: ATTEND Nurse Practitioner Family
DX: R92.8 Other abnormal and inconclusive findings on diagnostic imaging of breast (principal); N63.21 Unspecified lump in the left breast, upper outer quadrant

== ENCOUNTER → 2023-03-16 | Outpatient (REF) | payer MEDICARE, MEDICAID ==
[~2023-03-16] MED LIST changes: -**SFHN** LIDOCAINE 1% MDV 20ML VIAL ONE; -**SFHN** SODIUM BICARBONATE 8.4% 50MEQ 50ML VIAL ONE
[2023-03-16 11:49] LABS: BASO # 0.1 10^3/uL (0.0-0.2); BASO % 0.5 % (0.0-1.0); EOS # 0.3 10^3/uL (0.0-0.5); EOS % 2.4 % (0.0-3.0); HEMOGLOBIN 16.2 g/dl (12.0-15.5); LYMPH # 1.3 10^3/uL (1.5-5.0); LYMPH % 12.8 % (24.0-44.0); MEAN CORPUSCULAR HEMOGLOBIN 31.5 pg (27.0-33.0); MEAN CORPUSCULAR HGB CONC 33.8 g/dl (32.0-36.5); MEAN CORPUSCULAR VOLUME 93.4 fl (80.0-96.0); MONO # 0.7 10^3/uL (0.0-0.8); MONO % 6.8 % (2.0-8.0); NEUTROPHILS # 7.9 10^3/uL (1.5-8.5); NEUTROPHILS % 75.9 % (36.0-66.0); PLATELET COUNT, AUTOMATED 286 10^3/uL (150-450); RED BLOOD COUNT 5.14 10^6/uL (4.00-5.40); WHITE BLOOD COUNT 10.4 10^3/uL (4.0-10.0)
[2023-03-16 12:13] LABS: FREE T4 1.19 NG/DL (0.89-1.76); THYROID STIMULATING HORMONE 0.536 uIU/ML (0.55-4.78)
[2023-03-16 12:15] LABS: ALKALINE PHOSPHATASE 85 U/L (46-116); ALT/SGPT < 9 U/L (7.0-40); AST/SGOT < 8 U/L (<34); BILIRUBIN,TOTAL 2.1 MG/DL (0.3-1.2); BLOOD UREA NITROGEN 13 MG/DL (9-23); CALCIUM LEVEL 8.7 MG/DL (8.5-10.1); CARBON DIOXIDE LEVEL 32 MMOL/L (20-31); CHLORIDE LEVEL 106 MMOL/L (98-107); CHOLESTEROL LEVEL 142 MG/DL (<200); CHOLESTEROL RISK RATIO 3.47 (<5); CREATININE FOR GFR 0.57 MG/DL (0.55-1.30); GLOMERULAR FILTRATION RATE > 60.0 (>51); GLUCOSE, FASTING 103 MG/DL (60-100); HDL CHOLESTEROL 40.9 MG/DL (>40); LDL CHOLESTEROL 84.9 MG/DL (<100); MAGNESIUM LEVEL 1.6 MG/DL (1.8-2.4); NON-HDL-C 101.1 MG/DL; POTASSIUM SERUM 4.7 MMOL/L (3.5-5.1); SODIUM LEVEL 142 MMOL/L (136-145); TOTAL PROTEIN 6.5 G/DL (5.7-8.2); TRIGLYCERIDES LEVEL 81 MG/DL (<150)
[2023-03-16 12:24] LABS: HEMOGLOBIN A1c 5.5 % (4.0-6.0)
== END ==
LOC: M SFHCCLAY 07:41
PROVIDERS: ATTEND Nurse Practitioner Family
DX: F17.210 Nicotine dependence, cigarettes, uncomplicated (principal); I10 Essential (primary) hypertension; J44.9 Chronic obstructive pulmonary disease, unspecified; R73.01 Impaired fasting glucose; G25.81 Restless legs syndrome; F32.1 Major depressive disorder, single episode, moderate; M21.372 Foot drop, left foot; E78.5 Hyperlipidemia, unspecified

== ENCOUNTER → 2023-04-04 | Outpatient (CLI) | payer MEDICARE, MEDICAID | LOC: M RAD 07:03 | PROVIDERS: ATTEND Nurse Practitioner Family | DX: R17 Unspecified jaundice (principal) ==

== ENCOUNTER → 2023-06-19 | Outpatient (CLI) | payer MEDICARE, MEDICAID | LOC: M RAD 07:46 | PROVIDERS: ATTEND Internal Medicine Pulmonary Disease | DX: Z12.2 Encounter for screening for malignant neoplasm of respiratory organs (principal); Z87.891 Personal history of nicotine dependence ==

== ENCOUNTER 2023-08-11 09:05 | Outpatient (CLI) | payer MEDICARE, MEDICAID ==
[2023-08-11] VITALS (7 sets, daily range): BP systolic 158–172; BP diastolic 87–92; O2SAT 96–100
[~2023-08-11 09:05] MED LIST changes: +ACETAMINOPHEN TAB 650MG DOSE (2X325MG) PO ONE; +BYST1TAB PO; -BYST20TA2 PO; +OCRELIZUMAB 600 MG in NS 500 ML IV ONE; +diphenhydrAMINE 25MG CAP PO ONE; +methylPREDNISolone 125MG 2ML VIAL IV ONE
== END 2023-08-11 14:00 | disposition home or self-care (01) ==
LOC: M INFU 09:05
PROVIDERS: ATTEND Psychiatry & Neurology Neurology
DX: G35 Multiple sclerosis (principal)
CPT/HCPCS: 96365; 96366; 96375; J2350; J2930

== ENCOUNTER 2023-09-19 09:26 | Inpatient (IN) | payer MEDICARE, MEDICAID ==
[~2023-09-19] VITALS: Ht 154.9 cm; Wt 70.0 kg
[2023-09-19] MEDS: TIOTROPIUM INHALER/CAPSULE (SPIRIVA) INH SCH (08:00)
[2023-09-19] MEDS: SYMBICORT 160/4.5MCG INHALER 6GM INH SCH ×2 (08:00→18:33)
[~2023-09-19 09:26] MED LIST changes: -ACETAMINOPHEN TAB 650MG DOSE (2X325MG) PO ONE; +ADVAIR HFA 230/21MCG INHALER INH SCH; -AMLO1TAB25; +AMLO1TAB25 PO; -ATOR40TA75; +ATOR40TA75 PO; -CARV25TA; +CARV25TA PO; -OCRELIZUMAB 600 MG in NS 500 ML IV ONE; -diphenhydrAMINE 25MG CAP PO ONE; -methylPREDNISolone 125MG 2ML VIAL IV ONE
[2023-09-19] MEDS ORDERED: MORPHINE 2 MG/ML 1ML VIAL IV ONE (09:40)
[2023-09-19 10:05] LABS: HEMATOCRIT 49.7 % (36.0-47.0); HEMOGLOBIN 16.6 g/dl (12.0-15.5); MEAN CORPUSCULAR HGB CONC 33.4 g/dl (32.0-36.5); MEAN CORPUSCULAR VOLUME 95.9 fl (80.0-96.0); PLATELET COUNT, AUTOMATED 335 10^3/uL (150-450); RED BLOOD COUNT 5.18 10^6/uL (4.00-5.40); WHITE BLOOD COUNT 7.6 10^3/uL (4.0-10.0)
[2023-09-19 10:15] LABS: INR 0.92; PROTHROMBIN TIME 12.1 SECONDS (12.5-14.5)
[2023-09-19 10:37] LABS: ALBUMIN 3.6 G/DL (3.2-5.2); ALKALINE PHOSPHATASE 90 U/L (46-116); ALT/SGPT 40 U/L (7.0-40); AST/SGOT 36 U/L (<34); BILIRUBIN,TOTAL 1.2 MG/DL (0.3-1.2); BLOOD UREA NITROGEN 10 MG/DL (9-23); CARBON DIOXIDE LEVEL 31 MMOL/L (20-31); CHLORIDE LEVEL 106 MMOL/L (98-107); GLOMERULAR FILTRATION RATE > 60.0 (>51); GLUCOSE, FASTING 112 MG/DL (60-100); POTASSIUM SERUM 4.4 MMOL/L (3.5-5.1); SODIUM LEVEL 141 MMOL/L (136-145); TOTAL PROTEIN 6.4 G/DL (5.7-8.2)
[2023-09-19] MEDS ORDERED: MED REC IN PROGRESS XX SCH (11:25)
[2023-09-19 12:06] LABS: RSV AMPLIFICATION NEGATIVE (NEGATIVE)
[2023-09-19] MEDS ORDERED: VALS1TAB68 PO (12:12)
[2023-09-19] MEDS ORDERED: SYMB16INH PO (12:12)
[2023-09-19] MEDS ORDERED: HOME MED LIST COMPLETE! XX SCH (12:15)
[2023-09-19] MEDS ORDERED: MOM 30ML SUSPENSION UDC PO PRN (12:45)
[2023-09-19] MEDS ORDERED: KETOROLAC 30 MG/ML 1ML VIAL IV PRN (12:45)
[2023-09-19] MEDS ORDERED: MORPHINE 2 MG/ML 1ML VIAL IV PRN (12:45)
[2023-09-19] MEDS ORDERED: ALBUTEROL SULFATE 2.5MG/0.5ML INH NEB SOLN INH PRN (12:45)
[2023-09-19] MEDS ORDERED: methylPREDNISolone 125MG 2ML VIAL IV ONE (14:00)
[2023-09-19] MEDS: MORPHINE 4 MG/ML 1ML VIAL IV PRN (14:34)
[2023-09-19] MEDS: LIDOCAINE 5% (LIDODERM) PATCH TD SCH (14:34)
[2023-09-19] MEDS: PANTOPRAZOLE 40MG TAB (PROTONIX) PO SCH (14:35)
[2023-09-19] MEDS: KETOROLAC 30 MG/ML 1ML VIAL IV SCH ×2 (14:35→21:18)
[2023-09-19] MEDS: BACLOFEN 10 MG TAB PO SCH ×2 (14:35→21:14)
[2023-09-19 15:20] VITALS: BP 143/78; TEMP 98.6; O2SAT 98
[2023-09-19] MEDS ORDERED: ACETAMINOPHEN TAB 650MG DOSE (2X325MG) PO SCH (18:00)
[2023-09-19] MEDS: COMBIVENT RESPIMAT 100-20MCG INHALER 4GM INH PRN (18:33)
[2023-09-19] MEDS: ACETAMINOPHEN 500 MG TAB PO SCH (18:53)
[2023-09-19] MEDS: DOCUSATE SODIUM 100MG CAPSULE PO SCH (21:00)
[2023-09-19] MEDS ORDERED: VALSARTAN 80 MG TAB (DIOVAN) PO SCH (21:00)
[2023-09-19 21:16] VITALS: BP 139/68; TEMP 98.1; O2SAT 95
[2023-09-19] MEDS: CARVedilol 12.5 MG TAB PO SCH (21:16)
[2023-09-19] MEDS: DICLOFENAC EPOLAMINE 1.3% PATCH TOP SCH (21:18)
[2023-09-20] MEDS: ACETAMINOPHEN 500 MG TAB PO SCH ×3 (00:55→12:00)
[2023-09-20] MEDS: MORPHINE 4 MG/ML 1ML VIAL IV PRN ×2 (02:16→09:22)
[2023-09-20] MEDS: KETOROLAC 30 MG/ML 1ML VIAL IV SCH ×2 (04:05→08:07)
[2023-09-20 06:00] VITALS: BP 124/76; TEMP 97.5; O2SAT 95
[2023-09-20 06:33] LABS: MEAN CORPUSCULAR HEMOGLOBIN 31.6 pg (27.0-33.0); MEAN CORPUSCULAR VOLUME 95.6 fl (80.0-96.0); PLATELET COUNT, AUTOMATED 283 10^3/uL (150-450); RED BLOOD COUNT 4.59 10^6/uL (4.00-5.40); WHITE BLOOD COUNT 11.5 10^3/uL (4.0-10.0)
[2023-09-20 06:45] LABS: HEMATOCRIT 43.9 % (36.0-47.0); HEMOGLOBIN 14.5 g/dl (12.0-15.5)
[2023-09-20 07:11] LABS: BLOOD UREA NITROGEN 17 MG/DL (9-23); CALCIUM LEVEL 8.9 MG/DL (8.5-10.1); CARBON DIOXIDE LEVEL 29 MMOL/L (20-31); CHLORIDE LEVEL 105 MMOL/L (98-107); CREATININE FOR GFR 0.63 MG/DL (0.55-1.30); GLOMERULAR FILTRATION RATE > 60.0 (>51); GLUCOSE, FASTING 150 MG/DL (60-100); SODIUM LEVEL 141 MMOL/L (136-145)
[2023-09-20] MEDS: TIOTROPIUM INHALER/CAPSULE (SPIRIVA) INH SCH (07:32)
[2023-09-20] MEDS: SYMBICORT 160/4.5MCG INHALER 6GM INH SCH (07:33)
[2023-09-20] MEDS: COMBIVENT RESPIMAT 100-20MCG INHALER 4GM INH PRN (07:33)
[2023-09-20] MEDS: PANTOPRAZOLE 40MG TAB (PROTONIX) PO SCH (08:07)
[2023-09-20] MEDS: BACLOFEN 10 MG TAB PO SCH (08:07)
[2023-09-20] MEDS: DOCUSATE SODIUM 100MG CAPSULE PO SCH (08:07)
[2023-09-20] MEDS: LIDOCAINE 5% (LIDODERM) PATCH TD SCH (08:08)
[2023-09-20] MEDS: CARVedilol 12.5 MG TAB PO SCH (08:08)
[2023-09-20] MEDS: DICLOFENAC EPOLAMINE 1.3% PATCH TOP SCH (08:08)
[2023-09-20] MEDS ORDERED: ENOXAPARIN 40MG/0.4ML SYRINGE (J1650 PER 10MG) SC SCH (09:00)
[2023-09-20] MEDS ORDERED: ATORVASTATIN 20 MG TAB PO SCH (09:00)
[2023-09-20] MEDS ORDERED: LIDO5TD TD (10:47)
[2023-09-20] MEDS ORDERED: OXYC-517 PO (10:47)
[2023-09-20] MEDS ORDERED: IBUP-1114 PO (10:47)
[2023-09-20] MEDS ORDERED: ACET-683 PO (10:47)
[2023-09-20] MEDS ORDERED: DICL100G10 TOP (10:47)
== END 2023-09-20 13:29 | disposition home or self-care (01) | DRG 536 ==
LOC: M ED 09:26 → EDBD 09:26 → M ED INP 12:41 → M MSPAV 15:20
PROVIDERS: ADMIT Student in an Organized Health Care Education/Training Program; ATTEND Student in an Organized Health Care Education/Training Program
DX: S72.115A Nondisplaced fracture of greater trochanter of left femur, initial encounter for closed fracture (principal); M97.8XXA Periprosthetic fracture around other internal prosthetic joint, initial encounter; G35 Multiple sclerosis; I10 Essential (primary) hypertension; E78.5 Hyperlipidemia, unspecified; J44.9 Chronic obstructive pulmonary disease, unspecified; Z87.891 Personal history of nicotine dependence; F31.9 Bipolar disorder, unspecified; F41.9 Anxiety disorder, unspecified; Z86.73 Personal history of transient ischemic attack (TIA), and cerebral infarction without residual deficits; M21.372 Foot drop, left foot; Z96.642 Presence of left artificial hip joint; W00.0XXA Fall on same level due to ice and snow, initial encounter; Y92.9 Unspecified place or not applicable; Z79.899 Other long term (current) drug therapy; Z91.018 Allergy to other foods; Z91.030 Bee allergy status; Z20.822 Contact with and (suspected) exposure to COVID-19

== ENCOUNTER → 2023-09-27 | Outpatient (CLI) | payer MEDICARE, MEDICAID ==
[~2023-09-27] MED LIST changes: +ACET-683 PO; -ADVAIR HFA 230/21MCG INHALER INH SCH; +DICL100G10 TOP; +IBUP-1114 PO; +IRBE300T25 PO; -IRBE300T7 PO; +LIDO5TD TD; +SYMB16INH PO; +VALS1TAB68 PO
== END ==
LOC: M SOG 07:56
PROVIDERS: ATTEND Orthopaedic Surgery
DX: M25.552 Pain in left hip (principal); Z53.9 Procedure and treatment not carried out, unspecified reason

== ENCOUNTER → 2023-10-18 | Outpatient (CLI) | payer MEDICARE, MEDICAID | LOC: M SOG 07:57 | PROVIDERS: ATTEND Orthopaedic Surgery | DX: S72.115D Nondisplaced fracture of greater trochanter of left femur, subsequent encounter for closed fracture with routine healing (principal); Z53.9 Procedure and treatment not carried out, unspecified reason ==

== ENCOUNTER → 2023-11-15 | Outpatient (CLI) | payer MEDICARE, MEDICAID | LOC: M SOG 07:55 | PROVIDERS: ATTEND Orthopaedic Surgery | DX: S72.115D Nondisplaced fracture of greater trochanter of left femur, subsequent encounter for closed fracture with routine healing (principal) ==

== ENCOUNTER → 2024-01-17 | Outpatient (CLI) | payer MEDICARE, MEDICAID | LOC: M WHC 12:28 | PROVIDERS: ATTEND Nurse Practitioner Family | DX: R92.8 Other abnormal and inconclusive findings on diagnostic imaging of breast (principal); N63.21 Unspecified lump in the left breast, upper outer quadrant | CPT/HCPCS: 76642; 77066; G0279 ==

== ENCOUNTER → 2024-02-01 | Outpatient (CLI) | payer MEDICARE, MEDICAID | LOC: M WHCPRO 11:44 | PROVIDERS: ATTEND Nurse Practitioner Family | DX: R92.8 Other abnormal and inconclusive findings on diagnostic imaging of breast (principal); Z53.9 Procedure and treatment not carried out, unspecified reason ==

== ENCOUNTER 2024-02-12 08:50 | Outpatient (CLI) | payer MEDICARE, MEDICAID ==
[~2024-02-12] VITALS: Ht 157.5 cm; Wt 61.3 kg
[2024-02-12 09:00] VITALS: BP 180/90; O2SAT 98
[2024-02-12] MEDS: diphenhydrAMINE 25MG CAP PO ONE (09:19)
[2024-02-12] MEDS: ACETAMINOPHEN TAB 650MG DOSE (2X325MG) PO ONE (09:19)
[2024-02-12] MEDS: methylPREDNISolone 125MG 2ML VIAL IV ONE (09:19)
[2024-02-12] MEDS: OCRELIZUMAB 600 MG in NS 500 ML IV ONE (09:41)
[2024-02-12 10:15] VITALS: BP 153/73; O2SAT 98
[2024-02-12 10:45] VITALS: BP 170/93; O2SAT 98
[2024-02-12 11:15] VITALS: BP 160/80; O2SAT 100
[2024-02-12 11:45] VITALS: BP 157/84; O2SAT 100
[2024-02-12 13:58] VITALS: BP 184/88; O2SAT 97
== END 2024-02-12 14:00 ==
LOC: M INFU 08:50
PROVIDERS: ATTEND Psychiatry & Neurology Neurology
DX: G35 Multiple sclerosis (principal)
CPT/HCPCS: 96365; 96366; 96375; J2350; J2919

== ENCOUNTER → 2024-07-29 | Outpatient (CLI) | payer MEDICARE, MEDICAID ==
[~2024-07-29] MED LIST changes: -BYST10TA2 PO; +BYST1TAB3 PO; -SENN-111 PO; +SENN-165 PO
== END ==
LOC: M RAD 09:07
PROVIDERS: ATTEND Physician Assistant
DX: Z12.2 Encounter for screening for malignant neoplasm of respiratory organs (principal); Z87.891 Personal history of nicotine dependence

== ENCOUNTER → 2024-08-06 | Outpatient (CLI) | payer MEDICARE, MEDICAID | LOC: M RAD 08:48 | PROVIDERS: ATTEND Registered Nurse | DX: I10 Essential (primary) hypertension (principal) ==

== ENCOUNTER 2024-08-14 08:06 | Outpatient (CLI) | payer MEDICARE, MEDICAID ==
[~2024-08-14] VITALS: Ht 157.5 cm; Wt 70.9 kg
[2024-08-14 08:30] VITALS: BP 176/88; O2SAT 97
[2024-08-14] MEDS: ACETAMINOPHEN 325 MG TAB PO ONE (08:37)
[2024-08-14] MEDS: diphenhydrAMINE 25MG CAP PO ONE (08:38)
[2024-08-14] MEDS: methylPREDNISolone 125MG 2ML VIAL IV ONE (08:38)
[2024-08-14] MEDS: OCRELIZUMAB 600 MG in NS 500 ML IV ONE (08:58)
[2024-08-14 09:49] VITALS: BP 171/86; O2SAT 96
[2024-08-14 10:12] VITALS: BP 152/74; O2SAT 96
[2024-08-14 10:52] VITALS: BP 170/88; O2SAT 95
[2024-08-14 13:08] VITALS: BP 172/88; O2SAT 99
== END 2024-08-14 13:10 | disposition home or self-care (01) ==
LOC: M INFU 08:06
PROVIDERS: ATTEND Psychiatry & Neurology Neurology
DX: G35 Multiple sclerosis (principal); I10 Essential (primary) hypertension; Z91.018 Allergy to other foods; Z91.030 Bee allergy status
CPT/HCPCS: 36415; 80069; 83735; 96365; 96366; 96375; J2350; J2919

== ENCOUNTER → 2024-08-14 | Outpatient (CLI) | payer MEDICARE, MEDICAID ==
[2024-08-14 09:08] LABS: ALBUMIN 3.3 G/DL (3.2-5.2); BLOOD UREA NITROGEN 21 MG/DL (9-23); CALCIUM LEVEL 9.3 MG/DL (8.5-10.1); CARBON DIOXIDE LEVEL 35 MMOL/L (20-31); CHLORIDE LEVEL 104 MMOL/L (98-107); CREATININE FOR GFR 0.65 MG/DL (0.55-1.30); GLOMERULAR FILTRATION RATE > 60.0 (>51); GLUCOSE, FASTING 110 MG/DL (60-100); MAGNESIUM LEVEL 1.7 MG/DL (1.8-2.4); PHOSPHORUS LEVEL 3.8 MG/DL (2.5-4.9); POTASSIUM SERUM 3.8 MMOL/L (3.5-5.1); SODIUM LEVEL 141 MMOL/L (136-145)
== END ==
LOC: M LAB 08:07
PROVIDERS: ATTEND Registered Nurse
DX: I10 Essential (primary) hypertension (principal)

== ENCOUNTER → 2025-08-25 | Outpatient (CLI) | payer OTHER, MEDICAID ==
[~2025-08-25] MED LIST changes: -ADV500INH INH; +ADVA1AER10 INH; +FLUV100T20 PO; -FLUV100T25 PO; -LABE100T6 PO; +LABE100T91 PO; -OXYC20TA64 PO; +OXYC20TA66 PO; -SULF400T14 PO; +SULF400T15 PO
== END ==
LOC: M RAD 10:43
PROVIDERS: ATTEND Physician Assistant
DX: Z12.2 Encounter for screening for malignant neoplasm of respiratory organs (principal); F17.218 Nicotine dependence, cigarettes, with other nicotine-induced disorders; E78.00 Pure hypercholesterolemia, unspecified; I10 Essential (primary) hypertension; R94.31 Abnormal electrocardiogram [ECG] [EKG]

== ENCOUNTER → 2025-08-25 | Outpatient (CLI) | payer OTHER, MEDICAID ==
[2025-08-25 11:18] LABS: BASO # 0.1 10^3/uL (0.0-0.2); BASO % 0.5 % (0.0-1.0); EOS # 0.3 10^3/uL (0.0-0.5); EOS % 2.3 % (0.0-3.0); LYMPH # 1.6 10^3/uL (1.5-5.0); LYMPH % 14.2 % (24.0-44.0); MONO # 0.9 10^3/uL (0.0-0.8); MONO % 7.7 % (2.0-8.0); NEUTROPHILS # 8.5 10^3/uL (1.5-8.5); NEUTROPHILS % 74.9 % (36.0-66.0); PLATELET COUNT, AUTOMATED 311 10^3/uL (150-450)
[2025-08-25 11:51] LABS: CALCIUM LEVEL 9.4 MG/DL (8.5-10.1); CARBON DIOXIDE LEVEL 36 MMOL/L (20-31); CHLORIDE LEVEL 104 MMOL/L (98-107); CHOLESTEROL LEVEL 165 MG/DL (<200); CHOLESTEROL RISK RATIO 2.98 (<5); CREATININE FOR GFR 0.68 MG/DL (0.55-1.30); GLOMERULAR FILTRATION RATE > 90.0 (>51); LDL CHOLESTEROL 88.0 MG/DL (<100); MAGNESIUM LEVEL 1.3 MG/DL (1.8-2.4); NON-HDL-C 109.8 MG/DL; POTASSIUM SERUM 4.0 MMOL/L (3.5-5.1); SODIUM LEVEL 144 MMOL/L (136-145); TRIGLYCERIDES LEVEL 109 MG/DL (<150)
== END ==
LOC: M LAB 10:47
PROVIDERS: ATTEND Nurse Practitioner Family
DX: E78.00 Pure hypercholesterolemia, unspecified (principal); I10 Essential (primary) hypertension; R94.31 Abnormal electrocardiogram [ECG] [EKG]